=== PATIENT | male | born 1960 | race Caucasian/White ===

== ENCOUNTER 2017-06-06 07:51 | Outpatient (RCR) | payer OTHER, SELFPAY ==
--- NOTE | 2017-06-06 09:46 | HP.OTEVAL ---
Patient's Visit Information EDWARD HERNANDEZ is a 56 year old M, referred to Occupational Therapy by Andrea Dunn,, with a diagnosis of Radial Nerve Palsy. Date of Evaluation: 06/06/17 Occupational Therapist: Fariba Negrete - Subjective Subjective: Pt., Edward, arrived and noted symptoms start May 10. He noted he is able to move wirst but is 'extremely weak' and unable to extend fingers at this time. 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 He noted diffculty additionally with ADLs and tasks required bilateral hand integration at this time. He notes he went through both chemo and raidation for lung ca until October of this year. - Objective Objective/Observation: Edward presents with severes decreased stregth of R hand for finger flex/ext. He is able to actively move wrist at this time. Sensation is decreased for light touch and prtection reflex but still WFL. He has h/o finger dislocation on L dominant hand for 3rd and 4th fingers limiting ROM. He is able to form composite fist with B hands at this time. Concerns: Edward would benefit from Benik wrist based raidal nerve drop spint. He may also benefit from EKY/nerve conduction to further determine location of radial nerve impingement as he has noted some increased pain in cervical region. The Benik splint will help promote MCP and soft tissue alignment for him to complete work and home based tasks while strengthening R hand to return to PLOF. [facility] is not DME distrubuter and will not be able to order for client at this time. Please check if this can be ordered through insurance through [facility]. Size Medium/large. - ROM Wrist: flex R 0-70, L 0-70; ext R 5-45, L 0-66 MP: 2-5th R 9-74, 25-76, 31-77, 19-84; L 0-80, 0-77, -10-74, -7-75 PIP: 2nd-5th R 21-100, 33-102, 34-102, 25-98; L 2-99, 50-94, 65-95, 22-95 DIP: 2nd- 5th R 0-55, 0-60, 0-50, 0-43; L 0-51, 2-51, 4-45, 5-39 ROM Comments: Decreased PIP ROM on L 3rd and 4th fingers due to h/o joint displacement (early 80's) and contracture like deformity. - Strength Assistant Warehouse Manager: R 38, L 60 Lateral Pinch: R 10, L 20 Tripod Pinch: R 5, L 18 Tip-to-Tip Pinch: R 5 with increased compensations; L 14 Strength Comments: Compensations noted in three jaw and tip pinch on R affected hand through increased elbow winging to help increased pinch force. Will continue to monitor and address atrength concerns with PRE. - Sensation Thumb: volar R 2.83, L 3.61; dorsal R 3.61, L 3.61 Index: volar R3.22, L 3.61; dorsal R 3.61, L 3.81 Middle: volar R 3.22, L 3.84; dorsal R 3.61, L 3.61 Ring: volar R 3.22, L 3.81; dorsal R 3.61, L 3.22 Little: volar R 3.22, L 3.84; dorsal R 3.22, L 3.61 Sensation Comments: further two point to be completed ove rradial nerve innervation routes. - In-Hand Manipulation Finger to Palm Translation: Moderate - Right, Severe - Right, Normal - Left Palm to Finger Translation: Severe - Right, Normal - Left - DASH-Disabilities of Arm, Shoulder& Hand DASH Sum: 99 - Goals Goal:: Edward to increased R supervisor game farm to that within 10 lbs of L dominant hand 4/5 trials 80% of the time by d/c. Goal:: Edward to be able to complete R finger FMC and dexterity tasks WFL as measured through 9 hole/ purdue pegboard test to that of L nonaffected hand 2/3 trials 75% of the time by d/c. Goal:: Edward to be (I) to button shirt 4/5 trials 80% of the time to return to PLOF by time of d/c. Goal:: Edward to be (I) to complete splint program to promote alignment of fingers libertad work and home activities 4/5 trials 805 of the time by d/c. Goal:: Edward to be mod I to complete HEP to promote increased Natalio nd strength to R affected hand 4/5 trials 80% of the time by d/c. - Rehabilitation General Assessment: Edward is 56 y/o who presents with radial nerve palsy after wrist and below. He noted some discomofrt around neck region and noted no EKG has been performaned at this time to determine impngement of radial nerve. He is able to actively move R wrist but exhibits severely decreased strength and ROm in R compared to L non affected hand at this time. Sensation is decreased in B hands. He will start OT for PRE and fitting for radial nerve splint. Rehabilitation Potential: Excellent - Anticipated Interventions Anticipated Interventions: A/AAROM/PROM, Strengthening, Modalities, Joint Protection/Energy Conservation, Ergonomic Education, Fine Motor Coord/, ADL Training, Caregiver Training, Home Program - Visit Plan Frequency: 2x /Week Duration: 4-6 Weeks TEXT: Thank you for the opportunity to evaluate your patient. For Medicare and Medicare HMO plans, please review the plan of care and approve it. It will need to be FAXED BACK to us at [phone] for Medicare purposes. Please let me know if there are questions or concerns regarding this plan of care. Physician Signature: Date:
--- NOTE | 2017-06-06 10:00 | HP.OTEVAL ---
Patient's Visit Information EDWARD HERNANDEZ is a 56 year old M, referred to Occupational Therapy by Andrea Dunn,, with a diagnosis of Radial Nerve Palsy. Date of Evaluation: 06/06/17 Occupational Therapist: Fariba Negrete - Subjective Subjective: Pt., Edward, arrived and noted symptoms start May 10. He noted he is able to move wirst but is 'extremely weak' and unable to extend fingers at this time. 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 He noted diffculty additionally with ADLs and tasks required bilateral hand integration at this time. He notes he went through both chemo and raidation for lung ca until October of this year. - Objective Objective/Observation: Edward presents with severely decreased stregth of R hand for finger flex/ext. He is able to actively move wrist at this time. Sensation is decreased for light touch and protection reflex but still WFL. He has h/o finger dislocation at PIP on L dominant hand 3rd and 4th fingers limiting ROM. He is able to form composite fist with B hands at this time. Concerns: Edward would benefit from Benik wrist based radial nerve drop splint. He may also benefit from EKG/nerve conduction to further determine location of radial nerve impingement as he has noted some increased pain in cervical region. The Benik splint will help promote MCP and soft tissue alignment for him to complete work and home based tasks while strengthening R hand to return to PLOF. [facility] is not DME distrubuter and will not be able to order for client at this time. Please check if this can be ordered through insurance through [facility]. Size Medium/large. OT called Dr. Dunn'office. Spoke to Kizzy to request and explain need for splint. Talked later with Manjula who is working to get splint run through insurance. Please call at [phone] ([facility]) for additional questions. - ROM Wrist: flex R 0-70, L 0-70; ext R 5-45, L 0-66 MP: 2-5th R 9-74, 25-76, 31-77, 19-84; L 0-80, 0-77, -10-74, -7-75 PIP: 2nd-5th R 21-100, 33-102, 34-102, 25-98; L 2-99, 50-94, 65-95, 22-95 DIP: 2nd- 5th R 0-55, 0-60, 0-50, 0-43; L 0-51, 2-51, 4-45, 5-39 ROM Comments: Decreased PIP ROM on L 3rd and 4th fingers due to h/o joint displacement (early 80's) and contracture like deformity. - Strength Laundry Laborer: R 38, L 60 Lateral Pinch: R 10, L 20 Tripod Pinch: R 5, L 18 Tip-to-Tip Pinch: R 5 with increased compensations; L 14 Strength Comments: Compensations noted in three jaw and tip pinch on R affected hand through increased elbow winging to help increased pinch force. Will continue to monitor and address strength concerns with PRE. - Sensation Thumb: volar R 2.83, L 3.61; dorsal R 3.61, L 3.61 Index: volar R3.22, L 3.61; dorsal R 3.61, L 3.81 Middle: volar R 3.22, L 3.84; dorsal R 3.61, L 3.61 Ring: volar R 3.22, L 3.81; dorsal R 3.61, L 3.22 Little: volar R 3.22, L 3.84; dorsal R 3.22, L 3.61 Sensation Comments: further two point to be completed ove rradial nerve innervation routes. - In-Hand Manipulation Finger to Palm Translation: Moderate - Right, Severe - Right, Normal - Left Palm to Finger Translation: Severe - Right, Normal - Left - DASH-Disabilities of Arm, Shoulder& Hand DASH Sum: 99 - Goals Goal:: Edward to increased R customer energy specialist to that within 10 lbs of L dominant hand 4/5 trials 80% of the time by d/c. Goal:: Edward to be able to complete R finger FMC and dexterity tasks WFL as measured through 9 hole/ purdue pegboard test to that of L nonaffected hand 2/3 trials 75% of the time by d/c. Goal:: Edward to be (I) to button shirt 4/5 trials 80% of the time to return to PLOF by time of d/c. Goal:: Edward to be (I) to complete splint program to promote alignment of fingers libertad work and home activities 4/5 trials 805 of the time by d/c. Goal:: Edward to be mod I to complete HEP to promote increased Natalio nd strength to R affected hand 4/5 trials 80% of the time by d/c. - Rehabilitation General Assessment: Edward is 56 y/o who presents with radial nerve palsy after wrist and below. He noted some discomfort around neck region and noted no EKG has been performed at this time to determine impingement location. He has recently finished chemo and radiation for lung cancer and noted some discoloration and decreased circulation of hands seem to have started post treatments. He is able to actively move R wrist but exhibits severly decreased strength and ROM in R hand compared to L non affected hand at this time. Sensation is decreased in B hands. He will start OT for PRE and fitting for radial nerve splint. Rehabilitation Potential: Excellent - Anticipated Interventions Anticipated Interventions: A/AAROM/PROM, Strengthening, Modalities, Joint Protection/Energy Conservation, Ergonomic Education, Fine Motor Coord/, ADL Training, Caregiver Training, Home Program - Visit Plan Frequency: 2x /Week Duration: 4-6 Weeks General Plan: He will start with PRE to work on finger extension and increasing customer energy specialist and fx pinch patterns in all planes. Edward to be fitted for benik radial nerve splint. Symptoms will be monitored. TEXT: Thank you for the opportunity to evaluate your patient. For Medicare and Medicare HMO plans, please review the plan of care and approve it. It will need to be FAXED BACK to us at [phone] for Medicare purposes. Please let me know if there are questions or concerns regarding this plan of care. Physician Signature: Date:
--- NOTE | 2017-11-07 12:01 | HP.OT.NRP ---
HP - Discharge Summary - Patient Information EDWARD HERNANDEZ was seen in my office for initial evaluation on 06/06/17. The following Plan of Care was established for this patient: Initial Frequency: 2x /Week Initial Duration: 4-6 Weeks - Anticipated Interventions Anticipated Interventions: A/AAROM/PROM, Strengthening, Modalities, Joint Protection/Energy Conservation, Ergonomic Education, Fine Motor Coord/, ADL Training, Caregiver Training, Home Program This patient was last seen in our office 06/06/17. Pertinent comments regarding their Occupational therapy will appear below: Seen one time for therapy. followed up with phone call noting that cancer was back and in brain. Noted to hold chart as he might return later. He has not returned to therapy at this time and will be d/c'd. At this point I will be discontinuing this patient from occupational therapy. I would be happy to see this patient again in the future if found appropriate by the physician. Thank you! Fariba Negrete
== END 2017-06-06 08:15 | disposition home or self-care (01) ==
LOC: OT 07:51
PROVIDERS: Family Provider Internal Medicine; PCP Internal Medicine; Visit Provider Family Medicine
DX: G56.31 Lesion of radial nerve, right upper limb (principal)
CPT/HCPCS: 97166

== ENCOUNTER 2017-07-10 15:39 | Inpatient (IN) | payer OTHER, SELFPAY ==
[2017-07-10 15:40] VITALS: BP 101/52; PULSE 66; RESP 15; TEMP 36.1; O2SAT 95; BMI 30.4
[2017-07-10 15:55] LABS: Bedside Glucose 352 mg/dL (70-110)
--- NOTE | 2017-07-10 15:55 | RAD_ITS ---
STUDY: X-RAY CHEST REASON FOR EXAM: Male, 57 years old. Generalized weakness and high blood sugar. History of stage IV lung cancer with metastasis to brain. TECHNIQUE: Single AP portable view of the chest. COMPARISON: Prior chest radiograph of June 11, 2017. FINDINGS: The lung ramirez are generally hyperexpanded with with marked decrease in the right lower lung zone infiltrates and pleural effusion. Right hilar area remains prominent. Left lung is expanded and clear. Cardiomegaly with right atrial pacemaker and right ventricular defibrillator remaining in good position. Normal mediastinum and ruma. Normal visualized pulmonary arteries. Normal visualized aortic arch and descending thoracic aorta. Normal visualized ribs, clavicles, and shoulders. There is no demonstrated abnormality of the visualized soft tissue structures of the upper abdomen. RAD/Chest 1 View (Portable) IMPRESSION: Right hilum remaining prominent after a substantial improvement in the right lower lung infiltrates/atelectasis and pleural effusion. Left lung remains expanded and clear. Continued cardiomegaly. Right atrial and ventricular ICD unchanged. Electronically Signed: Lisa Rose MD at 16:22 EST , Service support ,
--- NOTE | 2017-07-10 15:58 | ED.VISSUMM ---
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 Patient went through chemotherapy last year and radiation therapy last week. He is inoperable. He also has cardiomyopathy and a prior history of A. fib. He was sent in today by his oncologist Dr. Rene Church for dehydration today and generalized weakness. Dr. Church feels he needs admitted. Patient is currently on prednisone for swelling of his brain secondary to brain metastases and has had elevated blood sugars and has no known history of diabetes. Physical Examination: Middle-aged male no acute distress. Vital signs are stable afebrile. Blood pressure 101/52. Pulse ox 95% on room air no hypoxia. HEENT exam unremarkable other than thrush on his tongue. Mildly dehydrated. Neck nontender no JVD. No lymphadenopathy. Lungs clear to auscultation bilaterally. Heart regular rate and rhythm no murmur. Abdomen soft and nontender. No peritoneal signs. He is moving all 4 extremities. He is weak on the right side both the right upper and right lower extremity which is from his brain metastases. Neurologically is awake and alert and follows commands. He does have a known right-sided weakness. Test Results: CBC white count 10 H&H 1751. No bands. Electrolytes show a gap of 10. Glucose of 289. BUN is 70 and creatinine of 2.02. Consistent with dehydration and renal insufficiency. His last creatinine was around 1.5 and before that they were normal. Emergency Department Course and Treatment: Patient will be hydrated with IV fluids. Screening labs be obtained. I will speak to the hospitalist about admission. Treatment Plan: Patient treated with IV fluids. He will be admitted. I very spoken to the hospitalist. Disposition: Admission Impression: Stage IV small cell lung CA with brain metastases Hyperglycemia Generalized weakness History of cardiomyopathy with A. fib and a pacemaker defibrillator Renal insufficiency Dehydration This note was generated with [employer] dictation software. It may contain incorrect words, spelling, and punctuation that were not noted in review of the chart prior to signing ED Disposition - Plan for ED Patient: Chief Complaint: Hyperglycemia Referrals: Branden Rebolledo MD [Primary Care Provider] -
[2017-07-10] MEDS: 0.9% Normal Saline 1,000 ML 1000 ML IV (16:08)
[2017-07-10 16:29] LABS: Hemoglobin 17.6 g/dl (13.0-16.5); Lymphocyte % 1.9 % (19-41); Mean Corp Hgb Conc 34.5 g/gl (32-36); Mean Corpuscular Hgb 32.4 pg (27.0-32.0); Mean Corpuscular Volume 93.9 fL (80-94); Monocyte# 0.16 X10^3/uL; Monocyte% 1.5 % (0-10); Neutrophil # 10.03 X10^3/uL (2.7-7.7); Neutrophil % 96.3 % (47-70); Platelet Count 93 K/mm3 (150-450); RBC Distribution Width CV 15.1 % (11.6-14.6); RBC Distribution Width SD 51.1 fl (35.1-43.9); Red Blood Count 5.43 M/mm3 (4.6-6.2); White Blood Count 10.4 K/mm3 (4.4-11.0)
[2017-07-10 16:31] LABS: Differential Indicated SCAN CRITERIA MET; POSITIVE COUNT NO; POSITIVE DIFFERENTIAL YES; POSITIVE MORPHOLOGY NO
[2017-07-10 16:34] VITALS: BP 105/70; PULSE 70; RESP 14; O2SAT 96
[2017-07-10 16:37] LABS: Anion Gap 10 (5-15); BUN 70 mg/dL (7-18); BUN/Creat Ratio 34.7 RATIO (10-20); Calcium,Total 8.5 mg/dL (8.5-10.1); Chloride 93 mmol/L (98-107); Creatinine, Serum 2.02 mg/dL (0.70-1.30); EST Glomerular Filtration Rate 36 mL/min (>60); Est Glom Filt Rate - Afr Amer 44 mL/min (>60); Estimated Creatinine Clearance 48.22 ml/min; Glucose 289 mg/dL (70-110); Potassium 4.4 mmol/L (3.5-5.1); Sodium Level 134 mmol/L (136-145)
--- NOTE | 2017-07-10 17:06 | NURSING ---
MED SURG TERMINAL LUNG CANCER SCOTT
[2017-07-10 17:07] LABS: Differential Comment SCANNED; Platelet Estimate SLT DEC (ADEQ)
[2017-07-10 17:55] VITALS: BP 100/64; PULSE 69; RESP 20; TEMP 36.3; O2SAT 100
[2017-07-10 18:00] VITALS: BMI 28.8
[2017-07-10 18:05] VITALS: BMI 28.9
--- NOTE | 2017-07-10 18:32 | PCM.HP.STD ---
<Madhu De La Torre - Last Filed: 07/10/17 18:57> Problem List (1) JERRY (acute kidney injury) Status: Acute (2) Cardiomyopathy Status: Chronic (3) Lung cancer metastatic to brain Status: Chronic (4) Hypertension Status: Chronic (5) Afib Status: Chronic (6) Seizure Status: Chronic (7) Debility Status: Chronic (8) Thrombocytopenia Status: Chronic History of Present Illness Date of Admission: 07/10/17 Chief Complaint: abnormal labs The patient is a 57 year old M who presented to the ER from Dr. Church's office for abnormal kidney function. He was told he was dehydrated and sent after showing up for an appointment to have a CT done. He has stage 4 lung cancer that has multiple mets to the brain. The patient was started on radiation this past month and has had multiple treatments. He is planning to pursue gamma knife therapy if the radiation is successful and more chemotherapy per Dr. Church. He believes the lung cancer is in remission, as it has not been treated since last November. The brain cancer was found after he developed weakness of his right hand and leg. This has significantly worsened in the past several days, with him being more weak and falling at home. He currently has no home care and he does not want placed anywhere. He states he should not be dehydrated as he has been drinking a lot of water, and he did not follow a recent order to increase his home bumex dose. He also has not had a history of diabetes, but is chronically on steroids and has recently developed uncontrolled blood sugar. He has never considered or had any discussion surrounding pallative care of hospice despite knowing that his disease is ultimately uncurable. He is not interested in hospice at this time. He would be interested in Home Care. [] Past Medical History Past Medical History (Chronic Problems): Chronic Problems Hypertension (Chronic) Afib (Chronic) Pacemaker (Chronic) Tobacco dependence (Chronic) Cardiomyopathy (Chronic) Lung cancer metastatic to brain (Chronic) Seizure (Chronic) Debility (Chronic) Thrombocytopenia (Chronic) Allergies No Known Allergies Allergy (Verified 06/11/17 14:25) Home Medications: Ambulatory Orders Medication Instructions Recorded Amiodarone HCl 400 mg PO QHS 04/19/16 Lisinopril [Zestril] 10 mg PO DAILY 04/19/16 Albuterol IH (ProAir) [Proair Hfa 1 - 2 puff INHALATION Q4H PRN PRN 06/11/17 (SP)Vent Pts] Bumetanide [Bumex] 2 mg PO DAILY 06/11/17 Digoxin 125 mcg PO SUMOWETHFR 06/11/17 Metoprolol Succinate 50 mg PO QHS 06/11/17 Spironolactone [Aldactone] 25 mg PO DAILY 06/11/17 Acetaminophen [Tylenol] 1 - 2 tab PO Q4H PRN PRN 07/10/17 Dexamethasone 4 mg PO Q8H 07/10/17 Levetiracetam [Keppra] 1,000 mg PO BID 07/10/17 Nystatin 5 ml PO 4X/DAY 07/10/17 Pantoprazole Sodium [Protonix] 40 mg PO DAILY 07/10/17 Surgical History: pacemaker implantation Psychiatric History: No pertinent psych hx Lives: Spouse/ Significant Other Smoking Status: Light Smoker (<10/day) Alcohol: None Drugs: None - *Family History Sibling History Items: Heart Disease Review of Systems Constitutional: Denies: Chills, Fever, Weight Change HEENT: Denies: Head Aches, Sinus Congestion, Sinus Drainage Cardiovascular: Denies: Chest Pain, Palpitations Respiratory: Denies: Cough, Shortness of breath at rest, Sputum production Gastrointestinal: Denies: Abdominal Pain, Nausea, Vomiting Genitourinary: Denies: Dysuria Musculoskeletal: Denies: Joint Pain, Joint Tenderness Skin: Denies: Rash, Wounds Neurological: Reports: - - right sided weakness. Denies: Focal weakness, Numbness, Tingling Psychiatric: Denies: Anxiety, Depression, Homicidal Ideations, Suicidal Ideations Hematologic/ Lymphatic: Denies: Easy Bruising, Easy Bleeding VTE Information - Inpt Only VTE Present on Admission: No VTE Mechan Device Prophylaxis: SCD's VTE Pharm Prophylaxis ordered?: No Reason prophylaxis not ordered:: Medical Contraindication Patient Problems: Active and Suspected Problems JERRY (acute kidney injury) (Acute) - Physical Exam Vital Signs Temp Pulse Resp BP Pulse Ox 97.4 F L 69 20 H 100/64 100 07/10/17 17:55 07/10/17 17:55 07/10/17 17:55 07/10/17 17:55 07/10/17 17:55 Oxygen Delivery Method Room Air Weight: 104.7 kg Body Mass Index (BMI) 28.8 Assessment/Plan Active and Suspected Problems JERRY (acute kidney injury) (Acute) 1. JERRY - BUN 70 with creatinine 2.02. unclear etiology. Doubt dehydration as he reports heavy PO intake. DC lisinopril and bumex for now. Gentle IV fluids. Glucose goal 130. Check renal ultrasound. 2. SC lung cancer with metastatic disease to the brain - pt not interested in hospice at this point. He is undergoing radiation and plans for gamma knife and more chemo. His symptoms of right sided weakness have worsened over the past week. He also was found to have a seizure disorder after the brain mets were found when he was found to have a new tremor in his leg. He has recently been started on anti epileptics. Consult to Dr. Church for further recommendations. 3. 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 Start weight based levemir with sliding scale insulin. Check A1C. 4. Cardiomyopathy - unclear subtype. Avoid over hydrating the patient. 5. Paroxysmal atrial fibrillation - recently taken off of warfarin when the brain mets were found. Continue BB and amiodarone 6. Mild hyponatremia possibly 2/2 diuretic or lung cancer. 7. Seizure disorder - focal, LE suspected 2/2 brain mets. Continue home meds. 8. Debility - falls at home recently 2/2 R sided weakness. PTOT. 9. Thrombocytopenia - unclear etiology. No heparin products. DVT ppx: SCDs, chemoppx contraindicated with #9. DC planning: Pt wants to go home. I suggest home health as he has been falling at home. This patient was seen by Madhu De La Torre PA-C under the supervision of Doctor Steffen. <Dev Bourne - Last Filed: 07/10/17 21:17> History of Present Illness Seen and examined. Patient has a history of lung cancer, stage IV with multiple metastases to the brain. He had chemoradiation of lung completed last year; as per the in remission. He has been brain metastases for which he completed 10 sessions of radiation, last week. Chest x-ray that was done in the ER shows substantial improvement in right lower lung infiltrate/atelectasis and pleural effusion as compared to previous chest x-ray of June 11, 2017. Past Medical History Allergies No Known Allergies Allergy (Verified 06/11/17 14:25) - Physical Exam General: Alert, Oriented x3, Cooperative HEENT: Atraumatic, PERRLA, EOMI, Normocephalic Neck: Supple, No JVD, Negative Carotid Bruits Lungs: Diminished, - - Small area of stony dullness at right 10th intercostal space posteriorly Cardiovascular: Regular rate, Regular Rhythm, Normal S1, Normal S2, No murmurs Abdomen: Bowel Sounds Present, Soft, Non Tender, Non-Distended Extremities: No edema, Capillary Refill Less than 3 Seconds Skin: - - Bruise present all over, predominantly in upper extremities. Multiples skin and subcutaneous nodules present on the back, patient states present since teenage and benign. Musculoskeletal: No Tenderness to Palpation of Joints or Extremities, Arthritic Changes, Muscle Wasting Neurological: Cranial nerves II-XII grossly intact Psych/Mental Status: Normal Affect, Appropriate Vital Signs Temp Pulse Resp BP Pulse Ox 97.4 F L 69 20 H 100/64 100 07/10/17 17:55 07/10/17 17:55 07/10/17 17:55 07/10/17 17:55 07/10/17 17:55 Oxygen Delivery Method Room Air Weight: 230 lb 13.184 oz Body Mass Index (BMI) 28.8 Assessment/Plan This patient was seen in conjunction with Madhu MCKEON. I have independently interviewed and examined the patient and reviewed pertinent history, examination findings, laboratory and plan of management. I have reviewed the note and agree with the documented findings with the few additional points. In brief, patient is admitted for acute kidney injury most rarely prerenal from dehydration. Continue IV fluid hydration. Patient also feels very weak and has fallen about 3 times in last 2 days. Patient using walker as per the . At this point, anticoagulant/antiplatelet is contraindicated because of multiple bruits and thrombocytopenia. PT and INR ordered. Machine Lead Burner consult. Advance care directive discussed with the patient currently, they are not able to make any decision but want palliative care help. Palliative care consult. For now continue full code. About 16 minutes is spent on discussing advanced care directive. I have discussed my assessment with Madhu MCKEON and orders have been reviewed. Code Visit Inpatient E&M: 15813 Init Hosp L3 Procedures: 93380 Advncd Care Plan 30 Min
--- NOTE | 2017-07-10 18:48 | HP.PCM_ITS ---
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 Original Note: <Madhu De La Torre - Last Filed: 07/10/17 18:57> Problem List (1) JERRY (acute kidney injury) Status: Acute (2) Cardiomyopathy Status: Chronic (3) Lung cancer metastatic to brain Status: Chronic (4) Hypertension Status: Chronic (5) Afib Status: Chronic (6) Seizure Status: Chronic (7) Debility Status: Chronic (8) Thrombocytopenia Status: Chronic History of Present Illness Date of Admission: 07/10/17 Chief Complaint: abnormal labs The patient is a 57 year old M who presented to the ER from Dr. Church's office for abnormal kidney function. He was told he was dehydrated and sent after showing up for an appointment to have a CT done. He has stage 4 lung cancer that has multiple mets to the brain. The patient was started on radiation this past month and has had multiple treatments. He is planning to pursue gamma knife therapy if the radiation is successful and more chemotherapy per Dr. Church. He believes the lung cancer is in remission, as it has not been treated since last November. The brain cancer was found after he developed weakness of his right hand and leg. This has significantly worsened in the past several days, with him being more weak and falling at home. He currently has no home care and he does not want placed anywhere. He states he should not be dehydrated as he has been drinking a lot of water, and he did not follow a recent order to increase his home bumex dose. He also has not had a history of diabetes, but is chronically on steroids and has recently developed uncontrolled blood sugar. He has never considered or had any discussion surrounding pallative care of hospice despite knowing that his disease is ultimately uncurable. He is not interested in hospice at this time. He would be interested in Home Care. [] Past Medical History Past Medical History (Chronic Problems): Chronic Problems Hypertension (Chronic) Afib (Chronic) Pacemaker (Chronic) Tobacco dependence (Chronic) Cardiomyopathy (Chronic) Lung cancer metastatic to brain (Chronic) Seizure (Chronic) Debility (Chronic) Thrombocytopenia (Chronic) Allergies No Known Allergies Allergy (Verified 06/11/17 14:25) Home Medications: Ambulatory Orders Medication Instructions Recorded Amiodarone HCl 400 mg PO QHS 04/19/16 Lisinopril [Zestril] 10 mg PO DAILY 04/19/16 Albuterol IH (ProAir) [Proair Hfa 1 - 2 puff INHALATION Q4H PRN PRN 06/11/17 (SP)Vent Pts] Bumetanide [Bumex] 2 mg PO DAILY 06/11/17 Digoxin 125 mcg PO SUMOWETHFR 06/11/17 Metoprolol Succinate 50 mg PO QHS 06/11/17 Spironolactone [Aldactone] 25 mg PO DAILY 06/11/17 Acetaminophen [Tylenol] 1 - 2 tab PO Q4H PRN PRN 07/10/17 Dexamethasone 4 mg PO Q8H 07/10/17 Levetiracetam [Keppra] 1,000 mg PO BID 07/10/17 Nystatin 5 ml PO 4X/DAY 07/10/17 Pantoprazole Sodium [Protonix] 40 mg PO DAILY 07/10/17 Surgical History: pacemaker implantation Psychiatric History: No pertinent psych hx Lives: Spouse/ Significant Other Smoking Status: Light Smoker (<10/day) Alcohol: None Drugs: None - *Family History Sibling History Items: Heart Disease Review of Systems Constitutional: Denies: Chills, Fever, Weight Change HEENT: Denies: Head Aches, Sinus Congestion, Sinus Drainage Cardiovascular: Denies: Chest Pain, Palpitations Respiratory: Denies: Cough, Shortness of breath at rest, Sputum production Gastrointestinal: Denies: Abdominal Pain, Nausea, Vomiting Genitourinary: Denies: Dysuria Musculoskeletal: Denies: Joint Pain, Joint Tenderness Skin: Denies: Rash, Wounds Neurological: Reports: - - right sided weakness. Denies: Focal weakness, Numbness, Tingling Psychiatric: Denies: Anxiety, Depression, Homicidal Ideations, Suicidal Ideations Hematologic/ Lymphatic: Denies: Easy Bruising, Easy Bleeding VTE Information - Inpt Only VTE Present on Admission: No VTE Mechan Device Prophylaxis: SCD's VTE Pharm Prophylaxis ordered?: No Reason prophylaxis not ordered:: Medical Contraindication Patient Problems: Active and Suspected Problems JERRY (acute kidney injury) (Acute) - Physical Exam Vital Signs Temp Pulse Resp BP Pulse Ox 97.4 F L 69 20 H 100/64 100 07/10/17 17:55 07/10/17 17:55 07/10/17 17:55 07/10/17 17:55 07/10/17 17:55 Oxygen Delivery Method Room Air Weight: 104.7 kg Body Mass Index (BMI) 28.8 Assessment/Plan Active and Suspected Problems JERRY (acute kidney injury) (Acute) 1. JERRY - BUN 70 with creatinine 2.02. unclear etiology. Doubt dehydration as he reports heavy PO intake. DC lisinopril and bumex for now. Gentle IV fluids. Glucose goal 130. Check renal ultrasound. 2. SC lung cancer with metastatic disease to the brain - pt not interested in hospice at this point. He is undergoing radiation and plans for gamma knife and more chemo. His symptoms of right sided weakness have worsened over the past week. He also was found to have a seizure disorder after the brain mets were found when he was found to have a new tremor in his leg. He has recently been started on anti epileptics. Consult to Dr. Church for further recommendations. 3. 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 Start weight based levemir with sliding scale insulin. Check A1C. 4. Cardiomyopathy - unclear subtype. Avoid over hydrating the patient. 5. Paroxysmal atrial fibrillation - recently taken off of warfarin when the brain mets were found. Continue BB and amiodarone 6. Mild hyponatremia possibly 2/2 diuretic or lung cancer. 7. Seizure disorder - focal, LE suspected 2/2 brain mets. Continue home meds. 8. Debility - falls at home recently 2/2 R sided weakness. PTOT. 9. Thrombocytopenia - unclear etiology. No heparin products. DVT ppx: SCDs, chemoppx contraindicated with #9. DC planning: Pt wants to go home. I suggest home health as he has been falling at home. This patient was seen by Madhu De La Torre PA-C under the supervision of Doctor Steffen. <Dev Bourne - Last Filed: 07/10/17 21:17> History of Present Illness Seen and examined. Patient has a history of lung cancer, stage IV with multiple metastases to the brain. He had chemoradiation of lung completed last year; as per the in remission. He has been brain metastases for which he completed 10 sessions of radiation, last week. Chest x-ray that was done in the ER shows substantial improvement in right lower lung infiltrate/atelectasis and pleural effusion as compared to previous chest x-ray of June 11, 2017. Past Medical History Allergies No Known Allergies Allergy (Verified 06/11/17 14:25) - Physical Exam General: Alert, Oriented x3, Cooperative HEENT: Atraumatic, PERRLA, EOMI, Normocephalic Neck: Supple, No JVD, Negative Carotid Bruits Lungs: Diminished, - - Small area of stony dullness at right 10th intercostal space posteriorly Cardiovascular: Regular rate, Regular Rhythm, Normal S1, Normal S2, No murmurs Abdomen: Bowel Sounds Present, Soft, Non Tender, Non-Distended Extremities: No edema, Capillary Refill Less than 3 Seconds Skin: - - Bruise present all over, predominantly in upper extremities. Multiples skin and subcutaneous nodules present on the back, patient states present since teenage and benign. Musculoskeletal: No Tenderness to Palpation of Joints or Extremities, Arthritic Changes, Muscle Wasting Neurological: Cranial nerves II-XII grossly intact Psych/Mental Status: Normal Affect, Appropriate Vital Signs Temp Pulse Resp BP Pulse Ox 97.4 F L 69 20 H 100/64 100 07/10/17 17:55 07/10/17 17:55 07/10/17 17:55 07/10/17 17:55 07/10/17 17:55 Oxygen Delivery Method Room Air Weight: 230 lb 13.184 oz Body Mass Index (BMI) 28.8 Assessment/Plan This patient was seen in conjunction with Madhu MCKEON. I have independently interviewed and examined the patient and reviewed pertinent history, examination findings, laboratory and plan of management. I have reviewed the note and agree with the documented findings with the few additional points. In brief, patient is admitted for acute kidney injury most rarely prerenal from dehydration. Continue IV fluid hydration. Patient also feels very weak and has fallen about 3 times in last 2 days. Patient using walker as per the . At this point, anticoagulant/antiplatelet is contraindicated because of multiple bruits and thrombocytopenia. PT and INR ordered. Ultrasound Sonographer consult. Advance care directive discussed with the patient currently, they are not able to make any decision but want palliative care help. Palliative care consult. For now continue full code. About 16 minutes is spent on discussing advanced care directive. I have discussed my assessment with Madhu MCKEON and orders have been reviewed. Code Visit Inpatient E&M: 07982 Init Hosp L3 Procedures: 42950 Advncd Care Plan 30 Min
--- NOTE | 2017-07-10 18:50 | US_ITS ---
STUDY: RENAL ULTRASOUND - COMPLETE REASON FOR EXAM: Male, 57 years old. Acute renal failure. History of terminal lung cancer. TECHNIQUE: Ultrasound evaluation of the kidneys was performed with real-time and static price-scale imaging. COMPARISON: None. FINDINGS: RIGHT KIDNEY: Normal location of the right kidney, which is normal in size. The right kidney measures 10.5 x 4.6 x 5.5 cm. There is a normal cortex of the right kidney. The renal cortex measures 1.7 cm. 1 cm exophytic cyst of the midpole. There are no right renal calculi. There is no right hydronephrosis. DISTAL RIGHT URETER: There is non-visualization of the distal right ureter. There is no demonstrated right ureteral jet. LEFT KIDNEY: Normal location of the left kidney, which is normal in size. The left kidney measures 11.9 x 4.9 x 5.8 cm. There is a normal cortex of the left kidney. The renal cortex measures 1.7 cm. There is no left renal mass or cyst. There are no left renal calculi. There is no left hydronephrosis. DISTAL LEFT URETER: There is non-visualization of the distal left ureter. There is no demonstrated left ureterovesical junction calculus. There is a visualized left ureteral jet. BLADDER: The distended urinary bladder has a volume of 192 ml. There is a normal wall thickness of the distended urinary bladder. There is no demonstrated mass within the urinary bladder. There are no demonstrated bladder calculi. US/Kidney and Bladder IMPRESSION: Normal size kidneys bilaterally without hydronephrosis or stones. 1 cm exophytic cyst of the right kidney. Unremarkable urinary bladder. Electronically Signed: Lisa Rose MD at 22:11 EST , Service support ,
[2017-07-10] MEDS: 0.9% Normal Saline 1,000 ML 75 ML IV (20:23)
[2017-07-10 20:30] LABS: Thyroid Stim Hormone (TSH) 1.23 uIU/mL (0.358-3.74)
[2017-07-10 20:52] LABS: Hemoglobin A1c 7.3 % (4.2-6.3)
[2017-07-10 21:53] VITALS: BP 111/73; PULSE 63; RESP 18; TEMP 36.2; O2SAT 99
[2017-07-10 22:00] VITALS: PULSE 63
[2017-07-10] MEDS: NYSTATIN 500,000 UNIT/5 ML UDC 500000 UNIT PO (22:00)
[2017-07-10] MEDS: Metoprolol(XL)Succ 50 MG Tablet PO (22:00)
[2017-07-10] MEDS: Amiodarone 200 MG Tablet 400 MG PO (22:01)
[2017-07-10] MEDS: levETIRAcetam 1,000 MG Tablet 1000 MG PO (22:03)
[2017-07-10] MEDS: Glucerna Shake 120 ML LIQUID PO (22:11)
[2017-07-10 23:01] LABS: International Normalized Ratio 1.3; Prothrombin Time (Protime)PT. 15.7 SECONDS (11.7-14.9)
[2017-07-10 23:02] LABS: Partial Thromboplast Time 23.8 Seconds (24.1-36.2)
[2017-07-10] MEDS: 0.9% Normal Saline 1,000 ML 125 ML IV (23:07)
[2017-07-10 23:21] LABS: Bedside Glucose 283 mg/dL (70-110)
[2017-07-11] VITALS (7 sets, daily range): BP systolic 108–120; BP diastolic 70–86; PULSE 62–66; RESP 14–18; TEMP 36.6–37; O2SAT 97–100
[2017-07-11 06:23] LABS: Absolute Lymphocyte Count 0.27 X10^3/ul (0.83-4.51); Absolute Neutrophil Count 8.5 X10^3/uL (2.0-7.7); Eosinophil# 0.01 X10^3/uL; Eosinophils% 0.1 % (0-5); Hematocrit 43.9 % (40-54); Hemoglobin 15.4 g/dl (13.0-16.5); Lymphocyte # 0.27 X10^3/ul (4.0); Mean Corp Hgb Conc 35.1 g/gl (32-36); Mean Platelet Vol. 9.4 fl (6.2-12.0); Monocyte# 0.26 X10^3/uL; Monocyte% 2.9 % (0-10); Neutrophil # 8.45 X10^3/uL (2.7-7.7); Neutrophil % 93.6 % (47-70); Platelet Count 77 K/mm3 (150-450); RBC Distribution Width CV 14.9 % (11.6-14.6); RBC Distribution Width SD 49.2 fl (35.1-43.9); Red Blood Count 4.67 M/mm3 (4.6-6.2)
[2017-07-11 06:25] LABS: Differential Indicated SCAN CRITERIA MET; POSITIVE COUNT NO; POSITIVE DIFFERENTIAL YES; POSITIVE MORPHOLOGY NO
[2017-07-11 06:29] LABS: Anion Gap 9 (5-15); BUN 60 mg/dL (7-18); BUN/Creat Ratio 35.7 RATIO (10-20); Chloride 101 mmol/L (98-107); Creatinine, Serum 1.68 mg/dL (0.70-1.30); EST Glomerular Filtration Rate 45 mL/min (>60); Est Glom Filt Rate - Afr Amer 54 mL/min (>60); Estimated Creatinine Clearance 57.98 ml/min; Glucose 209 mg/dL (70-110); Potassium 4.3 mmol/L (3.5-5.1); Sodium Level 134 mmol/L (136-145)
[2017-07-11] MEDS: 0.9% Normal Saline 1,000 ML 125 ML IV ×3 (07:03→22:18)
[2017-07-11 07:11] LABS: Bedside Glucose 230 mg/dL (70-110)
--- NOTE | 2017-07-11 07:56 | PCM.PN.HOSP ---
Patient Problems: Active and Suspected Problems JERRY (acute kidney injury) (Acute) Subjective: Patient with no acute events overnight per self and per nursing report. He notes feeling mildly improved since admission and per staff has been eating quite well as well as appropriate fluid intake. Patient states that he does have increased right upper and lower extremity weakness as well as onset now of left lower extremity weakness over the last several weeks which has been progressively worsening. He notes that he was supposed to have CT evaluation for continued evaluation for possible gamma knife intervention however this was deferred and he was referred to the emergency room secondary to evidence of acute kidney injury. Patient denies fevers, chills, nausea, emesis, abdominal pain, chest pain or dyspnea. Objective: Physical Examination: General: awake, alert, oriented x 3 and cooperative, seated upright in bed in no apparent distress. Skin: normal color, turgor, no icterus, cyanosis except bilateral lower extremity small ecchymotic regions diffusely. HEENT: AT/NC, EOMI, PERRLA, MMM. Lungs: CTA bilaterally, moderate effort, mild decrease BL bases, no rales, ronchi or wheezing. Heart: Regular rate and rhythm; no gallop, rub audible. Abdomen: soft, NTTP, ND, normal BS. Extremities: no cyanosis, clubbing, BL mild ankle edema. Neurological: patient awake, alert, oriented x 3; cognitive function intact; pupils equally reactive to light and accomodation; cranial nerves II-XII grossly normal, moving all 4 extremities but limited RU, RL and some LLE, strength R sided 3-4/5, LLE 4/5, sensation intact, equiv babinski, difficulty with FTN, HTS R sided secondary to weakness, strength severely globally decreased. Psychiatric: affect appears normal, no acute evidence of depressive or anxiety feelings. Vitals/I&O's: Vital Signs Temp Pulse Resp BP Pulse Ox 97.9 F 62 18 113/74 98 07/11/17 03:14 07/11/17 03:14 07/11/17 03:14 07/11/17 03:14 07/11/17 03:14 Oxygen Delivery Method Room Air Weight: 230 lb 13.184 oz Body Mass Index (BMI) 28.8 Intake and Output for Last 24 Hours 07/09/17 07/10/17 07/11/17 23:59 23:59 23:59 Intake Total 843 / 843 978 / 978 Output Total 475 / 475 Balance 368 / 368 978 / 978 Laboratory Results 07/10/17 21:57: POC Glucose 283 H 07/10/17 22:15: PT 15.7 H, INR 1.3, APTT 23.8 L 07/11/17 05:42: WBC 9.0, RBC 4.67, Hgb 15.4, Hct 43.9, MCV 94.0, MCH 33.0 H, MCHC 35.1, RDW 14.9 H, RDW Differential 49.2 H, Plt Count 77 L, MPV 9.4, Immature Gran % (Auto) 0.400, Neut % (Auto) 93.6 H, Lymph % (Auto) 3.0 L, Sabine % (Auto) 2.9, Eos % (Auto) 0.1, Baso % (Auto) 0.0, Absolute Neuts (auto) 8.5 H, Absolute Lymphs (auto) 0.27 L, Total Counted Not Reportable 07/11/17 05:42: Sodium 134 L, Potassium 4.3, Chloride 101, Carbon Dioxide 24.0, Anion Gap 9, BUN 60 H, Creatinine 1.68 H, Estim Creat Clear Calc 57.98, Est GFR (MDRD) Af Amer 54 L, Est GFR (MDRD) Non-Af 45 L, BUN/Creatinine Ratio 35.7 H, Glucose 209 H, Calcium 8.0 L 07/11/17 06:51: POC Glucose 230 H Current Medications Albuterol Sulfate (Ventolin Aerosols) 2.5 mg INHALATION Q2H PRN PRN PRN Reason: SOB &/OR WHEEZING Amiodarone HCl (Cordarone) 400 mg PO QHS [facility] Last Admin: 07/10/17 22:01 Dose: 400 mg Dexamethasone (Decadron) 4 mg PO Q8 [facility] Last Admin: 07/11/17 06:56 Dose: 4 mg Dextrose (D50w Syringe) 0 gm IV X1 PRN; Protocol PRN Reason: Hypoglycemia Digoxin (Lanoxin) 125 mcg PO SUMOWETHFR [facility] Glucagon () 1 mg IM .X1 PRN PRN Reason: Hypoglycemia Sodium Chloride () 1,000 mls @ 125 mls/hr IV .Q8H [facility] Last Admin: 07/11/17 07:03 Dose: 125 mls/hr Insulin Aspart (Novolog Flexpen (Bk)) 0 units SC ACHS MIGUEL A PRN Reason: Protocol Last Admin: 07/11/17 06:56 Dose: 2 u Insulin Detemir (Levemir (Bk)) 20 units SC QHS [facility] Last Admin: 07/10/17 22:11 Dose: 20 u Levetiracetam (Keppra) 1,000 mg PO BID [facility] Last Admin: 07/10/17 22:03 Dose: 1,000 mg Metoprolol Succinate (Toprol Xl (Beta Karishma)) 50 mg PO QHS [facility] Last Admin: 07/10/17 22:00 Dose: 50 mg Nutritional Formula (Lactose Free) (Glucerna Shake) 120 ml PO 4X/DAY [facility] Last Admin: 07/10/17 22:11 Dose: 120 ml Nystatin (Nystatin) 500,000 unit PO 4X/DAY [facility] Last Admin: 07/10/17 22:00 Dose: 500,000 unit Ondansetron HCl (Zofran) 8 mg PO Q8H PRN PRN PRN Reason: NAUSEA Pantoprazole Sodium (Protonix) 40 mg PO DAILY [facility] Sodium Chloride () 5 - 30 ml IV UD PRN PRN Reason: SALINE FLUSH Assessment/Plan Active and Suspected Problems JERRY (acute kidney injury) (Acute) The patient is a 57 y/o M w/ PMHx: HTN, HLD, Chronic Atrial Fibrillation, Cardiomyopathy, Seizure disorder, Chronic Thrombocytopenia, Stage IV Lung Cancer w/ metastatic disease to the brain w/ resulting initially R sided mild weakness following w/ Dr. Church with recent radiation treatments with planned gamma knife therapy if radiation successful and additional chemotherapy who now presents to the [facility] ED on 07/10/17 with worsened R sided weakness, recent falls, malaise, poor oral intake. (1) Acute kidney injury w/ Hyponatremia, Hypovolemic: Secondary to ? poor oral intake but from evaluation, does not appear to be an issue, unclear specific etiology, but improving. Admission Na 134 and BUN/Cr 70/2.02, prior baseline creatinine noted to be 1.2. Renal US not marked appearing. Will continue to hydrate, hold nephrotoxic medications and trend renal function. 07/11/17 BUN/Cr 60/1.68. PT, OT consulted for discharge planning. (2) Stage IV Lung Cancer w/ metastatic disease w/ Seizure disorder: Noted metastatic disease to the brain w/ resulting initially R sided mild weakness following w/ Dr. Church with recent radiation treatments with planned gamma knife therapy if radiation successful and additional chemotherapy. Hem/Onc consulted, maintain on AEDs w/ keppra, continue IV dexamethasone, PRN albuterol. (3) Hyperglycemia w/ New Onset Diabetes mellitus type II: No DM history, ongoing chronic steroid usage, HgBA1c 7.3%, maintain on ADA diet, accu checks w/ ISS, levemir 20 u BID added. Upon discharge if renal function appropriate will necessitate start of metformin. (4) BL LE Discomfort, Calf Pain: From description sounds more like muscle cramping, possibly associated with electrolyte disturbances however to be cautious given high risk will obtain bilateral lower extremity DVT ultrasound. (5) Hypertension: Continue home regimen including Toprol with hold parameters given recent poor intake and dehydration. Holding spironolactone, bumex, ACEI given JERRY. PRN hydralazine. (6) Hyperlipidemia: Not on statin therapy. (7) Chronic AF: s/p pacemaker/AICD. Not anticoagulation candidate given metastatic CA to brain, continued on BB, digoxin and amiodarone. (8) Chronic Thrombocytopenia: Admission plts 93, 2 Plts 77, trend, defer chemoprophylaxis. (9) GERD: PPI. (10) DVT Prophylaxis: SCDs, defer chemoprophylaxis secondary to metastatic CA to the brain and thrombocytopenia. Code Visit Inpatient E&M: 90229 Subs Hosp L2
--- NOTE | 2017-07-11 08:07 | PN_ITS ---
Patient Problems: Active and Suspected Problems JERRY (acute kidney injury) (Acute) Subjective: Patient with no acute events overnight per self and per nursing report. He notes feeling mildly improved since admission and per staff has been eating quite well as well as appropriate fluid intake. Patient states that he does have increased right upper and lower extremity weakness as well as onset now of left lower extremity weakness over the last several weeks which has been progressively worsening. He notes that he was supposed to have CT evaluation for continued evaluation for possible gamma knife intervention however this was deferred and he was referred to the emergency room secondary to evidence of acute kidney injury. Patient denies fevers, chills, nausea, emesis, abdominal pain, chest pain or dyspnea. Objective: Physical Examination: General: awake, alert, oriented x 3 and cooperative, seated upright in bed in no apparent distress. Skin: normal color, turgor, no icterus, cyanosis except bilateral lower extremity small ecchymotic regions diffusely. HEENT: AT/NC, EOMI, PERRLA, MMM. Lungs: CTA bilaterally, moderate effort, mild decrease BL bases, no rales, ronchi or wheezing. Heart: Regular rate and rhythm; no gallop, rub audible. Abdomen: soft, NTTP, ND, normal BS. Extremities: no cyanosis, clubbing, BL mild ankle edema. Neurological: patient awake, alert, oriented x 3; cognitive function intact; pupils equally reactive to light and accomodation; cranial nerves II-XII grossly normal, moving all 4 extremities but limited RU, RL and some LLE, strength R sided 3-4/5, LLE 4/5, sensation intact, equiv babinski, difficulty with FTN, HTS R sided secondary to weakness, strength severely globally decreased. Psychiatric: affect appears normal, no acute evidence of depressive or anxiety feelings. Vitals/I&O's: Vital Signs Temp Pulse Resp BP Pulse Ox 97.9 F 62 18 113/74 98 07/11/17 03:14 07/11/17 03:14 07/11/17 03:14 07/11/17 03:14 07/11/17 03:14 Oxygen Delivery Method Room Air Weight: 230 lb 13.184 oz Body Mass Index (BMI) 28.8 Intake and Output for Last 24 Hours 07/09/17 07/10/17 07/11/17 23:59 23:59 23:59 Intake Total 843 / 843 978 / 978 Output Total 475 / 475 Balance 368 / 368 978 / 978 Laboratory Results 07/10/17 21:57: POC Glucose 283 H 07/10/17 22:15: PT 15.7 H, INR 1.3, APTT 23.8 L 07/11/17 05:42: WBC 9.0, RBC 4.67, Hgb 15.4, Hct 43.9, MCV 94.0, MCH 33.0 H, MCHC 35.1, RDW 14.9 H, RDW Differential 49.2 H, Plt Count 77 L, MPV 9.4, Immature Gran % (Auto) 0.400, Neut % (Auto) 93.6 H, Lymph % (Auto) 3.0 L, Ponce % (Auto) 2.9, Eos % (Auto) 0.1, Baso % (Auto) 0.0, Absolute Neuts (auto) 8.5 H, Absolute Lymphs (auto) 0.27 L, Total Counted Not Reportable 07/11/17 05:42: Sodium 134 L, Potassium 4.3, Chloride 101, Carbon Dioxide 24.0, Anion Gap 9, BUN 60 H, Creatinine 1.68 H, Estim Creat Clear Calc 57.98, Est GFR (MDRD) Af Amer 54 L, Est GFR (MDRD) Non-Af 45 L, BUN/Creatinine Ratio 35.7 H, Glucose 209 H, Calcium 8.0 L 07/11/17 06:51: POC Glucose 230 H Current Medications Albuterol Sulfate (Ventolin Aerosols) 2.5 mg INHALATION Q2H PRN PRN PRN Reason: SOB &/OR WHEEZING Amiodarone HCl (Cordarone) 400 mg PO QHS [facility] Last Admin: 07/10/17 22:01 Dose: 400 mg Dexamethasone (Decadron) 4 mg PO Q8 [facility] Last Admin: 07/11/17 06:56 Dose: 4 mg Dextrose (D50w Syringe) 0 gm IV X1 PRN; Protocol PRN Reason: Hypoglycemia Digoxin (Lanoxin) 125 mcg PO SUMOWETHFR [facility] Glucagon () 1 mg IM .X1 PRN PRN Reason: Hypoglycemia Sodium Chloride () 1,000 mls @ 125 mls/hr IV .Q8H [facility] Last Admin: 07/11/17 07:03 Dose: 125 mls/hr Insulin Aspart (Novolog Flexpen (Bk)) 0 units SC ACHS MIGUEL A PRN Reason: Protocol Last Admin: 07/11/17 06:56 Dose: 2 u Insulin Detemir (Levemir (Bk)) 20 units SC QHS [facility] Last Admin: 07/10/17 22:11 Dose: 20 u Levetiracetam (Keppra) 1,000 mg PO BID [facility] Last Admin: 07/10/17 22:03 Dose: 1,000 mg Metoprolol Succinate (Toprol Xl (Beta Karishma)) 50 mg PO QHS [facility] Last Admin: 07/10/17 22:00 Dose: 50 mg Nutritional Formula (Lactose Free) (Glucerna Shake) 120 ml PO 4X/DAY [facility] Last Admin: 07/10/17 22:11 Dose: 120 ml Nystatin (Nystatin) 500,000 unit PO 4X/DAY [facility] Last Admin: 07/10/17 22:00 Dose: 500,000 unit Ondansetron HCl (Zofran) 8 mg PO Q8H PRN PRN PRN Reason: NAUSEA Pantoprazole Sodium (Protonix) 40 mg PO DAILY [facility] Sodium Chloride () 5 - 30 ml IV UD PRN PRN Reason: SALINE FLUSH Assessment/Plan Active and Suspected Problems JERRY (acute kidney injury) (Acute) The patient is a 57 y/o M w/ PMHx: HTN, HLD, Chronic Atrial Fibrillation, Cardiomyopathy, Seizure disorder, Chronic Thrombocytopenia, Stage IV Lung Cancer w/ metastatic disease to the brain w/ resulting initially R sided mild weakness following w/ Dr. Church with recent radiation treatments with planned gamma knife therapy if radiation successful and additional chemotherapy who now presents to the [facility] ED on 07/10/17 with worsened R sided weakness, recent falls, malaise, poor oral intake. (1) Acute kidney injury w/ Hyponatremia, Hypovolemic: Secondary to ? poor oral intake but from evaluation, does not appear to be an issue, unclear specific etiology, but improving. Admission Na 134 and BUN/Cr 70/2.02, prior baseline creatinine noted to be 1.2. Renal US not marked appearing. Will continue to hydrate, hold nephrotoxic medications and trend renal function. 07/11/17 BUN/Cr 60 /1.68. PT, OT consulted for discharge planning. (2) Stage IV Lung Cancer w/ metastatic disease w/ Seizure disorder: Noted metastatic disease to the brain w/ resulting initially R sided mild weakness following w/ Dr. Church with recent radiation treatments with planned gamma knife therapy if radiation successful and additional chemotherapy. Hem/Onc consulted, maintain on AEDs w/ keppra, continue IV dexamethasone, PRN albuterol. (3) Hyperglycemia w/ New Onset Diabetes mellitus type II: No DM history, ongoing chronic steroid usage, HgBA1c 7.3%, maintain on ADA diet, accu checks w / ISS, levemir 20 u BID added. Upon discharge if renal function appropriate will necessitate start of metformin. (4) BL LE Discomfort, Calf Pain: From description sounds more like muscle cramping, possibly associated with electrolyte disturbances however to be cautious given high risk will obtain bilateral lower extremity DVT ultrasound. (5) Hypertension: Continue home regimen including Toprol with hold parameters given recent poor intake and dehydration. Holding spironolactone, bumex, ACEI given JERRY. PRN hydralazine. (6) Hyperlipidemia: Not on statin therapy. (7) Chronic AF: s/p pacemaker/AICD. Not anticoagulation candidate given metastatic CA to brain, continued on BB, digoxin and amiodarone. (8) Chronic Thrombocytopenia: Admission plts 93, 2 Plts 77, trend, defer chemoprophylaxis. (9) GERD: PPI. (10) DVT Prophylaxis: SCDs, defer chemoprophylaxis secondary to metastatic CA to the brain and thrombocytopenia. Code Visit Inpatient E&M: 74516 Subs Hosp L2
[2017-07-11 08:31] LABS: Magnesium 2.4 mg/dL (1.6-2.6); Phosphorus 2.8 mg/dL (2.5-4.9)
[2017-07-11] MEDS: Digoxin 125 MCG Tablet PO (08:55)
--- NOTE | 2017-07-11 08:57 | NURSING ---
Addendum entered by Angeles Toledo 07/11/17 11:11: After [facility] was called and notified of consult, this RN went into patient room and spoke with both patient and his about same. Notified that Dr. Ag is the physician for BOTH hospice and palliative care. Educated and patient not to panic or be angry if the name hospice is used- because they are going to come in anticipation of palliative care but that they will discuss options. Notified both that this does not mean he is signed up for anything, but rather will give them information and possibly help with any symptoms that patient may be experiencing. Understanding verbalized. Original Note: Addendum entered by Angeles Toledo 07/11/17 09:07: Hospice called at this time- spoke with nurse Magui for Dr. Ag. Notified of consult and answered questions as able. Requested to fax H&P, face sheet, etc. at this time and that they would be in contact with patient after information received. Mc, pocket secretary assembler notified of same and preparing to send information per request. Original Note: This RN called [facility] and notified nurse Dora for Dr. Church that consult was placed. Dora states that Dr. Winston is propagation worker all week and will be the one to come in.
[2017-07-11] MEDS: levETIRAcetam 1,000 MG Tablet 1000 MG PO ×2 (08:58→22:12)
[2017-07-11] MEDS: Pantoprazole Sodium 40 MG Tablet PO (08:58)
[2017-07-11] MEDS: Glucerna Shake 120 ML LIQUID PO ×4 (09:16→22:18)
--- NOTE | 2017-07-11 09:36 | PCA ---
Addendum entered by Mc Walton 07/11/17 10:13: Also faxed pt demographics and copies of insurance cards. Original Note: Fax sent to [facility] with pt H&P, labs and BRANDY
[2017-07-11] MEDS: NYSTATIN 500,000 UNIT/5 ML UDC 500000 UNIT PO ×4 (09:38→22:14)
--- NOTE | 2017-07-11 09:39 | VDLE_ITS ---
Reason For Study: pain RIGHT LEFT GSV is normal. GSV is normal. CFV is compressible, spontaneous, phasic, CFV is compressible, spontaneous, phasic, competent and demonstrates normal competent, and demonstrates normal augmentation. augmentation. FV is compressible, spontaneous, phasic, Prox and mid FV are compressible with normal competent and demonstrates normal venous flow patterns. Distal FV is partially augmentation. compressible. POP V is compressible, spontaneous, phasic, POP V, T/P Trunk, PTV, Peroneal V, and Soleus competent and demonstrates normal V are dilated and noncompressible. augmentation. Incidental finding of no flow in the SFA or T/P Trunk is compressible. Pop Artery. Flow could be demonstrated more PTV is compressible. distally in the RF ENGINEER and Peroneal Artery. RT PerV is compressible. Incidental finding of no flow in the SFA or Pop Artery. Flow could be demonstrated more distally in the RF ENGINEER and Peroneal Artery. Procedure Exam performed portable in patient room. The exam was diagnostic. A preliminary report was called and/or faxed to the pt's RN. Interpretation Summary There is no evidence of right lower extremity deep vein thrombosis. Right greater saphenous vein appears patent and compressible segmentally. Acute deep venous thrombosis left distal femoral, popliteal, tibioperoneal trunk, posterior tibial, peroneal and soleus veins. Patent and compressible left great saphenous vein. Incidental finding of no arterial flow in the right superficial femoral artery and politeal as well as the left superficial femoral and popliteal arteries. Ordering Physician: Loni Kemp Performed By: Andrew Hernandez RVT
--- NOTE | 2017-07-11 10:34 | NURSING ---
Addendum entered by Angeles Toledo 07/11/17 10:57: Diabetic book given per nursing measure and many packets printed out from [facility] and given to patient and his . Cardiothoracic Surgeon on unit at this time and preparing to see patient and . Original Note: very concerned about patient's new diet order for ADA diet. States she doesn't understand and doesn't know what to feed patient. Notes that she does not believe patient's calories should be controlled and that he needs them. This RN provided verbal education and handouts. Cardiothoracic Surgeon called and notified of patient and 's concern regarding diet and need for education. Same to be provided.
--- NOTE | 2017-07-11 11:09 | CASEMGMT ---
Social Work Assessment Referral Date: 07/11/2017 Date of Assessment: 07/11/2017 Reason for Consult: Terminal Lung Cancer with Mets to the Brain Informant: Self-Referral Personal Status: Mentation: Pt alert and oriented x4. Pt presents with flat affect as evidenced by no change in expression or tone of voice throughout assessment. Pt responds appropriately and no slurred speech noted. Present during assessment: Pt's , Azra, present during assessment and assist with questions as needed. Pt able to complete independently. Living Arrangements: Pt lives with his and reports access issues in the last month. There are 3 entry steps and the pt fell 2 days ago. Employment: Was employed FT at [employer]. Financially they report to be stable at this time. Family Dynamics/Relationships: Report to have strong relationships with family and friends that live locally. Supports: Pt reports his , Azra, as his primary support and they also states that the pt has siblings that live locally and assist as needed. Azra states that the pt's brother will help her to take him home to avoid the chance of him falling on the steps again. ADL's: Pt states that he is independent with his care. , Azra, corrects and states that she makes meals, and assists him with upper and lower body dressing. Transports him helps as needed with any other IADLs and ADLs. Pt expresses agreement by nodding his head yes. Pt was diagnosed in the beginning of June. Reports that he noticed himself getting significantly weaker around [place] time when he was shopping. [place] himself becoming fatigued more quickly. DME consists was a walker (which pt uses at baseline), shower chair, toilet riser, wheelchair and the are hoping to have a ramp placed for entry into the home for ease of pt. PCP is Dr. Rebolledo, Oncologist is Dr. Church, and Pharmacy utilized is [facility]. Substance Abuse Hx: Pt denies substance abuse hx, but noted on chart review that he had reported a hx of tobacco use. Mental Health Hx: Diagnoses: Denies, also denies symptoms of anxiety or depression. Stressors: Sister on life support, Cancer diagnosis SI or HI? Denies Treatment? No Pt denies any mental health diagnoses. Also denies symptoms of depression or anxiety. Provide support to pt and and discuss the adjustments in roles and life they have had to make in a short time frame. Both are open to discussing, but maintain composure and appear reserved as evidenced by little emotional reaction to conversation. Pt and are very futuristic and optimistic in their views and treatment goals at this time. Offer information on counseling services in the area at this time and pt declines. Intervention: Assessment completed to identify needs. Review pt's DME and at this time pt and are declining additional DME needs. Feel they may require a ramp, but that the pt's brother would help them have this placed. Review mental health symptoms and adjustment to a new diagnosis. Pt and discuss, but feel they are managing and decline additional counseling services/resources. Discuss Palliative Care Services with the pt and his . initially states absolutely not. They are not interested in hospice and want to remain optimistic. After further education they are agreeable to education on palliative care services to see if this would be appropriate for their needs. While in room Julia, from [facility], called and did setup a meeting with the pt this date between 11:30-12:00. Provided pt and his with 's contact card if additional needs arise throughout this hospitalization. Plan: Home; additional services TBD. AKI Braswell
--- NOTE | 2017-07-11 11:17 | NURSING ---
Patient working with therapy, in his room, at this time- getting patient up into recliner.
--- NOTE | 2017-07-11 13:07 | NURSING ---
venous duplex in progress
[2017-07-11 14:26] LABS: Bedside Glucose 226 mg/dL (70-110)
--- NOTE | 2017-07-11 14:45 | CHAPLAIN ---
Type of Pastoral Visit _x__ Initial Visit ___ Follow-up Visit ___ On-call Visit ___ General Patient Visit ___ Spiritual Assessment ___ Family Conference ___ Bereavement ___ Rapid Response ___ Code Blue ___ Other (describe below) Pastoral Care Referral From _x__ Patient ___ Family ___ Nurse ___ Physician ___ Director Of Loss Prevention ___ Grading Machine Feeder ___ Other (describe below) Sacrament/Intervention _x__ Active listening ___ Anointing ___ Uatsdin ___ Bereavement ___ Communion _x__ Jojo exploration ___ _x__ Life review _x__ Prayer ___ Reconciliation ___ Sacrament of Sick _x__ Supportive presence ___ Wedding ___ Other (describe below) Pastoral Comments dealing with stage 4 cancer; spouse is present at this time; spouse says 'we want to stay hopeful and positive'; family is said to be involved and actively supportive; prayer and visits welcomed
[2017-07-11 16:06] LABS: Bedside Glucose 240 mg/dL (70-110)
--- NOTE | 2017-07-11 16:13 | CASEMGMT ---
Social Work Note Note from Julia with [facility] stating that the pt declined services at this time, but they do have her number if they change their mind. Will continue to follow and assist with discharge planning. Kelly Bennett, WATER RESOURCES PROGRAM DIRECTOR WEATHERSEAL TECHNICIAN
--- NOTE | 2017-07-11 18:19 | NURSING ---
Patient had venous duplex today on bilateral lower ext. Results reviewed and Dr. Kemp notified of acute deep venous thrombosis left lower extremity as well as incidental finding of no arterial flow in the right and left superficial femoral and popliteal arteries. Dr. Kemp called unit and states that she plans to place patient on therapeutic lovenox, despite low platelets. States that platelets would be monitored and if decrease then Dr. Bang would be consulted to place a filter. This RN entered room in anticipation of giving Lovenox and began explaining why lovenox was ordered. Dr. Kemp arrived at that time and added mush more information to the conversation, covering findings and her thoughts. Patient's , Azra, states that he use to be on blood thinners in the past due to patient's A.fib, but that he was taken off due to lesions on his brain and due to high risk of bleeding. Azra states that if Lovenox was to be restarted, Dr. Leach and Dr. Church would need to be consulted. Dr. Kemp states that she will call Dr. Church and discuss case. Dr. Kemp was speaking to patient and asked if he has a living will or if he would want to have breathing tube or paddles/ cpr. Azra stood up and stormed out of room and was sobbing in waiting area. Dr. Kemp continued speaking with patient, again stressing we would like to know his wishes, not that we are expecting patient to have any issues here. This RN followed Azra into waiting room and provided emotional support. Notified Azra that this RN asks every patient if they have a living will, power of securities attorney etc. Azra argued that we do not ask every patient- this RN confirmed that we even ask 20 year olds. Educated Azra that we ask because we want to make sure we do right by the patient and their family. We do not expect bad things to happen but that we want to be knowledgeable if something would. Azra states the more that we talk about end of life care the more hope we take away from her . Recommended that Azra have living will, etc completed along with so that both of their wishes could be completed together and then would not feel as depressed as if she is planning for him to pass. Also notified that when he would be asked- all they would have to say was yes and make sure they provide a copy. Azra verbalized understanding and apologized for the way she behaved. Then azra returned to patient's room After speaking with Dr. Church, Dr. Kemp returned to room and states that the current plan is to continue with IVF through the night and attempt to have better kidney function. States that if they are better we will get a CT scan of the head with contrast, which was planned initially in Dr. Church's office and was cancelled due to elevated labs related to kidney as well as elevated glucose. With the results of the CT scan Dr. Kemp states she would sit down with patient and and discuss findings and plan from that point. If Lovenox cannot be given safely- then Dr. Bang would be notified of need for filter. Dr. Kemp provided emotional support to patient and and apologized again for upsetting Azra. Azra was receptive. This RN stayed in patient's room attempting to answer questions. Azra asked what risks are of having filter with Dr. Bang. Notified her that Dr. Bang would speak with them if that is the route that is taken. Educated about different blood thinners- in response to Azra's questions. Educated both about insulin pens and demonstrated how to administer insulin via pen step by step.
[2017-07-11] MEDS: Amiodarone 200 MG Tablet 400 MG PO (22:11)
[2017-07-11] MEDS: Metoprolol(XL)Succ 50 MG Tablet PO (22:14)
[2017-07-11 22:31] LABS: Bedside Glucose 232 mg/dL (70-110)
[2017-07-12] VITALS (7 sets, daily range): BP systolic 122–144; BP diastolic 83–96; PULSE 61–72; RESP 16–18; TEMP 36.3–36.8; O2SAT 98–100
[2017-07-12] MEDS: 0.9% Normal Saline 1,000 ML 125 ML IV ×2 (06:34→17:01)
[2017-07-12 06:46] LABS: Bedside Glucose 170 mg/dL (70-110)
[2017-07-12 07:37] LABS: Absolute Lymphocyte Count 0.25 X10^3/ul (0.83-4.51); Absolute Neutrophil Count 8.1 X10^3/uL (2.0-7.7); Hematocrit 42.3 % (40-54); Hemoglobin 14.5 g/dl (13.0-16.5); Lymphocyte # 0.25 X10^3/ul (4.0); Lymphocyte % 2.9 % (19-41); Mean Corp Hgb Conc 34.3 g/gl (32-36); Mean Corpuscular Hgb 32.2 pg (27.0-32.0); Mean Corpuscular Volume 93.8 fL (80-94); Mean Platelet Vol. 9.7 fl (6.2-12.0); Monocyte# 0.26 X10^3/uL; Neutrophil # 8.14 X10^3/uL (2.7-7.7); Neutrophil % 93.6 % (47-70); Platelet Count 72 K/mm3 (150-450); RBC Distribution Width CV 14.6 % (11.6-14.6); RBC Distribution Width SD 48.3 fl (35.1-43.9); Red Blood Count 4.51 M/mm3 (4.6-6.2); White Blood Count 8.7 K/mm3 (4.4-11.0)
[2017-07-12 07:47] LABS: Differential Indicated SCAN CRITERIA MET; POSITIVE COUNT NO; POSITIVE DIFFERENTIAL YES; POSITIVE MORPHOLOGY NO
[2017-07-12 08:03] LABS: Anion Gap 8 (5-15); BUN 52 mg/dL (7-18); BUN/Creat Ratio 36.6 RATIO (10-20); Calcium,Total 7.7 mg/dL (8.5-10.1); Chloride 105 mmol/L (98-107); Creatinine, Serum 1.42 mg/dL (0.70-1.30); EST Glomerular Filtration Rate 55 mL/min (>60); Est Glom Filt Rate - Afr Amer 66 mL/min (>60); Glucose 161 mg/dL (70-110); Potassium 4.5 mmol/L (3.5-5.1); Sodium Level 136 mmol/L (136-145)
--- NOTE | 2017-07-12 08:42 | CT_ITS ---
STUDY: CT BRAIN WITH AND WITHOUT CONTRAST REASON FOR EXAM: Male, 57 years old. History of metastatic lung carcinoma and brain metastasis. RADIATION DOSAGE (If Supplied By Facility): CTDIvol = ( 44.99 ) mGy, DLP = ( 1715.95 ) mGycm TECHNIQUE: Transaxial CT imaging of the brain was performed pre and post contrast administration. The examination was performed with intravenous administration of 50 ml of Isovue 370 contrast material. Individualized dose optimization techniques were used for this CT. COMPARISON: Comparison is made with prior examination dated June 11, 2017. FINDINGS: Normal soft tissue structures. Normal calvarium. The previously seen enhancing nodule in the left cerebellum is not well seen at this time. Stable 2.8 cm x 3.2 cm rim enhancing mass in the posterior right parietal occipital lobe. The surrounding edema has decreased as compared to prior study. Residual 1.3 cm rim-enhancing nodule in the posterior aspect of the right occipital lobe. This has decreased in size as compared to prior study. The amount of surrounding edema as decreased as well. Stable 1.7 cm enhancing nodule in the posterior left parieto-occipital lobe with surrounding edema. This is essentially unchanged. Stable 1.7 cm rim-enhancing nodule in the medial aspect of the left parietal lobe abutting the falx. Normal white matter tracts of the cerebral hemispheres. Normal basal ganglia and thalami. Stable dense calcification in the left side of the brainstem most likely representing a vascular malformation. There is mild cerebellar atrophy. There is no intracranial hemorrhage. There are no findings of an acute ischemic infarction. Normal visualized paranasal sinuses. CT/Brain/Head W/WO Contrast IMPRESSION: Multiple bilateral intracerebral metastasis with mild edema as described. The amount of edema as decreased as compared to prior study. The abnormal enhancing nodule in the left cerebellum is not seen at this time. Electronically Signed: Macario Mirza MD at 9:33 EST Tel [phone], Service support ,
--- NOTE | 2017-07-12 09:09 | CON.PCM_ITS ---
Problem List (1) Lung cancer metastatic to brain Status: Chronic (2) Dvt femoral (deep venous thrombosis) Status: Acute - Consult Date of Consult: 07/12/[address] Kemp patient with metastatic non-small cell lung cancer presenting with brain metastasis and now has acute DVT. Patient also has history of chronic atrial fibrillation & thrombocytopenia. My final recommendation will be communicated to Dr. Kemp and by electronic medical records. - Reason for Consult Small cell lung cancer with brain metastasis s/p radiation therapy Acute DVT Thrombocytopenia Acute renal injury History of Present Illness Date of Admission: 07/10/17 The patient is a 57 year old M who presented to the ER from Dr. Church's office for hyperglycemia and abnormal kidney function. 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 He had previous chemotherapy treatment as well as gamma knife therapy up in [place] last year. The patient was started on whole brain radiation this past month and dexamethasone. He was previously on Coumadin for atrial fibrillation. But because of possibility of bleeding within the brain metastasis, Coumadin was discontinued last year. Otherwise, patient's lung cancer is in remission, and had not had chemotherapy since last November. The brain cancer was found after he developed weakness of his right hand and leg last year when he developed brain metastasis. This has significantly worsened in the past several days, with him being more weak and falling at home. Dr. Church has increased his home bumex dose recently because of increased swelling of his lower extremity. He also has not had a history of diabetes, but has recently developed uncontrolled blood sugar on dexamethasone. Since Saturday, his creatinine came down from 2.0 to 1.4 with hydration. His blood sugar is still not adequately controlled at this time and dexamethasone 4mg 3 times daily. Doppler study confirmed acute DVT, but he denied pain in his leg. He also has no chest pain, cough, or shortness of breath. Past Medical History Past Medical History (Chronic Problems): Chronic Problems Hypertension (Chronic) Afib (Chronic) Pacemaker (Chronic) Tobacco dependence (Chronic) Cardiomyopathy (Chronic) Lung cancer metastatic to brain (Chronic) Seizure (Chronic) Debility (Chronic) Thrombocytopenia (Chronic) Allergies No Known Allergies Allergy (Verified 06/11/17 14:25) Home Medications: Ambulatory Orders Medication Instructions Recorded Amiodarone HCl 400 mg PO QHS 04/19/16 Lisinopril [Zestril] 10 mg PO DAILY 04/19/16 Albuterol IH (ProAir) [Proair Hfa 1 - 2 puff INHALATION Q4H PRN PRN 06/11/17 (SP)Vent Pts] Bumetanide [Bumex] 2 mg PO DAILY 06/11/17 Digoxin 125 mcg PO SUMOWETHFR 06/11/17 Metoprolol Succinate 50 mg PO QHS 06/11/17 Spironolactone [Aldactone] 25 mg PO DAILY 06/11/17 Acetaminophen [Tylenol] 1 - 2 tab PO Q4H PRN PRN 07/10/17 Dexamethasone 4 mg PO Q8H 07/10/17 Levetiracetam [Keppra] 1,000 mg PO BID 07/10/17 Nystatin 5 ml PO 4X/DAY 07/10/17 Pantoprazole Sodium [Protonix] 40 mg PO DAILY 07/10/17 Surgical History: pacemaker implantation Psychiatric History: No pertinent psych hx Lives: Spouse/ Significant Other Smoking Status: Light Smoker (<10/day) Alcohol: None Drugs: None - *Family History Sibling History Items: Heart Disease Review of Systems Constitutional: Denies: Chills, Fever, Weight Change HEENT: Denies: Head Aches, Sinus Congestion, Sinus Drainage Cardiovascular: Denies: Chest Pain, Palpitations Respiratory: Denies: Cough, Shortness of breath at rest, Sputum production Gastrointestinal: Denies: Abdominal Pain, Nausea, Vomiting Genitourinary: Denies: Dysuria Musculoskeletal: Denies: Joint Pain, Joint Tenderness Skin: Denies: Rash, Wounds Neurological: Reports: - - right sided weakness. Denies: Focal weakness, Numbness, Tingling Psychiatric: Denies: Anxiety, Depression, Homicidal Ideations, Suicidal Ideations Hematologic/ Lymphatic: Denies: Easy Bruising, Easy Bleeding JERRY (acute kidney injury) (Acute) Hyperglycemia (Acute) - Physical Exam Vital Signs Temp Pulse Resp BP Pulse Ox 07/12/17 08:52 97.3 F L 61 16 136/92 H 98 07/12/17 04:10 98.2 F 67 18 128/83 H 98 07/11/17 22:14 62 07/11/17 22:10 98.6 F 62 18 112/70 99 Oxygen Delivery Method Room Air Weight: 104.7 kg Body Mass Index (BMI) 28.8 - Physical Exam General: Alert, Oriented x3, Cooperative HEENT: Atraumatic, PERRLA, EOMI, Normocephalic Neck: Supple, No JVD, Negative Carotid Bruits Lungs: Diminished, - - Small area of stony dullness at right 10th intercostal space posteriorly Cardiovascular: Regular rate, Regular Rhythm, Normal S1, Normal S2, No murmurs Abdomen: Bowel Sounds Present, Soft, Non Tender, Non-Distended Extremities: No edema, Capillary Refill Less than 3 Seconds Skin: - - Bruise present all over, predominantly in upper extremities. Multiples skin and subcutaneous nodules present on the back, patient states present since teenage and benign. Musculoskeletal: No Tenderness to Palpation of Joints or Extremities, Arthritic Changes, Muscle Wasting Neurological: Cranial nerves II-XII grossly intact Psych/Mental Status: Normal Affect, Appropriate CXR: Right hilum remaining prominent after a substantial improvement in the right lower lung infiltrates/atelectasis and pleural effusion. Left lung remains expanded and clear. Continued cardiomegaly. Right atrial and ventricular ICD unchanged. Assessment/Plan Active and Suspected Problems JERRY (acute kidney injury) (Acute) Hyperglycemia (Acute) 1. JERRY - BUN 70 with creatinine 2.02. - Slowly improving with IV hydration and treatment of hyperglycemia Plan: - Continue IV fluid and monitor renal function - OK, proceed with CT brain with contrast this morning. 2. SC lung cancer with metastatic disease to the brain - Neurologically stable. Plan: - If CT brain shows no evidence of bleeding and decreased cerebral edema. - Then start IV heparin and decrease & taper dexamethasone. - If no intracranial bleeding and neurologically stable for the next 24 hours and stable renal function and improving platelet count; then convert to Lovenox and Coumadin for outpatient management of DVT and atrial fibrillation. - Otherwise, patient may need a temporary IVC filter placement if anticoagulation is contraindicated. 3. 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 Plan: -Start weight based levemir & continue sliding scale insulin. -Dietary consult 4. Debility - falls at home recently 2/2 R sided weakness secondary to brain metastasis. Plan: - Consult PTOT. 5. Thrombocytopenia - unclear etiology. Probably secondary to radiation therapy & acute thrombus Plan: - Monitor platelet count daily cc: Dr. Rene Church, Dr. Loni Kemp
[2017-07-12] MEDS: levETIRAcetam 1,000 MG Tablet 1000 MG PO ×2 (09:16→21:23)
[2017-07-12] MEDS: Digoxin 125 MCG Tablet PO (09:16)
[2017-07-12] MEDS: Pantoprazole Sodium 40 MG Tablet PO (09:18)
--- NOTE | 2017-07-12 10:47 | PCM.PN.HOSP ---
Patient Problems: Active and Suspected Problems JERRY (acute kidney injury) (Acute) Dvt femoral (deep venous thrombosis) (Acute) Subjective: Patient with no acute events overnight per self and per nursing report. Patient notes ongoing stable weakness to his extremities and unchanged mild discomfort primarily with palpation to the left lower extremity. Discussed CT head this morning at length and follow-up discussions with him oncology with plan for initiation of heparin drip and de-escalation with weaning of Decadron to which patient and are amenable. Patient denies fevers, chills, nausea, emesis, abdominal pain, chest pain or dyspnea. Objective: Physical Examination: General: awake, alert, oriented x 3 and cooperative, seated upright in bedside chair, NAD. Skin: normal color, turgor, no icterus, cyanosis except bilateral lower extremity small ecchymotic regions diffusely. HEENT: AT/NC, EOMI, PERRLA, MMM. Lungs: CTA bilaterally, moderate effort, mild decrease BL bases, no rales, ronchi or wheezing. Heart: Regular rate and rhythm; no gallop, rub audible. Abdomen: soft, NTTP, ND, normal BS. Extremities: no cyanosis, clubbing, BL mild ankle edema, continued TTP LLE. Neurological: patient awake, alert, oriented x 3; cognitive function intact; pupils equally reactive to light and accomodation; cranial nerves II-XII grossly normal, moving all 4 extremities but limited RU, RL and some LLE, strength R sided 3-4/5, LLE 4/5, sensation intact, equiv babinski, difficulty with FTN, HTS R sided secondary to weakness, strength remains similar, moderately to severely globally decreased. Psychiatric: affect appears normal, no acute evidence of depressive or anxiety feelings. Vitals/I&O's: Vital Signs Temp Pulse Resp BP Pulse Ox 97.3 F L 72 16 136/92 H 98 07/12/17 08:52 07/12/17 09:16 07/12/17 08:52 07/12/17 08:52 07/12/17 08:52 Oxygen Delivery Method Room Air Weight: 230 lb 13.184 oz Body Mass Index (BMI) 28.8 Intake and Output for Last 24 Hours 07/10/17 07/11/17 07/12/17 23:59 23:59 23:59 Intake Total 843 / 843 2654 / 2654 1990 Output Total 475 / 475 400 / 400 575 / 575 Balance 368 / 368 2254 / 2254 1416 / 1416 Laboratory Results 07/11/17 12:10: POC Glucose 226 H 07/11/17 15:50: POC Glucose 240 H 07/11/17 22:10: POC Glucose 232 H 07/12/17 06:28: POC Glucose 170 H 07/12/17 07:00: WBC 8.7, RBC 4.51 L, Hgb 14.5, Hct 42.3, MCV 93.8, MCH 32.2 H, MCHC 34.3, RDW 14.6, RDW Differential 48.3 H, Plt Count 72 L, MPV 9.7, Immature Gran % (Auto) 0.500, Neut % (Auto) 93.6 H, Lymph % (Auto) 2.9 L, [place] % (Auto) 3.0, Eos % (Auto) 0.0, Baso % (Auto) 0.0, Absolute Neuts (auto) 8.1 H, Absolute Lymphs (auto) 0.25 L, Total Counted Not Reportable, Differential Comment COMMENT 07/12/17 07:00: Sodium 136, Potassium 4.5, Chloride 105, Carbon Dioxide 23.0, Anion Gap 8, BUN 52 H, Creatinine 1.42 H, Estim Creat Clear Calc 68.60, Est GFR (MDRD) Af Amer 66, Est GFR (MDRD) Non-Af 55 L, BUN/Creatinine Ratio 36.6 H, Glucose 161 H, Calcium 7.7 L Current Medications Acetaminophen (Tylenol) 650 mg PO Q6H PRN PRN PRN Reason: Non-cardiac pain (mod-severe) Hydrocodone Bitart/Acetaminophen ([place] 5mg-325mg) 1 - 2 tablet PO Q6H PRN PRN PRN Reason: Moderate-severe pain Albuterol Sulfate (Ventolin Aerosols) 2.5 mg INHALATION Q2H PRN PRN PRN Reason: SOB &/OR WHEEZING Amiodarone HCl (Cordarone) 400 mg PO QHS [facility] Last Admin: 07/11/17 22:11 Dose: 400 mg Dexamethasone (Decadron) 4 mg PO TIDCM [facility] Last Admin: 07/12/17 09:16 Dose: 4 mg Dextrose (D50w Syringe) 0 gm IV X1 PRN; Protocol PRN Reason: Hypoglycemia Digoxin (Lanoxin) 125 mcg PO SUMOWETHFR [facility] Last Admin: 07/12/17 09:16 Dose: 125 mcg Glucagon () 1 mg IM .X1 PRN PRN Reason: Hypoglycemia Hydralazine HCl (Apresoline) 10 mg IV Q4H PRN PRN PRN Reason: SBP > 160 Sodium Chloride () 1,000 mls @ 125 mls/hr IV .Q8H [facility] Last Admin: 07/12/17 06:34 Dose: 125 mls/hr Insulin Aspart (Novolog Flexpen ([facility])) 0 units SC ACHS MIGUEL A PRN Reason: Protocol Last Admin: 07/12/17 06:34 Dose: 1 u Insulin Detemir (Levemir ([facility])) 30 units SC BID [facility] Last Admin: 07/12/17 09:18 Dose: 30 unit Levetiracetam (Keppra) 1,000 mg PO BID [facility] Last Admin: 07/12/17 09:16 Dose: 1,000 mg Metoprolol Succinate (Toprol Xl (Beta Karishma)) 50 mg PO QHS [facility] Last Admin: 07/11/17 22:14 Dose: 50 mg Morphine Sulfate (Morphine) 1 - 2 mg IV Q4H PRN PRN PRN Reason: PAIN Nutritional Formula (Lactose Free) (Glucerna Shake) 120 ml PO 4X/DAY [facility] Last Admin: 07/11/17 22:18 Dose: 120 ml Nystatin (Nystatin) 500,000 unit PO 4X/DAY [facility] Last Admin: 07/11/17 22:14 Dose: 500,000 unit Ondansetron HCl (Zofran) 8 mg PO Q8H PRN PRN PRN Reason: NAUSEA Ondansetron HCl (Zofran) 4 mg IV Q8H PRN PRN PRN Reason: NAUSEA/VOMITING Pantoprazole Sodium (Protonix) 40 mg PO DAILY [facility] Last Admin: 07/12/17 09:18 Dose: 40 mg Sodium Chloride () 5 - 30 ml IV UD PRN PRN Reason: SALINE FLUSH Temazepam (Restoril) 15 mg PO QHS PRN PRN PRN Reason: insomnia Assessment/Plan Active and Suspected Problems JERRY (acute kidney injury) (Acute) Dvt femoral (deep venous thrombosis) (Acute) The patient is a 57 y/o M w/ PMHx: HTN, HLD, Chronic Atrial Fibrillation, Cardiomyopathy, Seizure disorder, Chronic Thrombocytopenia, Stage IV Lung Cancer w/ metastatic disease to the brain w/ resulting initially R sided mild weakness following w/ Dr. Church with recent radiation treatments with planned gamma knife therapy if radiation successful and additional chemotherapy who now presents to the [facility] ED on 07/10/17 with worsened R sided weakness, recent falls, malaise, poor oral intake. (1) Acute kidney injury w/ Hyponatremia, Hypovolemic: Secondary to ? poor oral intake but from evaluation, does not appear to be an issue, unclear specific etiology, but improving. Admission Na 134 and BUN/Cr 70/2.02, prior baseline creatinine noted to be 1.2. Renal US not marked appearing. Will continue to hydrate, hold nephrotoxic medications and trend renal function. 07/11/17 BUN/Cr 60/1.68-->Improved, 07/12/17 BUN/Cr 52/1.42. PT, OT consulted for discharge planning w/ recommendation for further skilled therapy. (2) Acute LLE DVT, concurrent PAD likely responsible for BL LE, L>R Pain ongoing: Acute deep venous thrombosis left distal femoral, popliteal, tibioperoneal trunk, posterior tibial, peroneal and soleus veins. DVT US BL LE w/ also noted incidental finding of no arterial flow in the right superficial femoral artery and politeal as well as the left superficial femoral and popliteal arteries. Discussed patient w/ Dr. Church given vague unclear size of brain lesions and previously on anticoagulation but taken off secondary to these lesions. Held on start of anticoagulation, continued IVFs overnight, obtained CT with contrast this AM to review lesions w/ noted multiple bilateral intracerebral metastasis with mild edema, decreased as compared to prior study, abnormal enhancing nodule in the left cerebellum not seen. Discussed with Dr. Winston and reviewed imaging with him with clearance to initiate heparin drip now, if stable appearing and plts stable after 24 hours noted recommendation to start coumadin w/ eventual coumadin transition per his recommendation with also wean of decadron. If any issues or plts decrease markedly he recommended pursuing Dr. Bang consult for IVC Filter. (3) Stage IV Lung Cancer w/ metastatic disease w/ Seizure disorder w/ Thrombocytopenia: Noted metastatic disease to the brain w/ resulting initially R sided mild weakness following w/ Dr. Church with recent radiation treatments with planned gamma knife therapy if radiation successful and additional chemotherapy. Hem/Onc consulted, maintain on AEDs w/ keppra, PRN albuterol. As noted #2, will now start to wean decadron given recent CT findings, will transition to BID regimen and continue taper upon discharge. 07/11/17 Plts 77-->07/12/17 Plts 72, Dr. Church noted possible secondary to recent BM effects w/ recent radiation, expect improvement, but if ongoing decline w/ heparin drip start may require discontinuation w/ as noted IVCF placement. (4) Hyperglycemia w/ New Onset Diabetes mellitus type II: No DM history, ongoing chronic steroid usage w/ current wean plan per discussion w/ Hem/Onc, HgBA1c 7.3%, maintained on ADA diet w/ nutrition education, accu checks w/ ISS, levemir 20 u BID added. Upon discharge if renal function appropriate will necessitate start of metformin. (5) Hypertension: Continue home regimen including Toprol with hold parameters given recent poor intake and dehydration. Holding spironolactone, bumex, ACEI given JERRY especially given recent CT contrast. PRN hydralazine. (6) Hyperlipidemia: Not on statin therapy. (7) Chronic AF: s/p pacemaker/AICD. Not anticoagulation candidate given metastatic CA to brain, continued on BB, digoxin and amiodarone. (8) Chronic Thrombocytopenia: Admission plts 93, 07/11/17 Plts 77, trend, 07/12/16 Plts 72, monitor and if decrease notably with heparin drip would hold per discussion with Dr. Winston and pursue Dr. Bang consult for IVCF. (9) GERD: PPI. (10) DVT Prophylaxis: SCDs, heparin drip as noted with continued close monitoring. Code Visit Inpatient E&M: 09984 Subs Hosp L3
[2017-07-12] MEDS: Glucerna Shake 120 ML LIQUID PO ×3 (10:48→21:26)
--- NOTE | 2017-07-12 10:57 | PN_ITS ---
Patient Problems: Active and Suspected Problems JERRY (acute kidney injury) (Acute) Dvt femoral (deep venous thrombosis) (Acute) Subjective: Patient with no acute events overnight per self and per nursing report. Patient notes ongoing stable weakness to his extremities and unchanged mild discomfort primarily with palpation to the left lower extremity. Discussed CT head this morning at length and follow-up discussions with him oncology with plan for initiation of heparin drip and de-escalation with weaning of Decadron to which patient and are amenable. Patient denies fevers, chills, nausea, emesis, abdominal pain, chest pain or dyspnea. Objective: Physical Examination: General: awake, alert, oriented x 3 and cooperative, seated upright in bedside chair, NAD. Skin: normal color, turgor, no icterus, cyanosis except bilateral lower extremity small ecchymotic regions diffusely. HEENT: AT/NC, EOMI, PERRLA, MMM. Lungs: CTA bilaterally, moderate effort, mild decrease BL bases, no rales, ronchi or wheezing. Heart: Regular rate and rhythm; no gallop, rub audible. Abdomen: soft, NTTP, ND, normal BS. Extremities: no cyanosis, clubbing, BL mild ankle edema, continued TTP LLE. Neurological: patient awake, alert, oriented x 3; cognitive function intact; pupils equally reactive to light and accomodation; cranial nerves II-XII grossly normal, moving all 4 extremities but limited RU, RL and some LLE, strength R sided 3-4/5, LLE 4/5, sensation intact, equiv babinski, difficulty with FTN, HTS R sided secondary to weakness, strength remains similar, moderately to severely globally decreased. Psychiatric: affect appears normal, no acute evidence of depressive or anxiety feelings. Vitals/I&O's: Vital Signs Temp Pulse Resp BP Pulse Ox 97.3 F L 72 16 136/92 H 98 07/12/17 08:52 07/12/17 09:16 07/12/17 08:52 07/12/17 08:52 07/12/17 08:52 Oxygen Delivery Method Room Air Weight: 230 lb 13.184 oz Body Mass Index (BMI) 28.8 Intake and Output for Last 24 Hours 07/10/17 07/11/17 07/12/17 23:59 23:59 23:59 Intake Total 843 / 843 2654 / 2654 1990 Output Total 475 / 475 400 / 400 575 / 575 Balance 368 / 368 2254 / 2254 1416 / 1416 Laboratory Results 07/11/17 12:10: POC Glucose 226 H 07/11/17 15:50: POC Glucose 240 H 07/11/17 22:10: POC Glucose 232 H 07/12/17 06:28: POC Glucose 170 H 07/12/17 07:00: WBC 8.7, RBC 4.51 L, Hgb 14.5, Hct 42.3, MCV 93.8, MCH 32.2 H, MCHC 34.3, RDW 14.6, RDW Differential 48.3 H, Plt Count 72 L, MPV 9.7, Immature Gran % (Auto) 0.500, Neut % (Auto) 93.6 H, Lymph % (Auto) 2.9 L, [place] % (Auto) 3.0, Eos % (Auto) 0.0, Baso % (Auto) 0.0, Absolute Neuts (auto) 8.1 H, Absolute Lymphs (auto) 0.25 L, Total Counted Not Reportable, Differential Comment COMMENT 07/12/17 07:00: Sodium 136, Potassium 4.5, Chloride 105, Carbon Dioxide 23.0, Anion Gap 8, BUN 52 H, Creatinine 1.42 H, Estim Creat Clear Calc 68.60, Est GFR (MDRD) Af Amer 66, Est GFR (MDRD) Non-Af 55 L, BUN/Creatinine Ratio 36.6 H, Glucose 161 H, Calcium 7.7 L Current Medications Acetaminophen (Tylenol) 650 mg PO Q6H PRN PRN PRN Reason: Non-cardiac pain (mod-severe) Hydrocodone Bitart/Acetaminophen ([place]o 5mg-325mg) 1 - 2 tablet PO Q6H PRN PRN PRN Reason: Moderate-severe pain Albuterol Sulfate (Ventolin Aerosols) 2.5 mg INHALATION Q2H PRN PRN PRN Reason: SOB &/OR WHEEZING Amiodarone HCl (Cordarone) 400 mg PO QHS [facility] Last Admin: 07/11/17 22:11 Dose: 400 mg Dexamethasone (Decadron) 4 mg PO TIDCM [facility] Last Admin: 07/12/17 09:16 Dose: 4 mg Dextrose (D50w Syringe) 0 gm IV X1 PRN; Protocol PRN Reason: Hypoglycemia Digoxin (Lanoxin) 125 mcg PO SUMOWETHFR [facility] Last Admin: 07/12/17 09:16 Dose: 125 mcg Glucagon () 1 mg IM .X1 PRN PRN Reason: Hypoglycemia Hydralazine HCl (Apresoline) 10 mg IV Q4H PRN PRN PRN Reason: SBP > 160 Sodium Chloride () 1,000 mls @ 125 mls/hr IV .Q8H [facility] Last Admin: 07/12/17 06:34 Dose: 125 mls/hr Insulin Aspart (Novolog Flexpen ([facility])) 0 units SC ACHS MIGUEL A PRN Reason: Protocol Last Admin: 07/12/17 06:34 Dose: 1 u Insulin Detemir (Levemir ([facility])) 30 units SC BID [facility] Last Admin: 07/12/17 09:18 Dose: 30 unit Levetiracetam (Keppra) 1,000 mg PO BID [facility] Last Admin: 07/12/17 09:16 Dose: 1,000 mg Metoprolol Succinate (Toprol Xl (Beta Karishma)) 50 mg PO QHS [facility] Last Admin: 07/11/17 22:14 Dose: 50 mg Morphine Sulfate (Morphine) 1 - 2 mg IV Q4H PRN PRN PRN Reason: PAIN Nutritional Formula (Lactose Free) (Glucerna Shake) 120 ml PO 4X/DAY [facility] Last Admin: 07/11/17 22:18 Dose: 120 ml Nystatin (Nystatin) 500,000 unit PO 4X/DAY [facility] Last Admin: 07/11/17 22:14 Dose: 500,000 unit Ondansetron HCl (Zofran) 8 mg PO Q8H PRN PRN PRN Reason: NAUSEA Ondansetron HCl (Zofran) 4 mg IV Q8H PRN PRN PRN Reason: NAUSEA/VOMITING Pantoprazole Sodium (Protonix) 40 mg PO DAILY [facility] Last Admin: 07/12/17 09:18 Dose: 40 mg Sodium Chloride () 5 - 30 ml IV UD PRN PRN Reason: SALINE FLUSH Temazepam (Restoril) 15 mg PO QHS PRN PRN PRN Reason: insomnia Assessment/Plan Active and Suspected Problems JERRY (acute kidney injury) (Acute) Dvt femoral (deep venous thrombosis) (Acute) The patient is a 57 y/o M w/ PMHx: HTN, HLD, Chronic Atrial Fibrillation, Cardiomyopathy, Seizure disorder, Chronic Thrombocytopenia, Stage IV Lung Cancer w/ metastatic disease to the brain w/ resulting initially R sided mild weakness following w/ Dr. Church with recent radiation treatments with planned gamma knife therapy if radiation successful and additional chemotherapy who now presents to the [facility] ED on 07/10/17 with worsened R sided weakness, recent falls, malaise, poor oral intake. (1) Acute kidney injury w/ Hyponatremia, Hypovolemic: Secondary to ? poor oral intake but from evaluation, does not appear to be an issue, unclear specific etiology, but improving. Admission Na 134 and BUN/Cr 70/2.02, prior baseline creatinine noted to be 1.2. Renal US not marked appearing. Will continue to hydrate, hold nephrotoxic medications and trend renal function. 07/11/17 BUN/Cr 60 /1.68-->Improved, 07/12/17 BUN/Cr 52/1.42. PT, OT consulted for discharge planning w/ recommendation for further skilled therapy. (2) Acute LLE DVT, concurrent PAD likely responsible for BL LE, L>R Pain ongoing : Acute deep venous thrombosis left distal femoral, popliteal, tibioperoneal trunk, posterior tibial, peroneal and soleus veins. DVT US BL LE w/ also noted incidental finding of no arterial flow in the right superficial femoral artery and politeal as well as the left superficial femoral and popliteal arteries. Discussed patient w/ Dr. Church given vague unclear size of brain lesions and previously on anticoagulation but taken off secondary to these lesions. Held on start of anticoagulation, continued IVFs overnight, obtained CT with contrast this AM to review lesions w/ noted multiple bilateral intracerebral metastasis with mild edema, decreased as compared to prior study, abnormal enhancing nodule in the left cerebellum not seen. Discussed with Dr. Winston and reviewed imaging with him with clearance to initiate heparin drip now, if stable appearing and plts stable after 24 hours noted recommendation to start coumadin w/ eventual coumadin transition per his recommendation with also wean of decadron. If any issues or plts decrease markedly he recommended pursuing Dr. Bang consult for IVC Filter. (3) Stage IV Lung Cancer w/ metastatic disease w/ Seizure disorder w/ Thrombocytopenia: Noted metastatic disease to the brain w/ resulting initially R sided mild weakness following w/ Dr. Church with recent radiation treatments with planned gamma knife therapy if radiation successful and additional chemotherapy. Hem/Onc consulted, maintain on AEDs w/ keppra, PRN albuterol. As noted #2, will now start to wean decadron given recent CT findings, will transition to BID regimen and continue taper upon discharge. 07/11/17 Plts 77-->07/12/17 Plts 72, Dr. Church noted possible secondary to recent BM effects w/ recent radiation, expect improvement, but if ongoing decline w/ heparin drip start may require discontinuation w/ as noted IVCF placement. (4) Hyperglycemia w/ New Onset Diabetes mellitus type II: No DM history, ongoing chronic steroid usage w/ current wean plan per discussion w/ Hem/Onc, HgBA1c 7.3%, maintained on ADA diet w/ nutrition education, accu checks w/ ISS, levemir 20 u BID added. Upon discharge if renal function appropriate will necessitate start of metformin. (5) Hypertension: Continue home regimen including Toprol with hold parameters given recent poor intake and dehydration. Holding spironolactone, bumex, ACEI given JERRY especially given recent CT contrast. PRN hydralazine. (6) Hyperlipidemia: Not on statin therapy. (7) Chronic AF: s/p pacemaker/AICD. Not anticoagulation candidate given metastatic CA to brain, continued on BB, digoxin and amiodarone. (8) Chronic Thrombocytopenia: Admission plts 93, 07/11/17 Plts 77, trend, 07/12/16 Plts 72, monitor and if decrease notably with heparin drip would hold per discussion with Dr. Winston and pursue Dr. Bang consult for IVCF. (9) GERD: PPI. (10) DVT Prophylaxis: SCDs, heparin drip as noted with continued close monitoring. Code Visit Inpatient E&M: 65888 Subs Hosp L3
[2017-07-12] MEDS: HEPARIN/D5w 25,000 UNITS 25,000 UNITS/250 ML IV.SOLN. 15 UNITS IV (12:01)
[2017-07-12 12:11] LABS: Bedside Glucose 172 mg/dL (70-110)
[2017-07-12] MEDS: NYSTATIN 500,000 UNIT/5 ML UDC 500000 UNIT PO ×3 (12:28→21:23)
[2017-07-12 14:44] LABS: International Normalized Ratio 1.4; Partial Thromboplast Time 26.9 Seconds (24.1-36.2); Prothrombin Time (Protime)PT. 16.2 SECONDS (11.7-14.9)
[2017-07-12 14:46] LABS: International Normalized Ratio 1.6; Partial Thromboplast Time > 250.0 Seconds (24.1-36.2); Prothrombin Time (Protime)PT. 18.6 SECONDS (11.7-14.9)
[2017-07-12 17:01] LABS: Bedside Glucose 242 mg/dL (70-110)
[2017-07-12 19:12] LABS: Partial Thromboplast Time > 250.0 Seconds (24.1-36.2)
[2017-07-12] MEDS: 0.9% NaCl Peripheral Flush Adult/Peds IV ×2 (21:21→23:31)
[2017-07-12] MEDS: Amiodarone 200 MG Tablet 400 MG PO (21:23)
[2017-07-12] MEDS: Metoprolol(XL)Succ 50 MG Tablet PO (21:23)
[2017-07-12 21:44] LABS: Partial Thromboplast Time 100.3 Seconds (24.1-36.2)
[2017-07-12 22:41] LABS: Bedside Glucose 186 mg/dL (70-110)
[2017-07-13 00:27] LABS: Partial Thromboplast Time 43.7 Seconds (24.1-36.2)
[2017-07-13] MEDS: 0.9% Normal Saline 1,000 ML 125 ML IV ×3 (01:28→17:22)
[2017-07-13 05:23] VITALS: BP 137/95; PULSE 60; RESP 18; TEMP 36.6; O2SAT 99
[2017-07-13] MEDS: 0.9% NaCl Peripheral Flush Adult/Peds IV ×2 (05:26→11:30)
[2017-07-13 05:48] LABS: Absolute Lymphocyte Count 0.27 X10^3/ul (0.83-4.51); Absolute Neutrophil Count 6.7 X10^3/uL (2.0-7.7); Basophil# 0.01 X10^3/uL; Basophil% 0.1 % (0-1); Differential Indicated SCAN CRITERIA MET; Hematocrit 40.7 % (40-54); Hemoglobin 14.5 g/dl (13.0-16.5); Lymphocyte # 0.27 X10^3/ul (4.0); Lymphocyte % 3.7 % (19-41); Mean Corp Hgb Conc 35.6 g/gl (32-36); Mean Corpuscular Volume 92.5 fL (80-94); Mean Platelet Vol. 9.6 fl (6.2-12.0); Monocyte# 0.22 X10^3/uL; Neutrophil # 6.72 X10^3/uL (2.7-7.7); Neutrophil % 92.6 % (47-70); POSITIVE COUNT NO; POSITIVE DIFFERENTIAL YES; POSITIVE MORPHOLOGY NO; Partial Thromboplast Time 56.4 Seconds (24.1-36.2); Platelet Count 70 K/mm3 (150-450); RBC Distribution Width CV 14.6 % (11.6-14.6); RBC Distribution Width SD 47.9 fl (35.1-43.9); White Blood Count 7.3 K/mm3 (4.4-11.0)
[2017-07-13 05:52] LABS: Anion Gap 9 (5-15); BUN 41 mg/dL (7-18); Calcium,Total 7.6 mg/dL (8.5-10.1); Chloride 105 mmol/L (98-107); Creatinine, Serum 1.14 mg/dL (0.70-1.30); EST Glomerular Filtration Rate 70 mL/min (>60); Est Glom Filt Rate - Afr Amer 85 mL/min (>60); Estimated Creatinine Clearance 85.45 ml/min; Glucose 113 mg/dL (74-106); Potassium 4.3 mmol/L (3.5-5.1); Sodium Level 138 mmol/L (136-145)
[2017-07-13 06:51] LABS: Bedside Glucose 125 mg/dL (70-110)
[2017-07-13 08:00] VITALS: BP 134/85; PULSE 67; RESP 16; TEMP 36.5; O2SAT 97
--- NOTE | 2017-07-13 09:24 | PCM.PN.HOSP ---
Patient Problems: Active and Suspected Problems JERRY (acute kidney injury) (Acute) Dvt femoral (deep venous thrombosis) (Acute) Subjective: Patient with no acute events overnight per self and per nursing report. Discussed again recent results of CT head and decision for initiation of heparin drip with no events overnight or any concerns of bleeding and currently appropriate PTT levels. Discussed decision to initiate Coumadin therapy in addition to continued heparin drip with close observation and following of platelets over the next 24 hours with plan for transition to therapeutic Lovenox and discharge if remains appropriate per discussion with Dr. Winston. Patient denies fevers, chills, nausea, emesis, abdominal pain, chest pain or dyspnea. Objective: Physical Examination: General: awake, alert, oriented x 3 and cooperative, seated upright in bed, NAD. Skin: normal color, turgor, no icterus, cyanosis except bilateral lower extremity small ecchymotic regions diffusely. HEENT: AT/NC, EOMI, PERRLA, MMM. Lungs: CTA bilaterally, moderate effort, mild decrease BL bases, no rales, ronchi or wheezing. Heart: Regular rate and rhythm; no gallop, rub audible. Abdomen: soft, NTTP, ND, normal BS. Extremities: no cyanosis, clubbing, BL mild ankle edema, continued TTP LLE. Neurological: patient awake, alert, oriented x 3; cognitive function intact; pupils equally reactive to light and accomodation; cranial nerves II-XII grossly normal, moving all 4 extremities but limited RU, RL and some LLE, strength R sided 3-4/5, LLE 4/5, sensation intact, strength remains similar to day prior, moderately to severely globally decreased. Psychiatric: affect appears normal, no acute evidence of depressive or anxiety feelings. Vitals/I&O's: Vital Signs Temp Pulse Resp BP Pulse Ox 97.7 F L 67 16 134/85 H 97 07/13/17 08:00 07/13/17 08:00 07/13/17 08:00 07/13/17 08:00 07/13/17 08:00 Oxygen Delivery Method Room Air Weight: 230 lb 13.184 oz Body Mass Index (BMI) 28.8 Intake and Output for Last 24 Hours 07/11/17 07/12/17 07/13/17 23:59 23:59 23:59 Intake Total 2654 / 2654 4092 / 4092 Output Total 400 / 400 1175 / 1175 Balance 2254 / 2254 2917 / 2917 Laboratory Results 07/12/17 11:37: POC Glucose 172 H 07/12/17 12:25: PT 16.2 H, INR 1.4, APTT 26.9 07/12/17 14:05: PT 18.6 H, INR 1.6, APTT > 250.0 H* 07/12/17 16:49: POC Glucose 242 H 07/12/17 18:29: APTT > 250.0 H* 07/12/17 20:25: APTT 100.3 H* 07/12/17 21:21: POC Glucose 186 H 07/12/17 23:30: APTT 43.7 H 07/13/17 05:18: WBC 7.3, RBC 4.40 L, Hgb 14.5, Hct 40.7, MCV 92.5, MCH 33.0 H, MCHC 35.6, RDW 14.6, RDW Differential 47.9 H, Plt Count 70 L, MPV 9.6, Immature Gran % (Auto) 0.600, Neut % (Auto) 92.6 H, Lymph % (Auto) 3.7 L, [place] % (Auto) 3.0, Eos % (Auto) 0.0, Baso % (Auto) 0.1, Absolute Neuts (auto) 6.7, Absolute Lymphs (auto) 0.27 L, Total Counted Not Reportable, Differential Comment 07/13/17 05:18: Sodium 138, Potassium 4.3, Chloride 105, Carbon Dioxide 24.0, Anion Gap 9, BUN 41 H, Creatinine 1.14, Estim Creat Clear Calc 85.45, Est GFR (MDRD) Af Amer 85, Est GFR (MDRD) Non-Af 70, BUN/Creatinine Ratio 36.0 H, Glucose 113 H, Calcium 7.6 L 07/13/17 05:18: APTT 56.4 H 07/13/17 06:48: POC Glucose 125 H Current Medications Acetaminophen (Tylenol) 650 mg PO Q6H PRN PRN PRN Reason: Non-cardiac pain (mod-severe) Hydrocodone Bitart/Acetaminophen (Early 5mg-325mg) 1 - 2 tablet PO Q6H PRN PRN PRN Reason: Moderate-severe pain Albuterol Sulfate (Ventolin Aerosols) 2.5 mg INHALATION Q2H PRN PRN PRN Reason: SOB &/OR WHEEZING Amiodarone HCl (Cordarone) 400 mg PO QHS [facility] Last Admin: 07/12/17 21:23 Dose: 400 mg [facility] Last Admin: 07/13/17 08:09 Dose: 4 mg Dextrose (D50w Syringe) 0 gm IV X1 PRN; Protocol PRN Reason: Hypoglycemia Digoxin (Lanoxin) 125 mcg PO SUMOWETHFR [facility] Last Admin: 07/12/17 09:16 Dose: 125 mcg Glucagon () 1 mg IM .X1 PRN PRN Reason: Hypoglycemia Heparin Sodium (Porcine) () 0 units IV UD PRN PRN Reason: Protocol Hydralazine HCl (Apresoline) 10 mg IV Q4H PRN PRN PRN Reason: SBP > 160 Sodium Chloride () 1,000 mls @ 125 mls/hr IV .Q8H [facility] Last Admin: 07/13/17 01:28 Dose: 125 mls/hr Heparin Sodium/Dextrose () 25,000 units in 250 mls @ 15 mls/hr IV .[id number] [facility]; As Directed PRN Reason: Protocol Last Admin: 07/12/17 12:01 Dose: 15 mls/hr Sodium Chloride () 250 mls @ 15 mls/hr IV .[id number] PRN PRN Reason: SALINE FLUSH Insulin Aspart (Novolog Flexpen ([facility])) 0 units SC ACHS [facility] PRN Reason: Protocol Last Admin: 07/13/17 06:49 Dose: Not Given Insulin Detemir (Levemir ([facility])) 30 units SC BID [facility] Last Admin: 07/12/17 21:23 Dose: 30 unit Levetiracetam (Keppra) 1,000 mg PO BID [facility] Last Admin: 07/12/17 21:23 Dose: 1,000 mg Metoprolol Succinate (Toprol Xl (Beta Karishma)) 50 mg PO QHS [facility] Last Admin: 07/12/17 21:23 Dose: 50 mg Morphine Sulfate (Morphine) 1 - 2 mg IV Q4H PRN PRN PRN Reason: PAIN Nutritional Formula (Lactose Free) (Glucerna Shake) 120 ml PO 4X/DAY MIGUEL A Last Admin: 07/12/17 21:26 Dose: 120 ml Nystatin (Nystatin) 500,000 unit PO 4X/DAY [facility] Last Admin: 07/12/17 21:23 Dose: 500,000 unit Ondansetron HCl (Zofran) 8 mg PO Q8H PRN PRN PRN Reason: NAUSEA Ondansetron HCl (Zofran) 4 mg IV Q8H PRN PRN PRN Reason: NAUSEA/VOMITING Pantoprazole Sodium (Protonix) 40 mg PO DAILY [facility] Last Admin: 07/12/17 09:18 Dose: 40 mg Sodium Chloride () 5 - 30 ml IV UD PRN PRN Reason: SALINE FLUSH Last Admin: 07/13/17 05:26 Dose: 30 ml Temazepam (Restoril) 15 mg PO QHS PRN PRN PRN Reason: insomnia Assessment/Plan Active and Suspected Problems JERRY (acute kidney injury) (Acute) Dvt femoral (deep venous thrombosis) (Acute) The patient is a 57 y/o M w/ PMHx: HTN, HLD, Chronic Atrial Fibrillation, Cardiomyopathy, Seizure disorder, Chronic Thrombocytopenia, Stage IV Lung Cancer w/ metastatic disease to the brain w/ resulting initially R sided mild weakness following w/ Dr. Church with recent radiation treatments with planned gamma knife therapy if radiation successful and additional chemotherapy who now presents to the [facility] ED on 07/10/17 with worsened R sided weakness, recent falls, malaise, poor oral intake. (1) Acute kidney injury w/ Hyponatremia, Hypovolemic: Secondary to ? poor oral intake but from evaluation, does not appear to be an issue, unclear specific etiology, but improving. Admission Na 134 and BUN/Cr 70/2.02, prior baseline creatinine noted to be 1.2. Renal US not marked appearing. Will continue to hydrate, hold nephrotoxic medications and trend renal function. 07/11/17 BUN/Cr 60/1.68-->Improved, 07/12/17 BUN/Cr 52/1.42-->07/13/17 BUN/Cr 41/1.14, resolved. Will plan to continue IVFs for an additional 24 hours given recent JERRY in the setting of IV contrast usage. PT, OT consulted for discharge planning w/ recommendation for further skilled therapy; however, patient and family declined with planned discharge to home with home health only once clinically appropriate. (2) Acute LLE DVT, concurrent PAD likely responsible for BL LE, L>R Pain ongoing: Acute deep venous thrombosis left distal femoral, popliteal, tibioperoneal trunk, posterior tibial, peroneal and soleus veins. DVT US BL LE w/ also noted incidental finding of no arterial flow in the right superficial femoral artery and politeal as well as the left superficial femoral and popliteal arteries. Discussed patient w/ Dr. Church given vague unclear size of brain lesions and previously on anticoagulation but taken off secondary to these lesions. Held on start of anticoagulation, continued IVFs overnight, obtained CT with contrast w/ noted multiple bilateral intracerebral metastasis with mild edema, decreased as compared to prior study, abnormal enhancing nodule in the left cerebellum not seen. Discussed with Dr. Winston and reviewed imaging with him with clearance to initiate heparin drip 07/12/17 afternoon with follow-up 07/13/17 CBC w/ plts 70, similar to prior with 07/13/17 evening start of coumadin with continued hepatin drip and repeat CBC in AM. If plts remain stable and no concerning neurological changes then would plan transition to lovenox with coumadin bridge fro discharge. If any issues or plts decrease markedly he recommended pursuing Dr. Bang consult for IVC Filter. (3) Stage IV Lung Cancer w/ metastatic disease w/ Seizure disorder w/ Thrombocytopenia: Noted metastatic disease to the brain w/ resulting initially R sided mild weakness following w/ Dr. Church with recent radiation treatments with planned gamma knife therapy if radiation successful and additional chemotherapy. Hem/Onc consulted, maintain on AEDs w/ keppra, PRN albuterol. As noted #2, will now start to wean decadron given recent CT findings, will transition to BID regimen and continue taper upon discharge. 07/11/17 Plts 77-->07/12/17 Plts 72-->07/13/[address] Church noted possible plts decrease secondary to recent BM effects w/ recent radiation, expect improvement, but if ongoing decline w/ heparin drip start may require discontinuation w/ as noted IVCF placement. (4) Hyperglycemia w/ New Onset Diabetes mellitus type II: No DM history, ongoing chronic steroid usage w/ current wean plan per discussion w/ Hem/Onc, HgBA1c 7.3%, maintained on ADA diet w/ nutrition education, accu checks w/ ISS, levemir 20 u BID added. Steroids weaned from TID to BID 07/12/17 with improved BS trending. Upon discharge will start metformin. (5) Hypertension: Continue home regimen including Toprol with hold parameters given recent poor intake and dehydration. Renal function improved, now resolved JERRY, will add back home regimen spironolactone, bumex, ACEI with hold parameters. PRN hydralazine. (6) Hyperlipidemia: Not on statin therapy. (7) Chronic AF: s/p pacemaker/AICD. Not anticoagulation candidate given metastatic CA to brain, continued on BB, digoxin and amiodarone. (8) Chronic Thrombocytopenia: Admission plts 93, 07/11/17 Plts 77, trend, 07/12/16 Plts 72-->07/13/17 Plts 70, continue to monitor and if decrease notably with heparin drip would hold per discussion with Dr. Winston and pursue Dr. Bang consult for IVCF. If remain stable will plan transition 07/14/17 to therapeutic lovenox with discharge to home on bridge with close CBC follow-up outpatient. (9) GERD: PPI. (10) DVT Prophylaxis: SCDs, heparin drip as noted with continued close monitoring w/ //06/17 coumadin start and INR trending. Code Visit Inpatient E&M: 40995 Subs Hosp L2
[2017-07-13] MEDS: Pantoprazole Sodium 40 MG Tablet PO (09:45)
[2017-07-13] MEDS: NYSTATIN 500,000 UNIT/5 ML UDC 500000 UNIT PO ×4 (09:45→21:49)
[2017-07-13] MEDS: levETIRAcetam 1,000 MG Tablet 1000 MG PO ×2 (09:45→21:48)
[2017-07-13 11:37] LABS: Partial Thromboplast Time 73.1 Seconds (24.1-36.2)
[2017-07-13 12:01] LABS: Bedside Glucose 143 mg/dL (70-110)
[2017-07-13 13:50] VITALS: BP 130/92; PULSE 71; RESP 16; TEMP 36.4; O2SAT 97
[2017-07-13] MEDS: HEPARIN/D5w 25,000 UNITS 25,000 UNITS/250 ML IV.SOLN. 15 UNITS IV (15:30)
[2017-07-13 17:41] LABS: Bedside Glucose 149 mg/dL (70-110)
[2017-07-13 20:44] VITALS: BP 122/74; PULSE 67; RESP 16; TEMP 36.7; O2SAT 98
[2017-07-13] MEDS: Amiodarone 200 MG Tablet 400 MG PO (21:48)
[2017-07-13 21:49] VITALS: PULSE 74
[2017-07-13] MEDS: Metoprolol(XL)Succ 50 MG Tablet PO (21:49)
[2017-07-13 22:11] LABS: Bedside Glucose 176 mg/dL (70-110)
[2017-07-14] VITALS (7 sets, daily range): BP systolic 99–133; BP diastolic 61–84; PULSE 63–78; RESP 16–18; TEMP 36–36.8; O2SAT 95–98
[2017-07-14] MEDS: 0.9% Normal Saline 1,000 ML 125 ML IV ×2 (01:29→08:28)
[2017-07-14 06:11] LABS: Absolute Lymphocyte Count 0.34 X10^3/ul (0.83-4.51); Absolute Neutrophil Count 5.9 X10^3/uL (2.0-7.7); Anion Gap 9 (5-15); BUN 39 mg/dL (7-18); BUN/Creat Ratio 32.8 RATIO (10-20); Calcium,Total 7.7 mg/dL (8.5-10.1); Chloride 107 mmol/L (98-107); Creatinine, Serum 1.19 mg/dL (0.70-1.30); Differential Indicated SCAN CRITERIA MET; EST Glomerular Filtration Rate 67 mL/min (>60); Est Glom Filt Rate - Afr Amer 81 mL/min (>60); Estimated Creatinine Clearance 81.86 ml/min; Glucose 114 mg/dL (74-106); Hematocrit 42.9 % (40-54); Hemoglobin 14.7 g/dl (13.0-16.5); Lymphocyte # 0.34 X10^3/ul (4.0); Lymphocyte % 5.2 % (19-41); Mean Corp Hgb Conc 34.3 g/gl (32-36); Mean Corpuscular Hgb 32.2 pg (27.0-32.0); Mean Corpuscular Volume 93.9 fL (80-94); Mean Platelet Vol. 9.8 fl (6.2-12.0); Monocyte% 3.1 % (0-10); Neutrophil # 5.92 X10^3/uL (2.7-7.7); Neutrophil % 91.4 % (47-70); POSITIVE COUNT NO; POSITIVE DIFFERENTIAL YES; POSITIVE MORPHOLOGY NO; Platelet Count 69 K/mm3 (150-450); Potassium 4.4 mmol/L (3.5-5.1); RBC Distribution Width SD 50.8 fl (35.1-43.9); Red Blood Count 4.57 M/mm3 (4.6-6.2); Sodium Level 138 mmol/L (136-145); White Blood Count 6.5 K/mm3 (4.4-11.0)
[2017-07-14 06:14] LABS: International Normalized Ratio 1.2
[2017-07-14 06:16] LABS: Partial Thromboplast Time 76.6 Seconds (24.1-36.2)
[2017-07-14 06:41] LABS: Bedside Glucose 122 mg/dL (70-110)
[2017-07-14 08:06] LABS: Bedside Glucose 105 mg/dL (70-110)
[2017-07-14] MEDS: Spironolactone 25 MG Tablet PO (08:16)
[2017-07-14] MEDS: Digoxin 125 MCG Tablet PO (08:17)
[2017-07-14] MEDS: Pantoprazole Sodium 40 MG Tablet PO (08:17)
[2017-07-14] MEDS: Lisinopril 10 MG Tablet PO (08:17)
[2017-07-14] MEDS: Bumetanide 2 MG Tablet PO (08:17)
[2017-07-14] MEDS: levETIRAcetam 1,000 MG Tablet 1000 MG PO ×2 (08:17→21:13)
[2017-07-14] MEDS: NYSTATIN 500,000 UNIT/5 ML UDC 500000 UNIT PO ×4 (08:19→21:14)
--- NOTE | 2017-07-14 08:53 | PCM.PN.HOSP ---
Patient Problems: Active and Suspected Problems JERRY (acute kidney injury) (Acute) Dvt femoral (deep venous thrombosis) (Acute) Subjective: The patient is a 57 y/o M w/ PMHx: HTN, HLD, Chronic Atrial Fibrillation, Cardiomyopathy, Seizure disorder, Chronic Thrombocytopenia, Stage IV Lung Cancer w/ metastatic disease to the brain w/ resulting initially R sided mild weakness following w/ Dr. Church with recent radiation treatments with planned gamma knife therapy if radiation successful and additional chemotherapy who now presents to the [facility] ED on 07/10/17 with worsened R sided weakness, recent falls, malaise, poor oral intake. Acute kidney injury w/ Hyponatremia, Hypovolemic: Secondary to ? poor oral intake but from evaluation, does not appear to be an issue, unclear specific etiology, but improving. Admission Na 134 and BUN/Cr 70/2.02, prior baseline creatinine noted to be 1.2. Renal US not marked appearing. Will continue to hydrate, hold nephrotoxic medications and trend renal function. 07/11/17 BUN/Cr 60/1.68-->Improved, 07/12/17 BUN/Cr 52/1.42-->07/13/17 BUN/Cr 41/1.14-->07/14/17 BUN/Cr 39/1.19. Remains improved. 07/14/17 D/C IVFs with home BP regimen including nephrotoxic regimen restarted without worsened statins. PT, OT consulted for discharge planning w/ recommendation for further skilled therapy; however, patient and family declined with planned discharge to home with home health only once clinically appropriate. Acute LLE DVT, concurrent PAD likely responsible for BL LE, L>R Pain ongoing: Acute deep venous thrombosis left distal femoral, popliteal, tibioperoneal trunk, posterior tibial, peroneal and soleus veins. DVT US BL LE w/ also noted incidental finding of no arterial flow in the right superficial femoral artery and politeal as well as the left superficial femoral and popliteal arteries. Discussed patient w/ Dr. Church given vague unclear size of brain lesions and previously on anticoagulation but taken off secondary to these lesions. Held on start of anticoagulation, continued IVFs overnight, obtained CT with contrast w/ noted multiple bilateral intracerebral metastasis with mild edema, decreased as compared to prior study, abnormal enhancing nodule in the left cerebellum not seen. Discussed with Dr. Winston and reviewed imaging with him with clearance to initiate heparin drip 07/12/17 afternoon with follow-up 07/13/17 CBC w/ plts 70, similar to prior with 07/13/17 evening start of coumadin with continued hepatin drip, 07/14/17 CBC w/ Plts again mild decline 69. Discussed with patient with planned continued heparin drip, coumadin w/ 07/15/17 CBC with re-assessment and planned review 07/15/17 with Hem/Onc. If further or more marked decline will need to stop heparin and coumadin w/ Dr. Bang consult for filter; however, if stable or improved and clearance per Hem/Onc would then transition to lovenox+coumadin with possible 07/15/17 discharge w/ home health. Hyperglycemia w/ New Onset Diabetes mellitus type II: No DM history, ongoing chronic steroid usage w/ current wean plan per discussion w/ Hem/Onc, HgBA1c 7.3%, maintained on ADA diet w/ nutrition education, accu checks w/ ISS, given severity of hyperglycemia levemir up to 30 u BID. Steroids weaned from TID to BID 07/12/17 with improved BS trending, will de-escalate levemir dose to avoid hypoglycemia. May consider upon discharge start of metformin. Remains full code but did discuss status, not very amenable to having these discussions, patient more open. Patient with no acute events overnight per self and per nursing report. Patient remained stable on heparin drip with Coumadin initiation the evening prior. Reviewed labs with patient including again mild decrease of platelets however not drastic. Given patient history decision for continued heparin drip with Coumadin and continued trending of platelets with plan for discussion on Saturday with heme oncology to assure they are satisfied with counts with clearance for transition to therapeutic Lovenox and Coumadin with possible discharge, again if platelets continue to decline may not be the best option for patient and may need to pursue consultation with Dr. Bang for IVC filter. Patient notes understanding of this plan. Patient denies fevers, chills, nausea, emesis, abdominal pain, chest pain or dyspnea. Objective: Physical Examination: General: awake, alert, oriented x 3 and cooperative, seated upright in bed, NAD. Skin: normal color, turgor, no icterus, cyanosis except bilateral lower extremity small ecchymotic regions diffusely. HEENT: AT/NC, EOMI, PERRLA, MMM. Lungs: CTA bilaterally, moderate effort, mild decrease BL bases, no rales, ronchi or wheezing. Heart: Regular rate and rhythm; no gallop, rub audible. Abdomen: soft, NTTP, ND, normal BS. Extremities: no cyanosis, clubbing, BL mild ankle edema, continued TTP LLE. Neurological: patient awake, alert, oriented x 3; cognitive function intact; pupils equally reactive to light and accomodation; cranial nerves II-XII grossly normal, moving all 4 extremities but limited RU, RL and some LLE, strength R sided 3-4/5, LLE 4/5, sensation intact, strength remains similar to day prior, improved strength, moderately globally decreased. Psychiatric: affect appears normal, no acute evidence of depressive or anxiety feelings. Vitals/I&O's: Vital Signs Temp Pulse Resp BP Pulse Ox 98.0 F 63 16 133/71 H 95 07/14/17 08:30 07/14/17 08:30 07/14/17 08:30 07/14/17 08:30 07/14/17 08:30 Oxygen Delivery Method Room Air Weight: 230 lb 13.184 oz Body Mass Index (BMI) 28.8 Intake and Output for Last 24 Hours 07/12/17 07/13/17 07/14/17 23:59 23:59 23:59 Intake Total 4092 / 4092 2856 / 2856 1981 / 1981 Output Total 1175 / 1175 1175 / 1175 1225 / 1225 Balance 2917 / 2917 1681 / 1681 757 / 757 Laboratory Results 07/13/17 11:18: APTT 73.1 H 07/13/17 11:44: POC Glucose 143 H 07/13/17 17:19: POC Glucose 149 H 07/13/17 17:20: APTT 70.0 H 07/13/17 21:47: POC Glucose 176 H 07/14/17 05:25: WBC 6.5, RBC 4.57 L, Hgb 14.7, Hct 42.9, MCV 93.9, MCH 32.2 H, MCHC 34.3, RDW 15.0 H, RDW Differential 50.8 H, Plt Count 69 L, MPV 9.8, Immature Gran % (Auto) 0.300, Neut % (Auto) 91.4 H, Lymph % (Auto) 5.2 L, [place] % (Auto) 3.1, Eos % (Auto) 0.0, Baso % (Auto) 0.0, Absolute Neuts (auto) 5.9, Absolute Lymphs (auto) 0.34 L, Total Counted Not Reportable, Differential Comment 07/14/17 05:25: Sodium 138, Potassium 4.4, Chloride 107, Carbon Dioxide 22.0, Anion Gap 9, BUN 39 H, Creatinine 1.19, Estim Creat Clear Calc 81.86, Est GFR (MDRD) Af Amer 81, Est GFR (MDRD) Non-Af 67, BUN/Creatinine Ratio 32.8 H, Glucose 114 H, Calcium 7.7 L 07/14/17 05:25: PT 15.0 H, INR 1.2, APTT 76.6 H 07/14/17 06:33: POC Glucose 122 H 07/14/17 08:02: POC Glucose 105 Current Medications Acetaminophen (Tylenol) 650 mg PO Q6H PRN PRN PRN Reason: Non-cardiac pain (mod-severe) Hydrocodone Bitart/Acetaminophen (Collbran 5mg-325mg) 1 - 2 tablet PO Q6H PRN PRN PRN Reason: Moderate-severe pain Albuterol Sulfate (Ventolin Aerosols) 2.5 mg INHALATION Q2H PRN PRN PRN Reason: SOB &/OR WHEEZING Amiodarone HCl (Cordarone) 400 mg PO QHS [facility] Last Admin: 07/13/17 21:48 Dose: 400 mg Bumetanide (Bumex) 2 mg PO DAILY [facility] Last Admin: 07/14/17 08:17 Dose: 2 mg Dexamethasone (Decadron) 4 mg PO BIDCM [facility] Last Admin: 07/14/17 08:09 Dose: 4 mg Dextrose (D50w Syringe) 0 gm IV X1 PRN; Protocol PRN Reason: Hypoglycemia Digoxin (Lanoxin) 125 mcg PO SUMOWETHFR [facility] Last Admin: 07/14/17 08:17 Dose: 125 mcg Glucagon () 1 mg IM .X1 PRN PRN Reason: Hypoglycemia Heparin Sodium (Porcine) () 0 units IV UD PRN PRN Reason: Protocol Hydralazine HCl (Apresoline) 10 mg IV Q4H PRN PRN PRN Reason: SBP > 160 Sodium Chloride () 1,000 mls @ 125 mls/hr IV .Q8H [facility] Last Admin: 07/14/17 08:28 Dose: 125 mls/hr Heparin Sodium/Dextrose () 25,000 units in 250 mls @ 15 mls/hr IV .[id number] MIGUEL A; As Directed PRN Reason: Protocol Last Admin: 07/13/17 15:30 Dose: 15 mls/hr Sodium Chloride () 250 mls @ 15 mls/hr IV .[id number] PRN PRN Reason: SALINE FLUSH Insulin Aspart (Novolog Flexpen ([facility])) 0 units SC ACHS [facility] PRN Reason: Protocol Last Admin: 07/14/17 06:37 Dose: Not Given Insulin Detemir (Levemir ([facility])) 30 units SC BID [facility] Last Admin: 07/14/17 08:18 Dose: 30 unit Levetiracetam (Keppra) 1,000 mg PO BID [facility] Last Admin: 07/14/17 08:17 Dose: 1,000 mg Lisinopril (Zestril) 10 mg PO DAILY [facility] Last Admin: 07/14/17 08:17 Dose: 10 mg Metoprolol Succinate (Toprol Xl (Beta Karishma)) 50 mg PO QHS [facility] Last Admin: 07/13/17 21:49 Dose: 50 mg Morphine Sulfate (Morphine) 1 - 2 mg IV Q4H PRN PRN PRN Reason: PAIN Nutritional Formula (Lactose Free) (Glucerna Shake) 120 ml PO 4X/DAY [facility] Last Admin: 07/14/17 08:20 Dose: Not Given Nystatin (Nystatin) 500,000 unit PO 4X/DAY [facility] Last Admin: 07/14/17 08:19 Dose: 500,000 unit Ondansetron HCl (Zofran) 8 mg PO Q8H PRN PRN PRN Reason: NAUSEA Ondansetron HCl (Zofran) 4 mg IV Q8H PRN PRN PRN Reason: NAUSEA/VOMITING Pantoprazole Sodium (Protonix) 40 mg PO DAILY [facility] Last Admin: 07/14/17 08:17 Dose: 40 mg Sodium Chloride () 5 - 30 ml IV UD PRN PRN Reason: SALINE FLUSH Last Admin: 07/13/17 11:30 Dose: 20 ml Spironolactone (Aldactone) 25 mg PO DAILY [facility] Last Admin: 07/14/17 08:16 Dose: 25 mg Temazepam (Restoril) 15 mg PO QHS PRN PRN PRN Reason: insomnia Warfarin Sodium (Coumadin (Pbkc)) 5 mg PO DAILY@1700 [facility] Last Admin: 07/13/17 17:26 Dose: 5 mg Assessment/Plan Active and Suspected Problems JERRY (acute kidney injury) (Acute) Dvt femoral (deep venous thrombosis) (Acute) The patient is a 57 y/o M w/ PMHx: HTN, HLD, Chronic Atrial Fibrillation, Cardiomyopathy, Seizure disorder, Chronic Thrombocytopenia, Stage IV Lung Cancer w/ metastatic disease to the brain w/ resulting initially R sided mild weakness following w/ Dr. Church with recent radiation treatments with planned gamma knife therapy if radiation successful and additional chemotherapy who now presents to the [facility] ED on 07/10/17 with worsened R sided weakness, recent falls, malaise, poor oral intake. (1) Acute kidney injury w/ Hyponatremia, Hypovolemic: Secondary to ? poor oral intake but from evaluation, does not appear to be an issue, unclear specific etiology, but improving. Admission Na 134 and BUN/Cr 70/2.02, prior baseline creatinine noted to be 1.2. Renal US not marked appearing. Will continue to hydrate, hold nephrotoxic medications and trend renal function. 07/11/17 BUN/Cr 60/1.68-->Improved, 07/12/17 BUN/Cr 52/1.42-->07/13/17 BUN/Cr 41/1.14-->07/14/17 BUN/Cr 39/1.19. Remains improved. 07/14/17 D/C IVFs with home BP regimen including nephrotoxic regimen restarted without worsened statins. PT, OT consulted for discharge planning w/ recommendation for further skilled therapy; however, patient and family declined with planned discharge to home with home health only once clinically appropriate from #2. (2) Acute LLE DVT, concurrent PAD likely responsible for BL LE, L>R Pain ongoing: Acute deep venous thrombosis left distal femoral, popliteal, tibioperoneal trunk, posterior tibial, peroneal and soleus veins. DVT US BL LE w/ also noted incidental finding of no arterial flow in the right superficial femoral artery and politeal as well as the left superficial femoral and popliteal arteries. Discussed patient w/ Dr. Church given vague unclear size of brain lesions and previously on anticoagulation but taken off secondary to these lesions. Held on start of anticoagulation, continued IVFs overnight, obtained CT with contrast w/ noted multiple bilateral intracerebral metastasis with mild edema, decreased as compared to prior study, abnormal enhancing nodule in the left cerebellum not seen. Discussed with Dr. Winston and reviewed imaging with him with clearance to initiate heparin drip 07/12/17 afternoon with follow-up 07/13/17 CBC w/ plts 70, similar to prior with 07/13/17 evening start of coumadin with continued hepatin drip, 07/14/17 CBC w/ Plts again mild decline 69. Discussed with patient with planned continued heparin drip, coumadin w/ 07/15/17 CBC with re-assessment and planned review 07/15/17 with Hem/Onc. If further or more marked decline will need to stop heparin and coumadin w/ Dr. Bang consult for filter; however, if stable or improved and clearance per Hem/Onc would then transition to lovenox+coumadin with possible 07/15/17 discharge w/ home health. (3) Stage IV Lung Cancer w/ metastatic disease w/ Seizure disorder w/ Thrombocytopenia: Noted metastatic disease to the brain w/ resulting initially R sided mild weakness following w/ Dr. Church with recent radiation treatments with planned gamma knife therapy if radiation successful and additional chemotherapy. Hem/Onc consulted, maintain on AEDs w/ keppra, PRN albuterol. As noted #2, initiated during admission wean decadron given recent CT findings, with transition to BID regimen and continued taper upon discharge, slow per Hem/Onc clearance. 07/11/17 Plts 77-->07/12/17 Plts 72-->07/13/17 Plts 70-->07/14/[address] Church noted possible plts decrease secondary to recent BM effects w/ recent radiation, expect improvement, but if ongoing decline w/ heparin drip start may require discontinuation w/ as noted IVCF placement as noted #2. (4) Hyperglycemia w/ New Onset Diabetes mellitus type II: No DM history, ongoing chronic steroid usage w/ current wean plan per discussion w/ Hem/Onc, HgBA1c 7.3%, maintained on ADA diet w/ nutrition education, accu checks w/ ISS, given severity of hyperglycemia levemir up to 30 u BID. Steroids weaned from TID to BID 07/12/17 with improved BS trending, will de-escalate levemir dose to avoid hypoglycemia. May consider upon discharge start of metformin. (5) Hypertension: Continue home regimen including Toprol with hold parameters given recent poor intake and dehydration. Renal function improved, now resolved JERRY, will add back home regimen spironolactone, bumex, ACEI with hold parameters. PRN hydralazine. (6) Hyperlipidemia: Not on statin therapy. (7) Chronic AF: s/p pacemaker/AICD. Not anticoagulation candidate given metastatic CA to brain, continued on BB, digoxin and amiodarone. (8) GERD: PPI. (9) DVT Prophylaxis: SCDs, heparin drip as noted with continued close monitoring w/ 07/13/06/17 coumadin start and INR trending. Code Visit Inpatient E&M: 50993 Subs Hosp L2
--- NOTE | 2017-07-14 09:02 | PN_ITS ---
Patient Problems: Active and Suspected Problems JERRY (acute kidney injury) (Acute) Dvt femoral (deep venous thrombosis) (Acute) Subjective: The patient is a 57 y/o M w/ PMHx: HTN, HLD, Chronic Atrial Fibrillation, Cardiomyopathy, Seizure disorder, Chronic Thrombocytopenia, Stage IV Lung Cancer w/ metastatic disease to the brain w/ resulting initially R sided mild weakness following w/ Dr. Church with recent radiation treatments with planned gamma knife therapy if radiation successful and additional chemotherapy who now presents to the [facility] ED on 07/10/17 with worsened R sided weakness, recent falls, malaise, poor oral intake. Acute kidney injury w/ Hyponatremia, Hypovolemic: Secondary to ? poor oral intake but from evaluation, does not appear to be an issue, unclear specific etiology, but improving. Admission Na 134 and BUN/Cr 70/ 2.02, prior baseline creatinine noted to be 1.2. Renal US not marked appearing. Will continue to hydrate, hold nephrotoxic medications and trend renal function. 07/11/17 BUN/Cr 60/1.68-->Improved, 07/12/17 BUN/Cr 52/1.42-->07/13/17 BUN/ Cr 41/1.14-->07/14/17 BUN/Cr 39/1.19. Remains improved. 07/14/17 D/C IVFs with home BP regimen including nephrotoxic regimen restarted without worsened statins. PT , OT consulted for discharge planning w/ recommendation for further skilled therapy; however, patient and family declined with planned discharge to home with home health only once clinically appropriate. Acute LLE DVT, concurrent PAD likely responsible for BL LE, L>R Pain ongoing: Acute deep venous thrombosis left distal femoral, popliteal, tibioperoneal trunk, posterior tibial , peroneal and soleus veins. DVT US BL LE w/ also noted incidental finding of no arterial flow in the right superficial femoral artery and politeal as well as the left superficial femoral and popliteal arteries. Discussed patient w/ Dr. Church given vague unclear size of brain lesions and previously on anticoagulation but taken off secondary to these lesions. Held on start of anticoagulation, continued IVFs overnight, obtained CT with contrast w/ noted multiple bilateral intracerebral metastasis with mild edema, decreased as compared to prior study, abnormal enhancing nodule in the left cerebellum not seen. Discussed with Dr. Winston and reviewed imaging with him with clearance to initiate heparin drip 07/12/17 afternoon with follow-up 07/13/17 CBC w/ plts 70, similar to prior with 07/13/17 evening start of coumadin with continued hepatin drip, 07/14/17 CBC w/ Plts again mild decline 69. Discussed with patient with planned continued heparin drip, coumadin w/ 07/15/17 CBC with re-assessment and planned review 07/15/17 with Hem/Onc. If further or more marked decline will need to stop heparin and coumadin w/ Dr. Bang consult for filter; however, if stable or improved and clearance per Hem/Onc would then transition to lovenox+ coumadin with possible 07/15/17 discharge w/ home health. Hyperglycemia w/ New Onset Diabetes mellitus type II: No DM history, ongoing chronic steroid usage w / current wean plan per discussion w/ Hem/Onc, HgBA1c 7.3%, maintained on ADA diet w/ nutrition education, accu checks w/ ISS, given severity of hyperglycemia levemir up to 30 u BID. Steroids weaned from TID to BID 07/12/17 with improved BS trending, will de-escalate levemir dose to avoid hypoglycemia. May consider upon discharge start of metformin. Remains full code but did discuss status, not very amenable to having these discussions, patient more open. Patient with no acute events overnight per self and per nursing report. Patient remained stable on heparin drip with Coumadin initiation the evening prior. Reviewed labs with patient including again mild decrease of platelets however not drastic. Given patient history decision for continued heparin drip with Coumadin and continued trending of platelets with plan for discussion on Saturday with heme oncology to assure they are satisfied with counts with clearance for transition to therapeutic Lovenox and Coumadin with possible discharge, again if platelets continue to decline may not be the best option for patient and may need to pursue consultation with Dr. Bang for IVC filter. Patient notes understanding of this plan. Patient denies fevers, chills, nausea , emesis, abdominal pain, chest pain or dyspnea. Objective: Physical Examination: General: awake, alert, oriented x 3 and cooperative, seated upright in bed, NAD. Skin: normal color, turgor, no icterus, cyanosis except bilateral lower extremity small ecchymotic regions diffusely. HEENT: AT/NC, EOMI, PERRLA, MMM. Lungs: CTA bilaterally, moderate effort, mild decrease BL bases, no rales, ronchi or wheezing. Heart: Regular rate and rhythm; no gallop, rub audible. Abdomen: soft, NTTP, ND, normal BS. Extremities: no cyanosis, clubbing, BL mild ankle edema, continued TTP LLE. Neurological: patient awake, alert, oriented x 3; cognitive function intact; pupils equally reactive to light and accomodation; cranial nerves II-XII grossly normal, moving all 4 extremities but limited RU, RL and some LLE, strength R sided 3-4/5, LLE 4/5, sensation intact, strength remains similar to day prior, improved strength, moderately globally decreased. Psychiatric: affect appears normal, no acute evidence of depressive or anxiety feelings. Vitals/I&O's: Vital Signs Temp Pulse Resp BP Pulse Ox 98.0 F 63 16 133/71 H 95 07/14/17 08:30 07/14/17 08:30 07/14/17 08:30 07/14/17 08:30 07/14/17 08:30 Oxygen Delivery Method Room Air Weight: 230 lb 13.184 oz Body Mass Index (BMI) 28.8 Intake and Output for Last 24 Hours 07/12/17 07/13/17 07/14/17 23:59 23:59 23:59 Intake Total 4092 / 4092 2856 / 2856 1981 / 1981 Output Total 1175 / 1175 1175 / 1175 1225 / 1225 Balance 2917 / 2917 1681 / 1681 757 / 757 Laboratory Results 07/13/17 11:18: APTT 73.1 H 07/13/17 11:44: POC Glucose 143 H 07/13/17 17:19: POC Glucose 149 H 07/13/17 17:20: APTT 70.0 H 07/13/17 21:47: POC Glucose 176 H 07/14/17 05:25: WBC 6.5, RBC 4.57 L, Hgb 14.7, Hct 42.9, MCV 93.9, MCH 32.2 H, MCHC 34.3, RDW 15.0 H, RDW Differential 50.8 H, Plt Count 69 L, MPV 9.8, Immature Gran % (Auto) 0.300, Neut % (Auto) 91.4 H, Lymph % (Auto) 5.2 L, [place] % (Auto) 3.1, Eos % (Auto) 0.0, Baso % (Auto) 0.0, Absolute Neuts (auto) 5.9, Absolute Lymphs (auto) 0.34 L, Total Counted Not Reportable, Differential Comment 07/14/17 05:25: Sodium 138, Potassium 4.4, Chloride 107, Carbon Dioxide 22.0, Anion Gap 9, BUN 39 H, Creatinine 1.19, Estim Creat Clear Calc 81.86, Est GFR ( MDRD) Af Amer 81, Est GFR (MDRD) Non-Af 67, BUN/Creatinine Ratio 32.8 H, Glucose 114 H, Calcium 7.7 L 07/14/17 05:25: PT 15.0 H, INR 1.2, APTT 76.6 H 07/14/17 06:33: POC Glucose 122 H 07/14/17 08:02: POC Glucose 105 Current Medications Acetaminophen (Tylenol) 650 mg PO Q6H PRN PRN PRN Reason: Non-cardiac pain (mod-severe) Hydrocodone Bitart/Acetaminophen ([place] 5mg-325mg) 1 - 2 tablet PO Q6H PRN PRN PRN Reason: Moderate-severe pain Albuterol Sulfate (Ventolin Aerosols) 2.5 mg INHALATION Q2H PRN PRN PRN Reason: SOB &/OR WHEEZING Amiodarone HCl (Cordarone) 400 mg PO QHS [facility] Last Admin: 07/13/17 21:48 Dose: 400 mg Bumetanide (Bumex) 2 mg PO DAILY [facility] Last Admin: 07/14/17 08:17 Dose: 2 mg Dexamethasone (Decadron) 4 mg PO BIDCM [facility] Last Admin: 07/14/17 08:09 Dose: 4 mg Dextrose (D50w Syringe) 0 gm IV X1 PRN; Protocol PRN Reason: Hypoglycemia Digoxin (Lanoxin) 125 mcg PO SUMOWETHFR [facility] Last Admin: 07/14/17 08:17 Dose: 125 mcg Glucagon () 1 mg IM .X1 PRN PRN Reason: Hypoglycemia Heparin Sodium (Porcine) () 0 units IV UD PRN PRN Reason: Protocol Hydralazine HCl (Apresoline) 10 mg IV Q4H PRN PRN PRN Reason: SBP > 160 Sodium Chloride () 1,000 mls @ 125 mls/hr IV .Q8H [facility] Last Admin: 07/14/17 08:28 Dose: 125 mls/hr Heparin Sodium/Dextrose () 25,000 units in 250 mls @ 15 mls/hr IV .[id number] MIGUEL A ; As Directed PRN Reason: Protocol Last Admin: 07/13/17 15:30 Dose: 15 mls/hr Sodium Chloride () 250 mls @ 15 mls/hr IV .[id number] PRN PRN Reason: SALINE FLUSH Insulin Aspart (Novolog Flexpen ([facility])) 0 units SC ACHS [facility] PRN Reason: Protocol Last Admin: 07/14/17 06:37 Dose: Not Given Insulin Detemir (Levemir ([facility])) 30 units SC BID [facility] Last Admin: 07/14/17 08:18 Dose: 30 unit Levetiracetam (Keppra) 1,000 mg PO BID [facility] Last Admin: 07/14/17 08:17 Dose: 1,000 mg Lisinopril (Zestril) 10 mg PO DAILY [facility] Last Admin: 07/14/17 08:17 Dose: 10 mg Metoprolol Succinate (Toprol Xl (Beta Karishma)) 50 mg PO QHS [facility] Last Admin: 07/13/17 21:49 Dose: 50 mg Morphine Sulfate (Morphine) 1 - 2 mg IV Q4H PRN PRN PRN Reason: PAIN Nutritional Formula (Lactose Free) (Glucerna Shake) 120 ml PO 4X/DAY [facility] Last Admin: 07/14/17 08:20 Dose: Not Given Nystatin (Nystatin) 500,000 unit PO 4X/DAY [facility] Last Admin: 07/14/17 08:19 Dose: 500,000 unit Ondansetron HCl (Zofran) 8 mg PO Q8H PRN PRN PRN Reason: NAUSEA Ondansetron HCl (Zofran) 4 mg IV Q8H PRN PRN PRN Reason: NAUSEA/VOMITING Pantoprazole Sodium (Protonix) 40 mg PO DAILY [facility] Last Admin: 07/14/17 08:17 Dose: 40 mg Sodium Chloride () 5 - 30 ml IV UD PRN PRN Reason: SALINE FLUSH Last Admin: 07/13/17 11:30 Dose: 20 ml Spironolactone (Aldactone) 25 mg PO DAILY [facility] Last Admin: 07/14/17 08:16 Dose: 25 mg Temazepam (Restoril) 15 mg PO QHS PRN PRN PRN Reason: insomnia Warfarin Sodium (Coumadin (Pbkc)) 5 mg PO DAILY@1700 [facility] Last Admin: 07/13/17 17:26 Dose: 5 mg Assessment/Plan Active and Suspected Problems JERRY (acute kidney injury) (Acute) Dvt femoral (deep venous thrombosis) (Acute) The patient is a 57 y/o M w/ PMHx: HTN, HLD, Chronic Atrial Fibrillation, Cardiomyopathy, Seizure disorder, Chronic Thrombocytopenia, Stage IV Lung Cancer w/ metastatic disease to the brain w/ resulting initially R sided mild weakness following w/ Dr. Church with recent radiation treatments with planned gamma knife therapy if radiation successful and additional chemotherapy who now presents to the [facility] ED on 07/10/17 with worsened R sided weakness, recent falls, malaise, poor oral intake. (1) Acute kidney injury w/ Hyponatremia, Hypovolemic: Secondary to ? poor oral intake but from evaluation, does not appear to be an issue, unclear specific etiology, but improving. Admission Na 134 and BUN/Cr 70/2.02, prior baseline creatinine noted to be 1.2. Renal US not marked appearing. Will continue to hydrate, hold nephrotoxic medications and trend renal function. 07/11/17 BUN/Cr 60 /1.68-->Improved, 07/12/17 BUN/Cr 52/1.42-->07/13/17 BUN/Cr 41/1.14-->07/14/17 BUN/Cr 39/1.19. Remains improved. 07/14/17 D/C IVFs with home BP regimen including nephrotoxic regimen restarted without worsened statins. PT, OT consulted for discharge planning w/ recommendation for further skilled therapy; however, patient and family declined with planned discharge to home with home health only once clinically appropriate from #2. (2) Acute LLE DVT, concurrent PAD likely responsible for BL LE, L>R Pain ongoing : Acute deep venous thrombosis left distal femoral, popliteal, tibioperoneal trunk, posterior tibial, peroneal and soleus veins. DVT US BL LE w/ also noted incidental finding of no arterial flow in the right superficial femoral artery and politeal as well as the left superficial femoral and popliteal arteries. Discussed patient w/ Dr. Church given vague unclear size of brain lesions and previously on anticoagulation but taken off secondary to these lesions. Held on start of anticoagulation, continued IVFs overnight, obtained CT with contrast w / noted multiple bilateral intracerebral metastasis with mild edema, decreased as compared to prior study, abnormal enhancing nodule in the left cerebellum not seen. Discussed with Dr. Winston and reviewed imaging with him with clearance to initiate heparin drip 07/12/17 afternoon with follow-up 07/13/17 CBC w/ plts 70, similar to prior with 07/13/17 evening start of coumadin with continued hepatin drip, 07/14/17 CBC w/ Plts again mild decline 69. Discussed with patient with planned continued heparin drip, coumadin w/ 07/15/17 CBC with re-assessment and planned review 07/15/17 with Hem/Onc. If further or more marked decline will need to stop heparin and coumadin w/ Dr. Bang consult for filter; however, if stable or improved and clearance per Hem/Onc would then transition to lovenox+ coumadin with possible 07/15/17 discharge w/ home health. (3) Stage IV Lung Cancer w/ metastatic disease w/ Seizure disorder w/ Thrombocytopenia: Noted metastatic disease to the brain w/ resulting initially R sided mild weakness following w/ Dr. Church with recent radiation treatments with planned gamma knife therapy if radiation successful and additional chemotherapy. Hem/Onc consulted, maintain on AEDs w/ keppra, PRN albuterol. As noted #2, initiated during admission wean decadron given recent CT findings, with transition to BID regimen and continued taper upon discharge, slow per Hem/ Onc clearance. 07/11/17 Plts 77-->07/12/17 Plts 72-->07/13/17 Plts 70-->07/14/[address] Church noted possible plts decrease secondary to recent BM effects w/ recent radiation, expect improvement, but if ongoing decline w/ heparin drip start may require discontinuation w/ as noted IVCF placement as noted #2. (4) Hyperglycemia w/ New Onset Diabetes mellitus type II: No DM history, ongoing chronic steroid usage w/ current wean plan per discussion w/ Hem/Onc, HgBA1c 7.3%, maintained on ADA diet w/ nutrition education, accu checks w/ ISS, given severity of hyperglycemia levemir up to 30 u BID. Steroids weaned from TID to BID 07/12/17 with improved BS trending, will de-escalate levemir dose to avoid hypoglycemia. May consider upon discharge start of metformin. (5) Hypertension: Continue home regimen including Toprol with hold parameters given recent poor intake and dehydration. Renal function improved, now resolved JERRY, will add back home regimen spironolactone, bumex, ACEI with hold parameters. PRN hydralazine. (6) Hyperlipidemia: Not on statin therapy. (7) Chronic AF: s/p pacemaker/AICD. Not anticoagulation candidate given metastatic CA to brain, continued on BB, digoxin and amiodarone. (8) GERD: PPI. (9) DVT Prophylaxis: SCDs, heparin drip as noted with continued close monitoring w/ 07/13/06/17 coumadin start and INR trending. Code Visit Inpatient E&M: 54410 Subs Hosp L2
[2017-07-14 12:21] LABS: Bedside Glucose 156 mg/dL (70-110)
[2017-07-14] MEDS: HEPARIN/D5w 25,000 UNITS 25,000 UNITS/250 ML IV.SOLN. 15 UNITS IV (17:10)
[2017-07-14 17:26] LABS: Bedside Glucose 167 mg/dL (70-110)
[2017-07-14 20:56] LABS: Bedside Glucose 205 mg/dL (70-110)
[2017-07-14] MEDS: Amiodarone 200 MG Tablet 400 MG PO (21:12)
[2017-07-14] MEDS: Metoprolol(XL)Succ 50 MG Tablet PO (21:14)
[2017-07-15] VITALS (7 sets, daily range): BP systolic 107–124; BP diastolic 60–85; PULSE 63–72; RESP 16–18; TEMP 36.2–36.8; O2SAT 96–98
[2017-07-15 06:24] LABS: Anion Gap 8 (5-15); BUN 45 mg/dL (7-18); BUN/Creat Ratio 33.3 RATIO (10-20); Calcium,Total 7.8 mg/dL (8.5-10.1); Chloride 104 mmol/L (98-107); Creatinine, Serum 1.35 mg/dL (0.70-1.30); EST Glomerular Filtration Rate 58 mL/min (>60); Est Glom Filt Rate - Afr Amer 70 mL/min (>60); Estimated Creatinine Clearance 72.16 ml/min; Glucose 129 mg/dL (74-106); Potassium 4.2 mmol/L (3.5-5.1); Sodium Level 136 mmol/L (136-145)
[2017-07-15 06:27] LABS: Absolute Neutrophil Count 5.6 X10^3/uL (2.0-7.7); Basophil# 0.01 X10^3/uL; Basophil% 0.2 % (0-1); Hematocrit 41.4 % (40-54); Hemoglobin 15.1 g/dl (13.0-16.5); Lymphocyte % 4.8 % (19-41); Mean Corp Hgb Conc 36.5 g/gl (32-36); Mean Corpuscular Hgb 33.6 pg (27.0-32.0); Mean Corpuscular Volume 92.2 fL (80-94); Mean Platelet Vol. 9.8 fl (6.2-12.0); Monocyte# 0.26 X10^3/uL; Monocyte% 4.2 % (0-10); Neutrophil # 5.62 X10^3/uL (2.7-7.7); Neutrophil % 89.8 % (47-70); Platelet Count 79 K/mm3 (150-450); RBC Distribution Width CV 14.9 % (11.6-14.6); RBC Distribution Width SD 48.6 fl (35.1-43.9); Red Blood Count 4.49 M/mm3 (4.6-6.2); White Blood Count 6.3 K/mm3 (4.4-11.0)
[2017-07-15 06:32] LABS: International Normalized Ratio 1.2; Prothrombin Time (Protime)PT. 15.1 SECONDS (11.7-14.9)
[2017-07-15 06:33] LABS: Partial Thromboplast Time 66.6 Seconds (24.1-36.2)
[2017-07-15 06:41] LABS: Differential Indicated SCAN CRITERIA MET; POSITIVE COUNT NO; POSITIVE DIFFERENTIAL YES; POSITIVE MORPHOLOGY NO
[2017-07-15 06:46] LABS: Bedside Glucose 125 mg/dL (70-110)
[2017-07-15 06:51] LABS: Differential Comment SCANNED
--- NOTE | 2017-07-15 07:56 | PCM.PROGNOTE ---
Patient Problems: Active and Suspected Problems JERRY (acute kidney injury) (Acute) Dvt femoral (deep venous thrombosis) (Acute) Subjective: No complaints. - Physical Exam General: Alert, Oriented x3 Extremities: - - Less swelling and edema. Vital Signs Temp Pulse Resp BP Pulse Ox 98.1 F 63 17 124/79 H 97 07/15/17 02:28 07/15/17 02:28 07/15/17 02:28 07/15/17 02:28 07/15/17 02:28 Oxygen Delivery Method Room Air Weight: 104.7 kg Body Mass Index (BMI) 28.8 Intake and Output for Last 24 Hours 07/13/17 07/14/17 07/15/17 23:59 23:59 23:59 Intake Total 2856 / 2856 2471 / 2471 581 / 581 Output Total 1175 / 1175 5200 / 5200 2550 / 2550 Balance 1681 / 1681 -2729 / -9 -1968 / -1968 Laboratory Tests Past 24 Hrs 07/15/17 07/15/17 07/15/17 05:50 05:50 05:50 WBC 6.3 RBC 4.49 L Hgb 15.1 Hct 41.4 MCV 92.2 MCH 33.6 H MCHC 36.5 H RDW 14.9 H RDW Differential 48.6 H Plt Count 79 L MPV 9.8 Immature Gran % (Auto) 1.000 H Neut % (Auto) 89.8 H Lymph % (Auto) 4.8 L [place] % (Auto) 4.2 Eos % (Auto) 0.0 Baso % (Auto) 0.2 Absolute Neuts (auto) 5.6 Absolute Lymphs (auto) 0.30 L Total Counted Not Reportable Differential Comment SCANNED PT 15.1 H INR 1.2 APTT 66.6 H Sodium 136 Potassium 4.2 Chloride 104 Carbon Dioxide 24.0 Anion Gap 8 BUN 45 H Creatinine 1.35 H Estim Creat Clear Calc 72.16 Est GFR (MDRD) Af Amer 70 Est GFR (MDRD) Non-Af 58 L BUN/Creatinine Ratio 33.3 H Glucose 129 H Calcium 7.8 L POC Glucose 07/15/17 07/14/17 07/14/17 06:35 20:49 17:03 POC Glucose 125 H 205 H 167 H 07/14/17 07/14/17 12:14 08:02 POC Glucose 156 H 105 Assessment/Plan Active and Suspected Problems JERRY (acute kidney injury) (Acute) Dvt femoral (deep venous thrombosis) (Acute) 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 Under better control. -Would d/c home on dexamethasone 4 mg BID x5 days then decrease to 4 mg daily. -Needs f/u this week with PCP for diabetes management. DVT. -I recommend Lovenox for mcc anticoagulation rather than Coumadin. Brain metastases. CT showed responding metastases. -Plan repeat CT in about 4 weeks. -Evaluation at [facility] for possible gamma knife. -Dex taper as above. -Continue Keppra. NSCLC. PET last week showed primary tumor in [place]. -CT chest in about 2 months. A fib. Rate controlled. -Follow up with Dr. Leach this week. Patient declined SNF, so would arrange home PT.
--- NOTE | 2017-07-15 08:01 | PN_ITS ---
Patient Problems: Active and Suspected Problems JERRY (acute kidney injury) (Acute) Dvt femoral (deep venous thrombosis) (Acute) Subjective: No complaints. - Physical Exam General: Alert, Oriented x3 Extremities: - - Less swelling and edema. Vital Signs Temp Pulse Resp BP Pulse Ox 98.1 F 63 17 124/79 H 97 07/15/17 02:28 07/15/17 02:28 07/15/17 02:28 07/15/17 02:28 07/15/17 02:28 Oxygen Delivery Method Room Air Weight: 104.7 kg Body Mass Index (BMI) 28.8 Intake and Output for Last 24 Hours 07/13/17 07/14/17 07/15/17 23:59 23:59 23:59 Intake Total 2856 / 2856 2471 / 2471 581 / 581 Output Total 1175 / 1175 5200 / 5200 2550 / 2550 Balance 1681 / 1681 -2729 / -9 -1968 / -1968 Laboratory Tests Past 24 Hrs 07/15/17 07/15/17 07/15/17 05:50 05:50 05:50 WBC 6.3 RBC 4.49 L Hgb 15.1 Hct 41.4 MCV 92.2 MCH 33.6 H MCHC 36.5 H RDW 14.9 H RDW Differential 48.6 H Plt Count 79 L MPV 9.8 Immature Gran % (Auto) 1.000 H Neut % (Auto) 89.8 H Lymph % (Auto) 4.8 L [place] % (Auto) 4.2 Eos % (Auto) 0.0 Baso % (Auto) 0.2 Absolute Neuts (auto) 5.6 Absolute Lymphs (auto) 0.30 L Total Counted Not Reportable Differential Comment SCANNED PT 15.1 H INR 1.2 APTT 66.6 H Sodium 136 Potassium 4.2 Chloride 104 Carbon Dioxide 24.0 Anion Gap 8 BUN 45 H Creatinine 1.35 H Estim Creat Clear Calc 72.16 Est GFR (MDRD) Af Amer 70 Est GFR (MDRD) Non-Af 58 L BUN/Creatinine Ratio 33.3 H Glucose 129 H Calcium 7.8 L POC Glucose 07/15/17 07/14/17 07/14/17 06:35 20:49 17:03 POC Glucose 125 H 205 H 167 H 07/14/17 07/14/17 12:14 08:02 POC Glucose 156 H 105 Assessment/Plan Active and Suspected Problems JERRY (acute kidney injury) (Acute) Dvt femoral (deep venous thrombosis) (Acute) 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 Under better control. -Would d/c home on dexamethasone 4 mg BID x5 days then decrease to 4 mg daily. -Needs f/u this week with PCP for diabetes management. DVT. -I recommend Lovenox for fdc anticoagulation rather than Coumadin. Brain metastases. CT showed responding metastases. -Plan repeat CT in about 4 weeks. -Evaluation at [facility] for possible gamma knife. -Dex taper as above. -Continue Keppra. NSCLC. PET last week showed primary tumor in [place]. -CT chest in about 2 months. A fib. Rate controlled. -Follow up with Dr. Leach this week. Patient declined SNF, so would arrange home PT.
[2017-07-15] MEDS: Pantoprazole Sodium 40 MG Tablet PO (08:06)
[2017-07-15] MEDS: Bumetanide 2 MG Tablet PO (08:07)
[2017-07-15] MEDS: Spironolactone 25 MG Tablet PO (08:07)
[2017-07-15] MEDS: Digoxin 125 MCG Tablet PO (08:07)
[2017-07-15] MEDS: Lisinopril 10 MG Tablet PO (08:08)
[2017-07-15] MEDS: NYSTATIN 500,000 UNIT/5 ML UDC 500000 UNIT PO ×4 (08:08→20:58)
[2017-07-15] MEDS: levETIRAcetam 1,000 MG Tablet 1000 MG PO ×2 (08:16→21:07)
[2017-07-15] MEDS: Glucerna Shake 120 ML LIQUID PO ×3 (08:18→17:26)
[2017-07-15 11:31] LABS: Bedside Glucose 192 mg/dL (70-110)
[2017-07-15 16:26] LABS: Bedside Glucose 165 mg/dL (70-110)
--- NOTE | 2017-07-15 17:33 | PCM.PN.HOSP ---
Patient Problems: Active and Suspected Problems JERRY (acute kidney injury) (Acute) Dvt femoral (deep venous thrombosis) (Acute) Subjective: CC: Acute left Leg DVT, weakness, recent falls. This is a 57-year-old with metastatic lung cancer who is here with left leg DVT and generalized weakness. He denies any shortness of breath, chest pain or palpitations. Vitals/I&O's: Vital Signs Temp Pulse Resp BP Pulse Ox 98.2 F 69 16 117/72 97 07/15/17 14:11 07/15/17 14:11 07/15/17 14:11 07/15/17 14:11 07/15/17 14:11 Oxygen Delivery Method Room Air Weight: 104.7 kg Body Mass Index (BMI) 28.8 Intake and Output for Last 24 Hours 07/13/17 07/14/17 07/15/17 23:59 23:59 23:59 Intake Total 2856 / 2856 2471 / 2471 1381 / 1381 Output Total 1175 / 1175 5200 / 5200 5350 / 5350 Balance 1681 / 1681 -2729 / -2729 -3969 / -3969 General: Alert, Oriented x3 Oral: Moist Mucosa Neck: Supple, No JVD Lungs: Clear to auscultation Cardiovascular: Regular rate, Normal S1, Normal S2 Abdomen: Bowel Sounds Present, Soft Extremities: No clubbing Laboratory Results 07/14/17 20:49: POC Glucose 205 H 07/15/17 05:50: WBC 6.3, RBC 4.49 L, Hgb 15.1, Hct 41.4, MCV 92.2, MCH 33.6 H, MCHC 36.5 H, RDW 14.9 H, RDW Differential 48.6 H, Plt Count 79 L, MPV 9.8, Immature Gran % (Auto) 1.000 H, Neut % (Auto) 89.8 H, Lymph % (Auto) 4.8 L, [place] % (Auto) 4.2, Eos % (Auto) 0.0, Baso % (Auto) 0.2, Absolute Neuts (auto) 5.6, Absolute Lymphs (auto) 0.30 L, Total Counted Not Reportable, Differential Comment SCANNED 07/15/17 05:50: Sodium 136, Potassium 4.2, Chloride 104, Carbon Dioxide 24.0, Anion Gap 8, BUN 45 H, Creatinine 1.35 H, Estim Creat Clear Calc 72.16, Est GFR (MDRD) Af Amer 70, Est GFR (MDRD) Non-Af 58 L, BUN/Creatinine Ratio 33.3 H, Glucose 129 H, Calcium 7.8 L 07/15/17 05:50: PT 15.1 H, INR 1.2, APTT 66.6 H 07/15/17 06:35: POC Glucose 125 H 07/15/17 11:16: POC Glucose 192 H 07/15/17 16:21: POC Glucose 165 H Current Medications Acetaminophen (Tylenol) 650 mg PO Q6H PRN PRN PRN Reason: Non-cardiac pain (mod-severe) Hydrocodone Bitart/Acetaminophen ([place] 5mg-325mg) 1 - 2 tablet PO Q6H PRN PRN PRN Reason: Moderate-severe pain Albuterol Sulfate (Ventolin Aerosols) 2.5 mg INHALATION Q2H PRN PRN PRN Reason: SOB &/OR WHEEZING Amiodarone HCl (Cordarone) 400 mg PO QHS [facility] Last Admin: 07/14/17 21:12 Dose: 400 mg Bumetanide (Bumex) 2 mg PO DAILY [facility] Last Admin: 07/15/17 08:07 Dose: 2 mg Dexamethasone (Decadron) 4 mg PO BIDCM [facility] Last Admin: 07/15/17 17:20 Dose: 4 mg Dextrose (D50w Syringe) 0 gm IV X1 PRN; Protocol PRN Reason: Hypoglycemia Digoxin (Lanoxin) 125 mcg PO SUMOWETHFR [facility] Last Admin: 07/15/17 08:07 Dose: 125 mcg Glucagon () 1 mg IM .X1 PRN PRN Reason: Hypoglycemia Heparin Sodium (Porcine) () 0 units IV UD PRN PRN Reason: Protocol Hydralazine HCl (Apresoline) 10 mg IV Q4H PRN PRN PRN Reason: SBP > 160 Heparin Sodium/Dextrose () 25,000 units in 250 mls @ 15 mls/hr IV .[id number] [facility]; As Directed PRN Reason: Protocol Last Admin: 07/14/17 17:10 Dose: 15 mls/hr Sodium Chloride () 250 mls @ 15 mls/hr IV .[id number] PRN PRN Reason: SALINE FLUSH Insulin Aspart (Novolog Flexpen (Bk)) 0 units SC ACHS [facility] PRN Reason: Protocol Last Admin: 07/15/17 17:18 Dose: 1 u Insulin Detemir (Levemir (Bk)) 20 units SC BID [facility] Last Admin: 07/15/17 08:08 Dose: 20 u Levetiracetam (Keppra) 1,000 mg PO BID [facility] Last Admin: 07/15/17 08:16 Dose: 1,000 mg Lisinopril (Zestril) 10 mg PO DAILY [facility] Last Admin: 07/15/17 08:08 Dose: 10 mg Metoprolol Succinate (Toprol Xl (Beta Karishma)) 50 mg PO QHS [facility] Last Admin: 07/14/17 21:14 Dose: 50 mg Morphine Sulfate (Morphine) 1 - 2 mg IV Q4H PRN PRN PRN Reason: PAIN Nutritional Formula (Lactose Free) (Glucerna Shake) 120 ml PO 4X/DAY [facility] Last Admin: 07/15/17 17:26 Dose: 120 ml Nystatin (Nystatin) 500,000 unit PO 4X/DAY [facility] Last Admin: 07/15/17 17:20 Dose: 500,000 unit Ondansetron HCl (Zofran) 8 mg PO Q8H PRN PRN PRN Reason: NAUSEA Ondansetron HCl (Zofran) 4 mg IV Q8H PRN PRN PRN Reason: NAUSEA/VOMITING Pantoprazole Sodium (Protonix) 40 mg PO DAILY [facility] Last Admin: 07/15/17 08:06 Dose: 40 mg Sodium Chloride () 5 - 30 ml IV UD PRN PRN Reason: SALINE FLUSH Last Admin: 07/13/17 11:30 Dose: 20 ml Spironolactone (Aldactone) 25 mg PO DAILY [facility] Last Admin: 07/15/17 08:07 Dose: 25 mg Temazepam (Restoril) 15 mg PO QHS PRN PRN PRN Reason: insomnia Warfarin Sodium (Coumadin (Pbkc)) 5 mg PO DAILY@1700 [facility] Last Admin: 07/15/17 17:19 Dose: 5 mg Assessment/Plan Active and Suspected Problems JERRY (acute kidney injury) (Acute) Dvt femoral (deep venous thrombosis) (Acute) 1. Left leg DVT; we will change to Lovenox. 2. Acute kidney injury; we will avoid potential nephrotoxic medications. 3. Metastatic lung cancer to the brain; he presented with right-sided weakness, he is currently receiving Decadron with which is being tapered. he is on Keppra for seizure prevention. 4. Chronic AF; he is on BB, digoxin and amiodarone. 5. Hypertension; controlled. Code Visit Inpatient E&M: 68986 Subs Hosp L2
[2017-07-15] MEDS: HEPARIN/D5w 25,000 UNITS 25,000 UNITS/250 ML IV.SOLN. 15 UNITS IV (18:49)
[2017-07-15] MEDS: Metoprolol(XL)Succ 50 MG Tablet PO (20:59)
[2017-07-15] MEDS: Amiodarone 200 MG Tablet 400 MG PO (21:02)
[2017-07-15 21:16] LABS: Bedside Glucose 224 mg/dL (70-110)
[2017-07-16] VITALS (9 sets, daily range): BP systolic 85–102; BP diastolic 53–61; PULSE 62–78; RESP 16–18; TEMP 36.3–36.4; O2SAT 97–98
[2017-07-16] MEDS: 0.9% NaCl Peripheral Flush Adult/Peds IV (03:24)
[2017-07-16] MEDS: Ondansetron 4 MG/2 ML Vial IV ×2 (03:24→12:39)
[2017-07-16 05:27] LABS: Absolute Neutrophil Count 4.8 X10^3/uL (2.0-7.7); Basophil# 0.01 X10^3/uL; Basophil% 0.2 % (0-1); Hematocrit 47.8 % (40-54); Hemoglobin 17.2 g/dl (13.0-16.5); Lymphocyte % 5.6 % (19-41); Mean Corpuscular Hgb 33.1 pg (27.0-32.0); Mean Corpuscular Volume 91.9 fL (80-94); Mean Platelet Vol. 10.2 fl (6.2-12.0); Monocyte# 0.22 X10^3/uL; Monocyte% 4.1 % (0-10); Neutrophil # 4.79 X10^3/uL (2.7-7.7); Neutrophil % 89.4 % (47-70); Platelet Count 100 K/mm3 (150-450); RBC Distribution Width CV 15.2 % (11.6-14.6); White Blood Count 5.4 K/mm3 (4.4-11.0)
[2017-07-16 05:28] LABS: Differential Indicated SCAN CRITERIA MET; POSITIVE COUNT NO; POSITIVE DIFFERENTIAL YES; POSITIVE MORPHOLOGY NO
[2017-07-16 05:35] LABS: International Normalized Ratio 1.2; Prothrombin Time (Protime)PT. 14.8 SECONDS (11.7-14.9)
[2017-07-16 05:36] LABS: Partial Thromboplast Time 63.2 Seconds (24.1-36.2)
[2017-07-16 05:43] LABS: Anion Gap 8 (5-15); BUN 57 mg/dL (7-18); Calcium,Total 7.7 mg/dL (8.5-10.1); Chloride 101 mmol/L (98-107); EST Glomerular Filtration Rate 51 mL/min (>60); Est Glom Filt Rate - Afr Amer 62 mL/min (>60); Estimated Creatinine Clearance 64.94 ml/min; Glucose 126 mg/dL (74-106); Potassium 4.1 mmol/L (3.5-5.1); Sodium Level 134 mmol/L (136-145)
[2017-07-16 05:51] LABS: Differential Comment SCANNED; Toxic Granulation 1+
[2017-07-16 07:15] LABS: Bedside Glucose 121 mg/dL (70-110)
--- NOTE | 2017-07-16 08:49 | PCM.PN.HOSP ---
Patient Problems: Active and Suspected Problems JERRY (acute kidney injury) (Acute) Dvt femoral (deep venous thrombosis) (Acute) Subjective: CC: Follow up on left leg DVT, he complains of nausea. Patient reports significant nausea he vomited 2 times. He reports no fever or chills, no chest pain shortness of breath or palpitations. Vitals/I&O's: Vital Signs Temp Pulse Resp BP Pulse Ox 97.6 F L 64 18 102/60 97 07/16/17 02:10 07/16/17 02:10 07/16/17 02:10 07/16/17 02:10 07/16/17 02:10 Oxygen Delivery Method Room Air Weight: 104.7 kg Body Mass Index (BMI) 28.8 Intake and Output for Last 24 Hours 07/14/17 07/15/17 07/16/17 23:59 23:59 23:59 Intake Total 2471 / 2471 1381 / 1381 700 / 700 Output Total 5200 / 5200 5350 / 5350 1675 / 1675 Balance -2729 / -2729 -3969 / -3969 -975 / -975 General: Alert, Oriented x3 Oral: Moist Mucosa Neck: Supple, No JVD Lungs: Clear to auscultation Cardiovascular: Regular rate, Normal S1, Normal S2 Abdomen: Bowel Sounds Present, Non Tender Extremities: No edema Neurological: Deep Tendon Reflexes 2+/4 and Symmetrical, Motor Exam 5/5 strength throughout Laboratory Results 07/15/17 11:16: POC Glucose 192 H 07/15/17 16:21: POC Glucose 165 H 07/15/17 20:43: POC Glucose 224 H 07/16/17 05:15: WBC 5.4, RBC 5.20, Hgb 17.2 H, Hct 47.8, MCV 91.9, MCH 33.1 H, MCHC 36.0, RDW 15.2 H, RDW Differential 50.0 H, Plt Count 100 L, MPV 10.2, Immature Gran % (Auto) 0.700, Neut % (Auto) 89.4 H, Lymph % (Auto) 5.6 L, [place] % (Auto) 4.1, Eos % (Auto) 0.0, Baso % (Auto) 0.2, Absolute Neuts (auto) 4.8, Absolute Lymphs (auto) 0.30 L, Total Counted Not Reportable, Differential Comment SCANNED, Toxic Granulation 1+ 07/16/17 05:15: Sodium 134 L, Potassium 4.1, Chloride 101, Carbon Dioxide 25.0, Anion Gap 8, BUN 57 H, Creatinine 1.50 H, Estim Creat Clear Calc 64.94, Est GFR (MDRD) Af Amer 62, Est GFR (MDRD) Non-Af 51 L, BUN/Creatinine Ratio 38.0 H, Glucose 126 H, Calcium 7.7 L 07/16/17 05:15: PT 14.8, INR 1.2, APTT 63.2 H 07/16/17 07:05: POC Glucose 121 H Current Medications Acetaminophen (Tylenol) 650 mg PO Q6H PRN PRN PRN Reason: Non-cardiac pain (mod-severe) Hydrocodone Bitart/Acetaminophen ([place] 5mg-325mg) 1 - 2 tablet PO Q6H PRN PRN PRN Reason: Moderate-severe pain Albuterol Sulfate (Ventolin Aerosols) 2.5 mg INHALATION Q2H PRN PRN PRN Reason: SOB &/OR WHEEZING Amiodarone HCl (Cordarone) 400 mg PO QHS [facility] Last Admin: 07/15/17 21:02 Dose: 400 mg [facility] Last Admin: 07/15/17 17:20 Dose: 4 mg Dextrose (D50w Syringe) 0 gm IV X1 PRN; Protocol PRN Reason: Hypoglycemia Digoxin (Lanoxin) 125 mcg PO SUMOWETHFR [facility] Last Admin: 07/15/17 08:07 Dose: 125 mcg Enoxaparin Sodium (Lovenox) 100 mg SC Q12@0600,1800 [facility] Glucagon () 1 mg IM .X1 PRN PRN Reason: Hypoglycemia Hydralazine HCl (Apresoline) 10 mg IV Q4H PRN PRN PRN Reason: SBP > 160 Sodium Chloride () 250 mls @ 15 mls/hr IV .[id number] PRN PRN Reason: SALINE FLUSH Insulin Aspart (Novolog Flexpen (Bk)) 0 units SC ACHS [facility] PRN Reason: Protocol Last Admin: 07/16/17 07:07 Dose: Not Given Insulin Detemir (Levemir (Bk)) 20 units SC BID [facility] Last Admin: 07/15/17 21:05 Dose: 20 u Levetiracetam (Keppra) 1,000 mg PO BID [facility] Last Admin: 07/15/17 21:07 Dose: 1,000 mg Metoprolol Succinate (Toprol Xl (Beta Karishma)) 50 mg PO QHS [facility] Last Admin: 07/15/17 20:59 Dose: 50 mg Morphine Sulfate (Morphine) 1 - 2 mg IV Q4H PRN PRN PRN Reason: PAIN Nutritional Formula (Lactose Free) (Glucerna Shake) 120 ml PO 4X/DAY [facility] Last Admin: 07/15/17 21:02 Dose: Not Given Nystatin (Nystatin) 500,000 unit PO 4X/DAY [facility] Last Admin: 07/15/17 20:58 Dose: 500,000 unit Ondansetron HCl (Zofran) 8 mg PO Q8H PRN PRN PRN Reason: NAUSEA Ondansetron HCl (Zofran) 4 mg IV Q8H PRN PRN PRN Reason: NAUSEA/VOMITING Last Admin: 07/16/17 03:24 Dose: 4 mg Pantoprazole Sodium (Protonix) 40 mg PO DAILY [facility] Last Admin: 07/15/17 08:06 Dose: 40 mg Sodium Chloride () 5 - 30 ml IV UD PRN PRN Reason: SALINE FLUSH Last Admin: 07/16/17 03:24 Dose: 20 ml Spironolactone (Aldactone) 25 mg PO DAILY [facility] Last Admin: 07/15/17 08:07 Dose: 25 mg Temazepam (Restoril) 15 mg PO QHS PRN PRN PRN Reason: insomnia Assessment/Plan Active and Suspected Problems JERRY (acute kidney injury) (Acute) Dvt femoral (deep venous thrombosis) (Acute) 1. Acute Left leg DVT; we continue on Lovenox. 2. Acute kidney injury; would hold off on Bumex, lisinopril and other nephrotoxic medications. He will be started on 0.9 normal saline. 3. Metastatic lung cancer to the brain; he presented with right-sided weakness, he is currently receiving Decadron with which is being tapered. He is on Keppra for seizure prevention. Physical and Occupational Therapy. 4. Chronic AF; he is on BB, digoxin and amiodarone. 5. Hypertension; controlled. 6. Nausea/ vomiting; will Check lipase, will check a digoxin level. He will be placed on antiemetics and PPI.
--- NOTE | 2017-07-16 08:54 | PN_ITS ---
Patient Problems: Active and Suspected Problems JERRY (acute kidney injury) (Acute) Dvt femoral (deep venous thrombosis) (Acute) Subjective: CC: Follow up on left leg DVT, he complains of nausea. Patient reports significant nausea he vomited 2 times. He reports no fever or chills, no chest pain shortness of breath or palpitations. Vitals/I&O's: Vital Signs Temp Pulse Resp BP Pulse Ox 97.6 F L 64 18 102/60 97 07/16/17 02:10 07/16/17 02:10 07/16/17 02:10 07/16/17 02:10 07/16/17 02:10 Oxygen Delivery Method Room Air Weight: 104.7 kg Body Mass Index (BMI) 28.8 Intake and Output for Last 24 Hours 07/14/17 07/15/17 07/16/17 23:59 23:59 23:59 Intake Total 2471 / 2471 1381 / 1381 700 / 700 Output Total 5200 / 5200 5350 / 5350 1675 / 1675 Balance -2729 / -2729 -3969 / -3969 -975 / -975 General: Alert, Oriented x3 Oral: Moist Mucosa Neck: Supple, No JVD Lungs: Clear to auscultation Cardiovascular: Regular rate, Normal S1, Normal S2 Abdomen: Bowel Sounds Present, Non Tender Extremities: No edema Neurological: Deep Tendon Reflexes 2+/4 and Symmetrical, Motor Exam 5/5 strength throughout Laboratory Results 07/15/17 11:16: POC Glucose 192 H 07/15/17 16:21: POC Glucose 165 H 07/15/17 20:43: POC Glucose 224 H 07/16/17 05:15: WBC 5.4, RBC 5.20, Hgb 17.2 H, Hct 47.8, MCV 91.9, MCH 33.1 H, MCHC 36.0, RDW 15.2 H, RDW Differential 50.0 H, Plt Count 100 L, MPV 10.2, Immature Gran % (Auto) 0.700, Neut % (Auto) 89.4 H, Lymph % (Auto) 5.6 L, [place] % (Auto) 4.1, Eos % (Auto) 0.0, Baso % (Auto) 0.2, Absolute Neuts (auto) 4.8, Absolute Lymphs (auto) 0.30 L, Total Counted Not Reportable, Differential Comment SCANNED, Toxic Granulation 1+ 07/16/17 05:15: Sodium 134 L, Potassium 4.1, Chloride 101, Carbon Dioxide 25.0, Anion Gap 8, BUN 57 H, Creatinine 1.50 H, Estim Creat Clear Calc 64.94, Est GFR (MDRD) Af Amer 62, Est GFR (MDRD) Non-Af 51 L, BUN/Creatinine Ratio 38.0 H, Glucose 126 H, Calcium 7.7 L 07/16/17 05:15: PT 14.8, INR 1.2, APTT 63.2 H 07/16/17 07:05: POC Glucose 121 H Current Medications Acetaminophen (Tylenol) 650 mg PO Q6H PRN PRN PRN Reason: Non-cardiac pain (mod-severe) Hydrocodone Bitart/Acetaminophen ([place] 5mg-325mg) 1 - 2 tablet PO Q6H PRN PRN PRN Reason: Moderate-severe pain Albuterol Sulfate (Ventolin Aerosols) 2.5 mg INHALATION Q2H PRN PRN PRN Reason: SOB &/OR WHEEZING Amiodarone HCl (Cordarone) 400 mg PO QHS [facility] Last Admin: 07/15/17 21:02 Dose: 400 mg [facility] Last Admin: 07/15/17 17:20 Dose: 4 mg Dextrose (D50w Syringe) 0 gm IV X1 PRN; Protocol PRN Reason: Hypoglycemia Digoxin (Lanoxin) 125 mcg PO SUMOWETHFR [facility] Last Admin: 07/15/17 08:07 Dose: 125 mcg Enoxaparin Sodium (Lovenox) 100 mg SC Q12@0600,1800 [facility] Glucagon () 1 mg IM .X1 PRN PRN Reason: Hypoglycemia Hydralazine HCl (Apresoline) 10 mg IV Q4H PRN PRN PRN Reason: SBP > 160 Sodium Chloride () 250 mls @ 15 mls/hr IV .[id number] PRN PRN Reason: SALINE FLUSH Insulin Aspart (Novolog Flexpen (Bk)) 0 units SC ACHS [facility] PRN Reason: Protocol Last Admin: 07/16/17 07:07 Dose: Not Given Insulin Detemir (Levemir (Bk)) 20 units SC BID [facility] Last Admin: 07/15/17 21:05 Dose: 20 u Levetiracetam (Keppra) 1,000 mg PO BID [facility] Last Admin: 07/15/17 21:07 Dose: 1,000 mg Metoprolol Succinate (Toprol Xl (Beta Karishma)) 50 mg PO QHS [facility] Last Admin: 07/15/17 20:59 Dose: 50 mg Morphine Sulfate (Morphine) 1 - 2 mg IV Q4H PRN PRN PRN Reason: PAIN Nutritional Formula (Lactose Free) (Glucerna Shake) 120 ml PO 4X/DAY [facility] Last Admin: 07/15/17 21:02 Dose: Not Given Nystatin (Nystatin) 500,000 unit PO 4X/DAY [facility] Last Admin: 07/15/17 20:58 Dose: 500,000 unit Ondansetron HCl (Zofran) 8 mg PO Q8H PRN PRN PRN Reason: NAUSEA Ondansetron HCl (Zofran) 4 mg IV Q8H PRN PRN PRN Reason: NAUSEA/VOMITING Last Admin: 07/16/17 03:24 Dose: 4 mg Pantoprazole Sodium (Protonix) 40 mg PO DAILY [facility] Last Admin: 07/15/17 08:06 Dose: 40 mg Sodium Chloride () 5 - 30 ml IV UD PRN PRN Reason: SALINE FLUSH Last Admin: 07/16/17 03:24 Dose: 20 ml Spironolactone (Aldactone) 25 mg PO DAILY [facility] Last Admin: 07/15/17 08:07 Dose: 25 mg Temazepam (Restoril) 15 mg PO QHS PRN PRN PRN Reason: insomnia Assessment/Plan Active and Suspected Problems JERRY (acute kidney injury) (Acute) Dvt femoral (deep venous thrombosis) (Acute) 1. Acute Left leg DVT; we continue on Lovenox. 2. Acute kidney injury; would hold off on Bumex, lisinopril and other nephrotoxic medications. He will be started on 0.9 normal saline. 3. Metastatic lung cancer to the brain; he presented with right-sided weakness , he is currently receiving Decadron with which is being tapered. He is on Keppra for seizure prevention. Physical and Occupational Therapy. 4. Chronic AF; he is on BB, digoxin and amiodarone. 5. Hypertension; controlled. 6. Nausea/ vomiting; will Check lipase, will check a digoxin level. He will be placed on antiemetics and PPI.
[2017-07-16 10:35] LABS: Digoxin Level 1.02 ng/mL (0.80-2.00)
[2017-07-16] MEDS: 0.9% Normal Saline 1,000 ML 50 ML IV ×2 (10:47→22:10)
[2017-07-16 12:41] LABS: Bedside Glucose 101 mg/dL (70-110)
--- NOTE | 2017-07-16 12:46 | NURSING ---
Patient continues to be nauseated. Zofran given. will reassess. still does not want to take daily meds at this time.
[2017-07-16 17:00] LABS: Bedside Glucose 99 mg/dL (70-110)
[2017-07-16] MEDS: levETIRAcetam 1,000 MG Tablet 1000 MG PO (17:15)
[2017-07-16] MEDS: Enoxaparin 100 MG/ML Syringe SC (17:15)
[2017-07-16 22:06] LABS: Bedside Glucose 78 mg/dL (70-110)
[2017-07-16] MEDS: Metoprolol(XL)Succ 50 MG Tablet PO (23:11)
[2017-07-16] MEDS: Amiodarone 200 MG Tablet 400 MG PO (23:11)
[2017-07-17] VITALS (10 sets, daily range): BP systolic 85–107; BP diastolic 52–74; PULSE 66–74; RESP 14–18; TEMP 36.8–37; O2SAT 93–96
[2017-07-17] MEDS: 0.9% NaCl Peripheral Flush Adult/Peds IV (05:18)
[2017-07-17] MEDS: Enoxaparin 100 MG/ML Syringe SC ×2 (05:19→17:19)
[2017-07-17 06:21] LABS: Bedside Glucose 78 mg/dL (70-110)
[2017-07-17 06:59] LABS: International Normalized Ratio 1.4; Prothrombin Time (Protime)PT. 16.9 SECONDS (11.7-14.9)
[2017-07-17 10:08] LABS: Anion Gap 11 (5-15); BUN 66 mg/dL (7-18); BUN/Creat Ratio 38.2 RATIO (10-20); Calcium,Total 7.5 mg/dL (8.5-10.1); Chloride 105 mmol/L (98-107); Creatinine, Serum 1.73 mg/dL (0.70-1.30); EST Glomerular Filtration Rate 44 mL/min (>60); Est Glom Filt Rate - Afr Amer 53 mL/min (>60); Estimated Creatinine Clearance 56.31 ml/min; Glucose 80 mg/dL (74-106); Potassium 3.7 mmol/L (3.5-5.1); Sodium Level 139 mmol/L (136-145)
[2017-07-17 10:46] LABS: Bedside Glucose 86 mg/dL (70-110)
[2017-07-17] MEDS: NYSTATIN 500,000 UNIT/5 ML UDC 500000 UNIT PO ×2 (10:49→14:03)
[2017-07-17] MEDS: Pantoprazole Sodium 40 MG Tablet PO (10:49)
[2017-07-17] MEDS: levETIRAcetam 1,000 MG Tablet 1000 MG PO ×2 (10:49→21:05)
[2017-07-17] MEDS: Digoxin 125 MCG Tablet PO (10:50)
[2017-07-17] MEDS: Glucerna Shake 120 ML LIQUID PO ×2 (14:08→21:05)
--- NOTE | 2017-07-17 14:32 | PCM.PN.HOSP ---
Patient Problems: Active and Suspected Problems JERRY (acute kidney injury) (Acute) Dvt femoral (deep venous thrombosis) (Acute) Subjective: CC: Follow up on left leg DVT, he complains of nausea. Patient reports his nausea is better today has not vomited. He reports no fever or chills, no chest pain shortness of breath or palpitations. Vitals/I&O's: Vital Signs Temp Pulse Resp BP Pulse Ox 98.6 F 74 16 99/63 96 07/17/17 13:08 07/17/17 13:08 07/17/17 13:08 07/17/17 13:08 07/17/17 13:08 Oxygen Delivery Method Room Air Weight: 104.7 kg Body Mass Index (BMI) 28.8 Intake and Output for Last 24 Hours 07/15/17 07/16/17 07/17/17 23:59 23:59 23:59 Intake Total 1381 / 1381 1806 / 1806 2011 Output Total 5350 / 5350 2125 / 2125 1120 / 1120 Balance -3969 / -3969 -319 / -319 892 / 892 Laboratory Results 07/16/17 16:07: POC Glucose 99 07/16/17 21:45: POC Glucose 78 07/17/17 05:21: POC Glucose 78 07/17/17 06:30: PT 16.9 H, INR 1.4 07/17/17 09:43: Sodium 139, Potassium 3.7, Chloride 105, Carbon Dioxide 23.0, Anion Gap 11, BUN 66 H, Creatinine 1.73 H, Estim Creat Clear Calc 56.31, Est GFR (MDRD) Af Amer 53 L, Est GFR (MDRD) Non-Af 44 L, BUN/Creatinine Ratio 38.2 H, Glucose 80, Calcium 7.5 L 07/17/17 10:41: POC Glucose 86 Current Medications Acetaminophen (Tylenol) 650 mg PO Q6H PRN PRN PRN Reason: Non-cardiac pain (mod-severe) Hydrocodone Bitart/Acetaminophen ([place] 5mg-325mg) 1 - 2 tablet PO Q6H PRN PRN PRN Reason: Moderate-severe pain Albuterol Sulfate (Ventolin Aerosols) 2.5 mg INHALATION Q2H PRN PRN PRN Reason: SOB &/OR WHEEZING Amiodarone HCl (Cordarone) 400 mg PO QHS [facility] Last Admin: 07/16/17 23:11 Dose: 400 mg Dexamethasone (Decadron) 4 mg PO BIDCM [facility] Last Admin: 07/17/17 08:21 Dose: 4 mg Dextrose (D50w Syringe) 0 gm IV X1 PRN; Protocol PRN Reason: Hypoglycemia Digoxin (Lanoxin) 125 mcg PO SUMOWETHFR [facility] Last Admin: 07/17/17 10:50 Dose: 125 mcg Enoxaparin Sodium (Lovenox) 100 mg SC Q12@0600,1800 [facility] Last Admin: 07/17/17 05:19 Dose: 100 mg Glucagon () 1 mg IM .X1 PRN PRN Reason: Hypoglycemia Hydralazine HCl (Apresoline) 10 mg IV Q4H PRN PRN PRN Reason: SBP > 160 Sodium Chloride () 250 mls @ 15 mls/hr IV .[id number] PRN PRN Reason: SALINE FLUSH Sodium Chloride () 1,000 mls @ 50 mls/hr IV .Q20H [facility] Last Admin: 07/16/17 22:10 Dose: 50 mls/hr Insulin Aspart (Novolog Flexpen (Bkc)) 0 units SC ACHS [facility] PRN Reason: Protocol Last Admin: 07/17/17 10:43 Dose: Not Given Insulin Detemir (Levemir (Bkc)) 20 units SC BID [facility] Last Admin: 07/17/17 10:43 Dose: Not Given Levetiracetam (Keppra) 1,000 mg PO BID [facility] Last Admin: 07/17/17 10:49 Dose: 1,000 mg Metoprolol Succinate (Toprol Xl (Beta Karishma)) 50 mg PO QHS [facility] Last Admin: 07/16/17 23:11 Dose: 50 mg Morphine Sulfate (Morphine) 1 - 2 mg IV Q4H PRN PRN PRN Reason: PAIN Nutritional Formula (Lactose Free) (Glucerna Shake) 120 ml PO 4X/DAY [facility] Last Admin: 07/17/17 14:08 Dose: 120 ml Nystatin (Nystatin) 500,000 unit PO 4X/DAY [facility] Last Admin: 07/17/17 14:03 Dose: 500,000 unit Ondansetron HCl (Zofran) 4 mg IV Q6H PRN PRN PRN Reason: NAUSEA/VOMITING Last Admin: 07/16/17 12:39 Dose: 4 mg Pantoprazole Sodium (Protonix) 40 mg PO DAILY [facility] Last Admin: 07/17/17 10:49 Dose: 40 mg Sodium Chloride () 5 - 30 ml IV UD PRN PRN Reason: SALINE FLUSH Last Admin: 07/17/17 05:18 Dose: 20 ml Spironolactone (Aldactone) 25 mg PO DAILY [facility] Last Admin: 07/17/17 11:30 Dose: Not Given Temazepam (Restoril) 15 mg PO QHS PRN PRN PRN Reason: insomnia Assessment/Plan Active and Suspected Problems JERRY (acute kidney injury) (Acute) Dvt femoral (deep venous thrombosis) (Acute) 1. Acute Left leg DVT; we will continue on Lovenox. 2. Acute kidney injury; continue gentle hydration. 3. Metastatic lung cancer to the brain; he presented with right-sided weakness, he is currently receiving Decadron with which is being tapered. He is on Keppra for seizure prevention. Physical and Occupational Therapy. he is a Full code. 4. Chronic AF; he is on BB, digoxin and amiodarone. Digoxin level is normal. 5. Hypertension; controlled. 6. Nausea/ vomiting; will Check lipase, will check a digoxin level. He will be placed on antiemetics and PPI. Code Visit Inpatient E&M: 51651 Subs Hosp L2
--- NOTE | 2017-07-17 14:35 | PN_ITS ---
Patient Problems: Active and Suspected Problems JERRY (acute kidney injury) (Acute) Dvt femoral (deep venous thrombosis) (Acute) Subjective: CC: Follow up on left leg DVT, he complains of nausea. Patient reports his nausea is better today has not vomited. He reports no fever or chills, no chest pain shortness of breath or palpitations. Vitals/I&O's: Vital Signs Temp Pulse Resp BP Pulse Ox 98.6 F 74 16 99/63 96 07/17/17 13:08 07/17/17 13:08 07/17/17 13:08 07/17/17 13:08 07/17/17 13:08 Oxygen Delivery Method Room Air Weight: 104.7 kg Body Mass Index (BMI) 28.8 Intake and Output for Last 24 Hours 07/15/17 07/16/17 07/17/17 23:59 23:59 23:59 Intake Total 1381 / 1381 1806 / 1806 2011 Output Total 5350 / 5350 2125 / 2125 1120 / 1120 Balance -3969 / -3969 -319 / -319 892 / 892 Laboratory Results 07/16/17 16:07: POC Glucose 99 07/16/17 21:45: POC Glucose 78 07/17/17 05:21: POC Glucose 78 07/17/17 06:30: PT 16.9 H, INR 1.4 07/17/17 09:43: Sodium 139, Potassium 3.7, Chloride 105, Carbon Dioxide 23.0, Anion Gap 11, BUN 66 H, Creatinine 1.73 H, Estim Creat Clear Calc 56.31, Est GFR (MDRD) Af Amer 53 L, Est GFR (MDRD) Non-Af 44 L, BUN/Creatinine Ratio 38.2 H , Glucose 80, Calcium 7.5 L 07/17/17 10:41: POC Glucose 86 Current Medications Acetaminophen (Tylenol) 650 mg PO Q6H PRN PRN PRN Reason: Non-cardiac pain (mod-severe) Hydrocodone Bitart/Acetaminophen (Page 5mg-325mg) 1 - 2 tablet PO Q6H PRN PRN PRN Reason: Moderate-severe pain Albuterol Sulfate (Ventolin Aerosols) 2.5 mg INHALATION Q2H PRN PRN PRN Reason: SOB &/OR WHEEZING Amiodarone HCl (Cordarone) 400 mg PO QHS [facility] Last Admin: 07/16/17 23:11 Dose: 400 mg Dexamethasone (Decadron) 4 mg PO BIDCM [facility] Last Admin: 07/17/17 08:21 Dose: 4 mg Dextrose (D50w Syringe) 0 gm IV X1 PRN; Protocol PRN Reason: Hypoglycemia Digoxin (Lanoxin) 125 mcg PO SUMOWETHFR [facility] Last Admin: 07/17/17 10:50 Dose: 125 mcg Enoxaparin Sodium (Lovenox) 100 mg SC Q12@0600,1800 [facility] Last Admin: 07/17/17 05:19 Dose: 100 mg Glucagon () 1 mg IM .X1 PRN PRN Reason: Hypoglycemia Hydralazine HCl (Apresoline) 10 mg IV Q4H PRN PRN PRN Reason: SBP > 160 Sodium Chloride () 250 mls @ 15 mls/hr IV .[id number] PRN PRN Reason: SALINE FLUSH Sodium Chloride () 1,000 mls @ 50 mls/hr IV .Q20H [facility] Last Admin: 07/16/17 22:10 Dose: 50 mls/hr Insulin Aspart (Novolog Flexpen (Bkc)) 0 units SC ACHS [facility] PRN Reason: Protocol Last Admin: 07/17/17 10:43 Dose: Not Given Insulin Detemir (Levemir (Bkc)) 20 units SC BID [facility] Last Admin: 07/17/17 10:43 Dose: Not Given Levetiracetam (Keppra) 1,000 mg PO BID [facility] Last Admin: 07/17/17 10:49 Dose: 1,000 mg Metoprolol Succinate (Toprol Xl (Beta Karishma)) 50 mg PO QHS [facility] Last Admin: 07/16/17 23:11 Dose: 50 mg Morphine Sulfate (Morphine) 1 - 2 mg IV Q4H PRN PRN PRN Reason: PAIN Nutritional Formula (Lactose Free) (Glucerna Shake) 120 ml PO 4X/DAY [facility] Last Admin: 07/17/17 14:08 Dose: 120 ml Nystatin (Nystatin) 500,000 unit PO 4X/DAY [facility] Last Admin: 07/17/17 14:03 Dose: 500,000 unit Ondansetron HCl (Zofran) 4 mg IV Q6H PRN PRN PRN Reason: NAUSEA/VOMITING Last Admin: 07/16/17 12:39 Dose: 4 mg Pantoprazole Sodium (Protonix) 40 mg PO DAILY [facility] Last Admin: 07/17/17 10:49 Dose: 40 mg Sodium Chloride () 5 - 30 ml IV UD PRN PRN Reason: SALINE FLUSH Last Admin: 07/17/17 05:18 Dose: 20 ml Spironolactone (Aldactone) 25 mg PO DAILY [facility] Last Admin: 07/17/17 11:30 Dose: Not Given Temazepam (Restoril) 15 mg PO QHS PRN PRN PRN Reason: insomnia Assessment/Plan Active and Suspected Problems JERRY (acute kidney injury) (Acute) Dvt femoral (deep venous thrombosis) (Acute) 1. Acute Left leg DVT; we will continue on Lovenox. 2. Acute kidney injury; continue gentle hydration. 3. Metastatic lung cancer to the brain; he presented with right-sided weakness , he is currently receiving Decadron with which is being tapered. He is on Keppra for seizure prevention. Physical and Occupational Therapy. he is a Full code. 4. Chronic AF; he is on BB, digoxin and amiodarone. Digoxin level is normal. 5. Hypertension; controlled. 6. Nausea/ vomiting; will Check lipase, will check a digoxin level. He will be placed on antiemetics and PPI. Code Visit Inpatient E&M: 61281 Subs Hosp L2
[2017-07-17] MEDS: 0.9% Normal Saline 1,000 ML 50 ML IV (17:18)
[2017-07-17 17:20] LABS: Bedside Glucose 92 mg/dL (70-110)
[2017-07-17] MEDS: Amiodarone 200 MG Tablet 400 MG PO (21:05)
[2017-07-17] MEDS: Metoprolol(XL)Succ 50 MG Tablet PO (21:05)
[2017-07-17 21:21] LABS: Bedside Glucose 98 mg/dL (70-110)
[2017-07-18 02:44] VITALS: BP 100/52; PULSE 75; RESP 16; RESP 18; TEMP 36.8; O2SAT 95
[2017-07-18 06:45] LABS: International Normalized Ratio 1.5; Prothrombin Time (Protime)PT. 17.7 SECONDS (11.7-14.9)
[2017-07-18] MEDS: Enoxaparin 100 MG/ML Syringe SC ×2 (07:33→17:38)
[2017-07-18 07:56] LABS: Bedside Glucose 114 mg/dL (70-110)
[2017-07-18 08:31] VITALS: BP 80/54; PULSE 68; RESP 20; TEMP 36.4; O2SAT 96
[2017-07-18] MEDS: levETIRAcetam 1,000 MG Tablet 1000 MG PO ×2 (08:44→22:01)
[2017-07-18 08:45] VITALS: BP 80/54; PULSE 68
[2017-07-18] MEDS: Digoxin 125 MCG Tablet PO (08:45)
[2017-07-18] MEDS: Pantoprazole Sodium 40 MG Tablet PO (08:46)
[2017-07-18] MEDS: NYSTATIN 500,000 UNIT/5 ML UDC 500000 UNIT PO ×3 (08:46→17:38)
[2017-07-18 11:21] LABS: Bedside Glucose 126 mg/dL (70-110)
[2017-07-18] MEDS: Menthol/Lanolin/Calamine/Znox 113 GM Tube 1 APPLIC TOPICAL ×2 (13:45→22:01)
[2017-07-18] MEDS: 0.9% Normal Saline 1,000 ML 50 ML IV (13:46)
[2017-07-18 13:47] VITALS: BP 96/66; RESP 20; TEMP 36.9; O2SAT 94
[2017-07-18 15:51] LABS: Anion Gap 9 (5-15); BUN 59 mg/dL (7-18); Calcium,Total 7.4 mg/dL (8.5-10.1); Chloride 104 mmol/L (98-107); Creatinine, Serum 1.34 mg/dL (0.70-1.30); EST Glomerular Filtration Rate 58 mL/min (>60); Est Glom Filt Rate - Afr Amer 71 mL/min (>60); Estimated Creatinine Clearance 72.69 ml/min; Glucose 101 mg/dL (74-106); Potassium 3.9 mmol/L (3.5-5.1); Sodium Level 135 mmol/L (136-145)
[2017-07-18 16:46] LABS: Bedside Glucose 87 mg/dL (70-110)
--- NOTE | 2017-07-18 17:21 | PCM.PN.HOSP ---
Patient Problems: Active and Suspected Problems JERRY (acute kidney injury) (Acute) Dvt femoral (deep venous thrombosis) (Acute) Subjective: C: Follow up on left leg DVT, he complains of nausea. Patient reports his nausea is better today has not vomited. He reports no fever or chills, no chest pain shortness of breath or palpitations. No Acute events reported overnight. Vitals/I&O's: Vital Signs Temp Pulse Resp BP Pulse Ox 98.4 F 68 20 H 96/66 94 07/18/17 13:47 07/18/17 08:45 07/18/17 13:47 07/18/17 13:47 07/18/17 13:47 Oxygen Delivery Method Room Air Weight: 104.7 kg Body Mass Index (BMI) 28.8 Intake and Output for Last 24 Hours 07/16/17 07/17/17 07/18/17 23:59 23:59 23:59 Intake Total 1806 / 1806 2904 / 2904 919 / 919 Output Total 2125 / 2125 1620 / 1620 375 / 375 Balance -319 / -319 1284 / 1284 544 / 544 General: Alert, Oriented x3 HEENT: Atraumatic Oral: Moist Mucosa Neck: Supple, No JVD Lungs: Clear to auscultation Cardiovascular: Regular rate, Normal S1, Normal S2 Abdomen: Bowel Sounds Present, Soft, Non Tender Extremities: No clubbing Skin: No rashes Neurological: Deep Tendon Reflexes 2+/4 and Symmetrical, Motor Exam 5/5 strength throughout Laboratory Results 07/17/17 20:59: POC Glucose 98 07/18/17 06:30: PT 17.7 H, INR 1.5 07/18/17 07:25: POC Glucose 114 H 07/18/17 11:07: POC Glucose 126 H 07/18/17 15:00: Sodium 135 L, Potassium 3.9, Chloride 104, Carbon Dioxide 22.0, Anion Gap 9, BUN 59 H, Creatinine 1.34 H, Estim Creat Clear Calc 72.69, Est GFR (MDRD) Af Amer 71, Est GFR (MDRD) Non-Af 58 L, BUN/Creatinine Ratio 44.0 H, Glucose 101, Calcium 7.4 L 07/18/17 16:38: POC Glucose 87 Current Medications Acetaminophen (Tylenol) 650 mg PO Q6H PRN PRN PRN Reason: Non-cardiac pain (mod-severe) Hydrocodone Bitart/Acetaminophen ([place] 5mg-325mg) 1 - 2 tablet PO Q6H PRN PRN PRN Reason: Moderate-severe pain Albuterol Sulfate (Ventolin Aerosols) 2.5 mg INHALATION Q2H PRN PRN PRN Reason: SOB &/OR WHEEZING Amiodarone HCl (Cordarone) 400 mg PO QHS [facility] Last Admin: 07/17/17 21:05 Dose: 400 mg Calamine/Phenol (Calmoseptine Ointment) 1 applic TOPICAL TID [facility] PRN Reason: Protocol Last Admin: 07/18/17 13:45 Dose: 1 applicatio Dexamethasone (Decadron) 4 mg PO BIDCM [facility] Last Admin: 07/18/17 16:42 Dose: 4 mg Dextrose (D50w Syringe) 0 gm IV X1 PRN; Protocol PRN Reason: Hypoglycemia Digoxin (Lanoxin) 125 mcg PO SUMOWETHFR [facility] Last Admin: 07/18/17 08:45 Dose: 125 mcg Enoxaparin Sodium (Lovenox) 100 mg SC Q12@0600,1800 [facility] Last Admin: 07/18/17 07:33 Dose: 100 mg Glucagon () 1 mg IM .X1 PRN PRN Reason: Hypoglycemia Sodium Chloride () 250 mls @ 15 mls/hr IV .[id number] PRN PRN Reason: SALINE FLUSH Sodium Chloride () 1,000 mls @ 50 mls/hr IV .Q20H [facility] Last Admin: 07/18/17 13:46 Dose: 50 mls/hr Insulin Aspart (Novolog Flexpen (Bk)) 0 units SC ACHS [facility] PRN Reason: Protocol Last Admin: 07/18/17 16:42 Dose: Not Given Insulin Detemir (Levemir (Bkc)) 20 units SC BID [facility] Last Admin: 07/18/17 08:47 Dose: 20 u Levetiracetam (Keppra) 1,000 mg PO BID [facility] Last Admin: 07/18/17 08:44 Dose: 1,000 mg Morphine Sulfate (Morphine) 1 - 2 mg IV Q4H PRN PRN PRN Reason: PAIN Nutritional Formula (Lactose Free) (Glucerna Shake) 120 ml PO 4X/DAY [facility] Last Admin: 07/18/17 13:46 Dose: Not Given Nystatin (Nystatin) 500,000 unit PO 4X/DAY [facility] Last Admin: 07/18/17 13:46 Dose: 500,000 unit Ondansetron HCl (Zofran) 4 mg IV Q6H PRN PRN PRN Reason: NAUSEA/VOMITING Last Admin: 07/16/17 12:39 Dose: 4 mg Pantoprazole Sodium (Protonix) 40 mg PO DAILY [facility] Last Admin: 07/18/17 08:46 Dose: 40 mg Sodium Chloride () 5 - 30 ml IV UD PRN PRN Reason: SALINE FLUSH Last Admin: 07/17/17 05:18 Dose: 20 ml Spironolactone (Aldactone) 25 mg PO DAILY [facility] Last Admin: 07/18/17 08:44 Dose: Not Given Temazepam (Restoril) 15 mg PO QHS PRN PRN PRN Reason: insomnia Assessment/Plan Active and Suspected Problems JERRY (acute kidney injury) (Acute) Dvt femoral (deep venous thrombosis) (Acute) 1. Acute Left leg DVT; we will continue on Lovenox. 2. Acute kidney injury; renal parameters are improving, we will continue gentle hydration. 3. Metastatic lung cancer to the brain; he presented with right-sided weakness, he is currently receiving Decadron with which is being tapered. He is on Keppra for seizure prevention. Physical and Occupational Therapy. he is a Full code. 4. Chronic AF; he is on BB, digoxin and amiodarone. Digoxin level is normal. 5. Hypertension; controlled. 6. Nausea/ vomiting; improved, continue anti emetics, I will place on PPI. Code Visit Inpatient E&M: [id number] Subs Hosp L2
[2017-07-18 18:59] LABS: Magnesium 2.2 mg/dL (1.6-2.6)
[2017-07-18 20:59] VITALS: BP 115/66; PULSE 66; RESP 18; TEMP 36.5; O2SAT 95
[2017-07-18] MEDS: Amiodarone 200 MG Tablet 400 MG PO (22:01)
[2017-07-18 22:11] LABS: Bedside Glucose 89 mg/dL (70-110)
[2017-07-19 02:42] VITALS: BP 102/64; PULSE 67; RESP 16; TEMP 36.7; O2SAT 97
[2017-07-19] MEDS: Enoxaparin 100 MG/ML Syringe SC ×2 (06:32→18:58)
[2017-07-19] MEDS: Menthol/Lanolin/Calamine/Znox 113 GM Tube 1 APPLIC TOPICAL ×3 (06:33→21:50)
[2017-07-19 06:51] LABS: Bedside Glucose 86 mg/dL (70-110)
[2017-07-19 09:25] VITALS: BP 103/63; PULSE 86; RESP 18; TEMP 36.5; O2SAT 95
[2017-07-19 09:26] VITALS: PULSE 86
[2017-07-19] MEDS: Pantoprazole Sodium 40 MG Tablet PO (09:26)
[2017-07-19] MEDS: Digoxin 125 MCG Tablet PO (09:26)
[2017-07-19] MEDS: levETIRAcetam 1,000 MG Tablet 1000 MG PO ×2 (09:26→21:52)
[2017-07-19] MEDS: Spironolactone 25 MG Tablet PO (09:26)
[2017-07-19] MEDS: NYSTATIN 500,000 UNIT/5 ML UDC 500000 UNIT PO ×2 (09:27→21:51)
--- NOTE | 2017-07-19 11:05 | PN_ITS ---
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 Complaining of left leg swelling and pain and was subsequently diagnosed with acute left leg DVT, he is now receiving subcutaneous Lovenox. Patient remains significantly weak, he declined ECF placement , we also recommended palliative care and hospice but he still remains a full code. Vitals/I&O's: Vital Signs Temp Pulse Resp BP Pulse Ox 97.7 F L 86 18 103/63 95 07/19/17 09:25 07/19/17 09:26 07/19/17 09:25 07/19/17 09:25 07/19/17 09:25 Oxygen Delivery Method Room Air Weight: 104.7 kg Body Mass Index (BMI) 28.8 Intake and Output for Last 24 Hours 07/17/17 07/18/17 07/19/17 23:59 23:59 23:59 Intake Total 2904 / 2904 1039 / 1039 1832 / 1832 Output Total 1620 / 1620 825 / 825 300 / 300 Balance 1284 / 1284 214 / 214 1532 / 1532 General: Alert, Oriented x3 Oral: Moist Mucosa Neck: Supple, No JVD Lungs: Clear to auscultation, No wheeze, No rales Cardiovascular: Regular rate, Normal S1, Normal S2 Abdomen: Bowel Sounds Present, Non Tender Extremities: No clubbing, No cyanosis, No edema Neurological: Cranial nerves II-XII grossly intact, Neuro grossly intact, Motor Exam 5/5 strength throughout Psych/Mental Status: Normal Affect Laboratory Results 07/18/17 11:07: POC Glucose 126 H 07/18/17 15:00: Sodium 135 L, Potassium 3.9, Chloride 104, Carbon Dioxide 22.0, Anion Gap 9, BUN 59 H, Creatinine 1.34 H, Estim Creat Clear Calc 72.69, Est GFR (MDRD) Af Amer 71, Est GFR (MDRD) Non-Af 58 L, BUN/Creatinine Ratio 44.0 H, Glucose 101, Calcium 7.4 L 07/18/17 16:38: POC Glucose 87 07/18/17 17:40: Magnesium 2.2 07/18/17 17:40: Ionized Calcium Pending 07/18/17 21:58: POC Glucose 89 07/19/17 06:31: POC Glucose 86 Current Medications Acetaminophen (Tylenol) 650 mg PO Q6H PRN PRN PRN Reason: Non-cardiac pain (mod-severe) Hydrocodone Bitart/Acetaminophen ([place] 5mg-325mg) 1 - 2 tablet PO Q6H PRN PRN PRN Reason: Moderate-severe pain Albuterol Sulfate (Ventolin Aerosols) 2.5 mg INHALATION Q2H PRN PRN PRN Reason: SOB &/OR WHEEZING Amiodarone HCl (Cordarone) 400 mg PO QHS [facility] Last Admin: 07/18/17 22:01 Dose: 400 mg Calamine/Phenol (Calmoseptine Ointment) 1 applic TOPICAL TID [facility] PRN Reason: Protocol Last Admin: 07/19/17 06:33 Dose: 1 applicatio Dexamethasone (Decadron) 4 mg PO BIDCM [facility] Last Admin: 07/19/17 09:26 Dose: 4 mg Dextrose (D50w Syringe) 0 gm IV X1 PRN; Protocol PRN Reason: Hypoglycemia Digoxin (Lanoxin) 125 mcg PO SUMOWETHFR [facility] Last Admin: 07/19/17 09:26 Dose: 125 mcg Enoxaparin Sodium (Lovenox) 100 mg SC Q12@0600,1800 [facility] Last Admin: 07/19/17 06:32 Dose: 100 mg Glucagon () 1 mg IM .X1 PRN PRN Reason: Hypoglycemia Sodium Chloride () 250 mls @ 15 mls/hr IV .[id number] PRN PRN Reason: SALINE FLUSH Sodium Chloride () 1,000 mls @ 50 mls/hr IV .Q20H [facility] Last Admin: 07/18/17 13:46 Dose: 50 mls/hr Insulin Aspart (Novolog Flexpen (Bkc)) 0 units SC ACHS [facility] PRN Reason: Protocol Last Admin: 07/19/17 06:33 Dose: Not Given Insulin Detemir (Levemir (Bkc)) 20 units SC BID [facility] Last Admin: 07/19/17 09:27 Dose: 20 u Levetiracetam (Keppra) 1,000 mg PO BID [facility] Last Admin: 07/19/17 09:26 Dose: 1,000 mg Morphine Sulfate (Morphine) 1 - 2 mg IV Q4H PRN PRN PRN Reason: PAIN Nutritional Formula (Lactose Free) (Glucerna Shake) 120 ml PO 4X/DAY [facility] Last Admin: 07/19/17 08:36 Dose: Not Given Nystatin (Nystatin) 500,000 unit PO 4X/DAY [facility] Last Admin: 07/19/17 09:27 Dose: 500,000 unit Ondansetron HCl (Zofran) 4 mg IV Q6H PRN PRN PRN Reason: NAUSEA/VOMITING Last Admin: 07/16/17 12:39 Dose: 4 mg Pantoprazole Sodium (Protonix) 40 mg PO DAILY [facility] Last Admin: 07/19/17 09:26 Dose: 40 mg Sodium Chloride () 5 - 30 ml IV UD PRN PRN Reason: SALINE FLUSH Last Admin: 07/17/17 05:18 Dose: 20 ml Spironolactone (Aldactone) 25 mg PO DAILY [facility] Last Admin: 07/19/17 09:26 Dose: 25 mg Temazepam (Restoril) 15 mg PO QHS PRN PRN PRN Reason: insomnia Assessment/Plan Active and Suspected Problems JERRY (acute kidney injury) (Acute) Dvt femoral (deep venous thrombosis) (Acute) 1. Acute Left leg DVT; we will continue on therapeutic dose of Lovenox. 2. Acute kidney injury; renal parameters have improved, oral intake has also improved and will discontinue IV fluids. 3. Metastatic lung cancer to the brain; he presented with right-sided weakness , he is currently receiving Decadron with which is being tapered. He is on Keppra for seizure prevention. he is undergoing Physical and Occupational Therapy. 4. Chronic AF; he is on BB, digoxin and amiodarone. Digoxin level is normal. 5. Hypertension; now hypotensive and we discontinue all antihypertensive medications. 6. Nausea/ vomiting; improved, continue anti emetics, will continue on PPI. 7. Deconditioning due to medical illness; the patient is recommended to continue physical and occupational therapy at the retirement but he declined placement. Code Visit Inpatient E&M: 79702 Subs Hosp L2
[2017-07-19] MEDS: 0.9% Normal Saline 1,000 ML 50 ML IV (11:19)
[2017-07-19 11:37] LABS: Bedside Glucose 103 mg/dL (70-110)
--- NOTE | 2017-07-19 12:10 | CASEMGMT ---
Social Work Physician stating pt ready for d/c today or tomorrow. SW met with pt in the room. Discussed with pt living will and health care POA. SW explained what both documents are and that SW can assist with completing these documents. Pt stating that he has previously completed both a LW and HCPOA with an insurance attorney and does not need to complete at this time. Per pt, Azra is HCPOA. Pt states documents have been provided to [facility] however, documents not in the EMR. Discharge discussed and pt states he is planning on returning home and talked to doctor that tomorrow would be best as pt sister has and her is today and family is currently at the . SW discussed with pt ability to return home. Pt states his brother in laws are installing a ramp into home and that bed is on the first floor and pt feels he can return home in 's SUV. At this time OT entered the room. OT explained to pt and SW that pt was not able to complete stand pivot transfer yesterday and ability to transfer into SUV is unlikely. SW explained that ambulance transport could be arranged however pt continues to be resistant to this. Pt states his brother in laws can assist with getting pt into home. Also discussed with pt need for hospital bed and home health. Pt denies need for hospital bed and defers to for home health services. Pt stating that his sister's is today and his is currently there and will be in later today. Pt agreed to work with therapy today to determine his mobility to return home. SW will meet with pt today when she arrives to discuss d/c plan. CRUZITO Garza
[2017-07-19 14:30] VITALS: BP 104/69; PULSE 66; RESP 16; TEMP 36.5; O2SAT 97
--- NOTE | 2017-07-19 15:47 | CASEMGMT ---
Social Work Pt has not been in to visit pt. Phone call placed to pt and SW explained that physician plans to d/c pt tomorrow. Discussed d/c options with including home and SNF. SW explained to pt that pt is Max A x2 for bed mobility and Min A x2 for sit to stand. Pt was able to stand for 1 minute today. Pt did state that she is somewhat nervous to be alone with the patient due to level of care and inquired about SNF placement. SW explained insurance coverage at a SNF and provided list of in network facilities. states she will consider [facility] but is non committal as she would like to talk to her family. SW called Deepti at [facility] and beds are available. Referral faxed. SW will await determination if [facility] can accept and will then notify for final decision. CRUZITO Garza
--- NOTE | 2017-07-19 16:47 | CASEMGMT ---
Social Work Call to Deepti at [facility] to confirm if they can accept. Message left. Phone call to pt to finalize plans. Pt is leaning toward placement at [facility] however she plans to come to see pt tonight after her sister in laws services and make final decision. Emotional support provided to pt as pt sister this week and services are tonight and tomorrow and is in charge of this as well as trying to make decisions for pt. Pt will speak with pt this evening and call MAX Pace tomorrow morning with final decision of [facility] or home. Phone call to Yina at pt insurance and explained that [facility] has not yet confirmed they can accept pt. Yina will be available to process precert until 5pm. If [facility] does not submit precert request prior to this, precert will be obtained on Saturday. MAX placed second call to [facility] and spoke to Paula. Provided her with phone number of Yina at pt insurance. [facility] states facility has not yet decided if they can accept pt due to possible continuation of radiation or chemotherapy. Phone call placed to Dr. Church office to determine course of treatment and no answer. MAX spoke with pt and he states he has not had chemo for several months and did have radiation in June 2017 but pt is under the impression that no further radiation treatments are planned. This information is provided to Deepti. At this time precert can not be obtained. Plan: to talk to family and pt tonight and determine d/c plan home vs. SNF by tomorrow morning. not notified that [facility] has not yet approved and precert not obtained as is currently at Sister in laws . If pt and choose SNF, [facility] will reevaluate on Saturday for appropriateness pending Dr. Church's plan for treatment. If and pt plan for home, possible d/c planned for tomorrow. MAX will continue to follow. CRUZITO Garza
[2017-07-19 17:21] LABS: Bedside Glucose 118 mg/dL (70-110)
[2017-07-19 20:01] VITALS: BP 113/67; PULSE 67; RESP 16; TEMP 36.7; O2SAT 99
[2017-07-19] MEDS: Nystatin Powder 15gm Bottle 1 APPLIC TOPICAL (21:51)
[2017-07-19] MEDS: Amiodarone 200 MG Tablet 400 MG PO (21:52)
[2017-07-19] MEDS: 0.9% NaCl Peripheral Flush Adult/Peds IV (21:57)
[2017-07-20 02:20] VITALS: BP 112/69; PULSE 59; RESP 14; TEMP 36.6; O2SAT 97
[2017-07-20] MEDS: Menthol/Lanolin/Calamine/Znox 113 GM Tube 1 APPLIC TOPICAL ×3 (06:33→21:39)
[2017-07-20] MEDS: Enoxaparin 100 MG/ML Syringe SC ×2 (06:34→17:42)
[2017-07-20 06:41] LABS: Bedside Glucose 107 mg/dL (70-110)
--- NOTE | 2017-07-20 07:01 | NURSING ---
This nurse had 20 minute conversation with Gilberto, brother to patient. Gilberto works for [employer]. Gilberto expressed concerns about patient returning home. Stated house has 3 steps in with no ramp access. He also stated the house is not set up. He is concerned that Azra, , may not be able to care fully for patient without extra muscle. He fears her or the patient becoming injured as a result of a bad transfer. Gilberto asked how patient moved with therapy, I stated that the notes showed he had stood for 1 minute at bedside. This also worried Gilberto, because he did not know if patient could even get into/out of wheelchair. Gilberto was asking questions regarding hospice/palliative care and stated other family is on his side and working on Azra about discharge planning options. Gilberto stated I just want him to stay here at least 1 more night. Explained to him about [facility] and he is very much for this option and that he would prefer this or hospice over home health He also stated the was this AM for the patient's sister. He stated Chevy and his sister were very close. I advised Gilberto as to when social workers/case management comes into hospital and he stated he would be back in an hour.
[2017-07-20 08:08] VITALS: BP 104/70; PULSE 66; RESP 16; TEMP 36.5; O2SAT 97
[2017-07-20 08:11] VITALS: PULSE 70
[2017-07-20] MEDS: Pantoprazole Sodium 40 MG Tablet PO (08:22)
[2017-07-20] MEDS: Spironolactone 25 MG Tablet PO (09:47)
[2017-07-20] MEDS: Nystatin Powder 15gm Bottle 1 APPLIC TOPICAL ×2 (09:48→21:39)
[2017-07-20] MEDS: levETIRAcetam 1,000 MG Tablet 1000 MG PO ×2 (09:48→21:48)
[2017-07-20] MEDS: NYSTATIN 500,000 UNIT/5 ML UDC 500000 UNIT PO ×2 (09:48→13:57)
[2017-07-20 11:41] LABS: Bedside Glucose 146 mg/dL (70-110)
--- NOTE | 2017-07-20 11:48 | CASEMGMT ---
Social Work Note VM from pt's requesting a return phone call. Placed call to Azra and also had to leave a vm requesting a return phone call in regards to what the discharge plan would be. SW to continue to follow and assist with discharge planning. Kelly Bennett, RN BIRTHING, [employer]
--- NOTE | 2017-07-20 12:55 | PN_ITS ---
Patient Problems: Active and Suspected Problems JERRY (acute kidney injury) (Acute) Dvt femoral (deep venous thrombosis) (Acute) Subjective: Patient was seen and examined. No acute events. denies any complains. Objective: General: Alert, Oriented x3, obes, pale, not jaundiced Oral: Moist Mucosa Neck: Supple, No JVD Lungs: Clear to auscultation, No wheeze, No rales Cardiovascular: Regular rate, Normal S1, Normal S2 Abdomen: Bowel Sounds Present, Non Tender Extremities: No clubbing, No cyanosis, No edema Neurological: Cranial nerves II-XII grossly intact, Neuro grossly intact, Motor Exam 5/5 strength throughout Psych/Mental Status: Normal Affect Vitals/I&O's: Vital Signs Temp Pulse Resp BP Pulse Ox 97.7 F L 70 16 104/70 97 07/20/17 08:08 07/20/17 08:11 07/20/17 08:08 07/20/17 08:08 07/20/17 08:08 Oxygen Delivery Method Room Air Weight: 104.7 kg Body Mass Index (BMI) 28.8 Intake and Output for Last 24 Hours 07/18/17 07/19/17 07/20/17 23:59 23:59 23:59 Intake Total 1039 / 1039 2911 / 2911 200 / 200 Output Total 825 / 825 1825 / 1825 900 / 900 Balance 214 / 214 1086 / 1086 -700 / -700 Laboratory Results 07/19/17 16:42: POC Glucose 118 H 07/20/17 06:32: POC Glucose 107 07/20/17 11:21: POC Glucose 146 H Current Medications Acetaminophen (Tylenol) 650 mg PO Q6H PRN PRN PRN Reason: Non-cardiac pain (mod-severe) Hydrocodone Bitart/Acetaminophen ([place] 5mg-325mg) 1 - 2 tablet PO Q6H PRN PRN PRN Reason: Moderate-severe pain Albuterol Sulfate (Ventolin Aerosols) 2.5 mg INHALATION Q2H PRN PRN PRN Reason: SOB &/OR WHEEZING Amiodarone HCl (Cordarone) 400 mg PO QHS [facility] Last Admin: 07/19/17 21:52 Dose: 400 mg Calamine/Phenol (Calmoseptine Ointment) 1 applic TOPICAL TID [facility] PRN Reason: Protocol Last Admin: 07/20/17 06:33 Dose: 1 applicatio Dexamethasone (Decadron) 4 mg PO BIDCM [facility] Last Admin: 07/20/17 08:23 Dose: 4 mg Dextrose (D50w Syringe) 0 gm IV X1 PRN; Protocol PRN Reason: Hypoglycemia Digoxin (Lanoxin) 125 mcg PO SUMOWETHFR [facility] Last Admin: 07/19/17 09:26 Dose: 125 mcg Enoxaparin Sodium (Lovenox) 100 mg SC Q12@0600,1800 [facility] Last Admin: 07/20/17 06:34 Dose: 100 mg Glucagon () 1 mg IM .X1 PRN PRN Reason: Hypoglycemia Sodium Chloride () 250 mls @ 15 mls/hr IV .[id number] PRN PRN Reason: SALINE FLUSH Insulin Aspart (Novolog Flexpen (Bkc)) 0 units SC ACHS [facility] PRN Reason: Protocol Last Admin: 07/20/17 11:22 Dose: Not Given Insulin Detemir (Levemir (Bkc)) 20 units SC BID [facility] Last Admin: 07/20/17 10:26 Dose: 20 u Levetiracetam (Keppra) 1,000 mg PO BID [facility] Last Admin: 07/20/17 09:48 Dose: 1,000 mg Morphine Sulfate (Morphine) 1 - 2 mg IV Q4H PRN PRN PRN Reason: PAIN Nutritional Formula (Lactose Free) (Glucerna Shake) 120 ml PO 4X/DAY [facility] Last Admin: 07/20/17 09:46 Dose: Not Given Nystatin (Nystatin) 500,000 unit PO 4X/DAY [facility] Last Admin: 07/20/17 09:48 Dose: 500,000 unit Nystatin (Mycostatin Powder) 1 applic TOPICAL BID [facility] PRN Reason: Protocol Last Admin: 07/20/17 09:48 Dose: 1 applicatio Ondansetron HCl (Zofran) 4 mg IV Q6H PRN PRN PRN Reason: NAUSEA/VOMITING Last Admin: 07/16/17 12:39 Dose: 4 mg Pantoprazole Sodium (Protonix) 40 mg PO DAILY [facility] Last Admin: 07/20/17 08:22 Dose: 40 mg Sodium Chloride () 5 - 30 ml IV UD PRN PRN Reason: SALINE FLUSH Last Admin: 07/19/17 21:57 Dose: 30 ml Spironolactone (Aldactone) 25 mg PO DAILY [facility] Last Admin: 07/20/17 09:47 Dose: 25 mg Temazepam (Restoril) 15 mg PO QHS PRN PRN PRN Reason: insomnia Assessment/Plan Active and Suspected Problems JERRY (acute kidney injury) (Acute) Dvt femoral (deep venous thrombosis) (Acute) 57 year old M with 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 He had left leg swelling and pain and was subsequently diagnosed with acute left leg DVT, on subcutaneous Lovenox. Patient remains significantly weak, he declined ECF placement, palliative care and hospice recommended but he still remains a full code. 1. Acute Left leg DVT, on therapeutic dose of Lovenox, will continue 2. Acute kidney injury, improved, urine output is good, will repeat blood work in am 3. Metastatic lung cancer with mets to brain, with residual right-sided weakness , on decadrona and keppra, undergoing PT/OT 4. Chronic AF, rate controlled, on beta-brielle, digoxin and amiodarone. Digoxin level is normal. 5. Hypertension, relatively hypotensive, off BP meds, will continue to monitor. 6. Deconditioning due to medical illness, care managers assisting with discharge planning. 7. DVT PPx - On lovenox for DVT treatment Code Visit Inpatient E&M: 36274 Subs Hosp L2
--- NOTE | 2017-07-20 13:53 | CASEMGMT ---
Social Work Note Placed call to pt's again. Introduced self and role. According to pt's she spoke with him last evening and they have decided to seek short-term placement at [facility]. Inform that he cannot receive chemo while at the facility, but the facility will not accept as they have to pay for that chemo, not insurance and it's too expensive. At this time pt just completed radiation and they are seeking other treatment options, but he is not receiving treatment currently. Explain that we would have to wait for authorization and pt will have to be here through the weekend. Understanding expressed. SW to f/u with [facility] on Saturday to confirm that they can accept and have a pre-cert initiated. Plan: SNF pending acceptance and pre-cert. AKI Braswell
[2017-07-20 14:07] VITALS: BP 115/74; PULSE 67; RESP 18; TEMP 36.3; O2SAT 97
[2017-07-20 16:06] LABS: Bedside Glucose 164 mg/dL (70-110)
[2017-07-20 21:37] VITALS: BP 109/81; PULSE 70; RESP 18; TEMP 36.7; O2SAT 96
[2017-07-20] MEDS: Amiodarone 200 MG Tablet 400 MG PO (21:47)
[2017-07-20 22:11] LABS: Bedside Glucose 209 mg/dL (70-110)
[2017-07-20 22:14] VITALS: PULSE 70; RESP 18; O2SAT 96
[2017-07-21] VITALS (7 sets, daily range): BP systolic 110–125; BP diastolic 65–82; PULSE 63–80; RESP 18; TEMP 35.8–36.7; O2SAT 95–99
[2017-07-21] MEDS: Menthol/Lanolin/Calamine/Znox 113 GM Tube 1 APPLIC TOPICAL ×3 (05:54→22:52)
[2017-07-21] MEDS: Enoxaparin 100 MG/ML Syringe SC ×2 (05:56→17:58)
[2017-07-21 06:51] LABS: Bedside Glucose 103 mg/dL (70-110)
[2017-07-21 07:16] LABS: Bedside Glucose 110 mg/dL (70-110)
[2017-07-21] MEDS: NYSTATIN 500,000 UNIT/5 ML UDC 500000 UNIT PO (10:57)
[2017-07-21] MEDS: Nystatin Powder 15gm Bottle 1 APPLIC TOPICAL ×2 (10:57→22:52)
[2017-07-21] MEDS: Spironolactone 25 MG Tablet PO (10:58)
[2017-07-21] MEDS: levETIRAcetam 1,000 MG Tablet 1000 MG PO ×2 (10:58→22:59)
[2017-07-21] MEDS: Digoxin 125 MCG Tablet PO (10:58)
[2017-07-21] MEDS: Pantoprazole Sodium 40 MG Tablet PO (10:58)
--- NOTE | 2017-07-21 11:07 | PCM.PN.HOSP ---
Patient Problems: Active and Suspected Problems JERRY (acute kidney injury) (Acute) Dvt femoral (deep venous thrombosis) (Acute) Subjective: Patient was seen and examined. His is at his bedside. No fever or chills.Feels weak. says they agreed to [place]; waiting on insurance precertification. Objective: Physical exam: General: Alert, Oriented x3, obese, pale, not jaundiced Oral: Moist Mucosa Neck: Supple, No JVD Lungs: Clear to auscultation, No wheeze, No rales Cardiovascular: Regular rate, Normal S1, Normal S2 Abdomen: Bowel Sounds Present, Non Tender Extremities: No clubbing, No cyanosis, No edema Neurological: Cranial nerves II-XII grossly intact, Neuro grossly intact, Motor Exam 4/5 strength throughout because of generalised weakness Psych/Mental Status: Normal Affect Vitals/I&O's: Vital Signs Temp Pulse Resp BP Pulse Ox 97.5 F L 63 18 125/70 H 95 07/21/17 08:48 07/21/17 10:58 07/21/17 08:48 07/21/17 08:48 07/21/17 08:48 Oxygen Delivery Method Room Air Weight: 104.7 kg Body Mass Index (BMI) 28.8 Intake and Output for Last 24 Hours 07/19/17 07/20/17 07/21/17 23:59 23:59 23:59 Intake Total 2911 / 2911 1040 / 1040 300 / 300 Output Total 1825 / 1825 1120 / 1120 750 / 750 Balance 1086 / 1086 -80 / -80 -450 / -450 Laboratory Results 07/18/17 17:40: Ionized Calcium 5.0 07/19/17 21:49: POC Glucose 110 07/20/17 11:21: POC Glucose 146 H 07/20/17 16:00: POC Glucose 164 H 07/20/17 21:55: POC Glucose 209 H 07/21/17 06:42: POC Glucose 103 Current Medications Acetaminophen (Tylenol) 650 mg PO Q6H PRN PRN PRN Reason: Non-cardiac pain (mod-severe) Hydrocodone Bitart/Acetaminophen ([place] 5mg-325mg) 1 - 2 tablet PO Q6H PRN PRN PRN Reason: Moderate-severe pain Albuterol Sulfate (Ventolin Aerosols) 2.5 mg INHALATION Q2H PRN PRN PRN Reason: SOB &/OR WHEEZING Amiodarone HCl (Cordarone) 400 mg PO QHS [facility] Last Admin: 07/20/17 21:47 Dose: 400 mg Calamine/Phenol (Calmoseptine Ointment) 1 applic TOPICAL TID [facility] PRN Reason: Protocol Last Admin: 07/21/17 05:54 Dose: 1 applicatio Dexamethasone (Decadron) 4 mg PO BIDCM [facility] Last Admin: 07/21/17 08:42 Dose: 4 mg Dextrose (D50w Syringe) 0 gm IV X1 PRN; Protocol PRN Reason: Hypoglycemia Digoxin (Lanoxin) 125 mcg PO SUMOWETHFR [facility] Last Admin: 07/21/17 10:58 Dose: 125 mcg Enoxaparin Sodium (Lovenox) 100 mg SC Q12@0600,1800 [facility] Last Admin: 07/21/17 05:56 Dose: 100 mg Glucagon () 1 mg IM .X1 PRN PRN Reason: Hypoglycemia Sodium Chloride () 250 mls @ 15 mls/hr IV .[id number] PRN PRN Reason: SALINE FLUSH Insulin Aspart (Novolog Flexpen (Bk)) 0 units SC ACHS [facility] PRN Reason: Protocol Last Admin: 07/21/17 11:01 Dose: Not Given Insulin Detemir (Levemir (Bkc)) 20 units SC BID [facility] Last Admin: 07/21/17 11:02 Dose: Not Given Levetiracetam (Keppra) 1,000 mg PO BID [facility] Last Admin: 07/21/17 10:58 Dose: 1,000 mg Morphine Sulfate (Morphine) 1 - 2 mg IV Q4H PRN PRN PRN Reason: PAIN Nutritional Formula (Lactose Free) (Glucerna Shake) 120 ml PO 4X/DAY [facility] Last Admin: 07/21/17 10:56 Dose: Not Given Nystatin (Nystatin) 500,000 unit PO 4X/DAY [facility] Last Admin: 07/21/17 10:57 Dose: 500,000 unit Nystatin (Mycostatin Powder) 1 applic TOPICAL BID [facility] PRN Reason: Protocol Last Admin: 07/21/17 10:57 Dose: 1 applicatio Ondansetron HCl (Zofran) 4 mg IV Q6H PRN PRN PRN Reason: NAUSEA/VOMITING Last Admin: 07/16/17 12:39 Dose: 4 mg Pantoprazole Sodium (Protonix) 40 mg PO DAILY [facility] Last Admin: 07/21/17 10:58 Dose: 40 mg Sodium Chloride () 5 - 30 ml IV UD PRN PRN Reason: SALINE FLUSH Last Admin: 07/19/17 21:57 Dose: 30 ml Spironolactone (Aldactone) 25 mg PO DAILY [facility] Last Admin: 07/21/17 10:58 Dose: 25 mg Temazepam (Restoril) 15 mg PO QHS PRN PRN PRN Reason: insomnia Assessment/Plan Active and Suspected Problems JERRY (acute kidney injury) (Acute) Dvt femoral (deep venous thrombosis) (Acute) 57 year old M with 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 He had left leg swelling and pain and was subsequently diagnosed with acute left leg DVT, on subcutaneous Lovenox. Patient remains significantly weak, he declined ECF placement, palliative care and hospice recommended but he still remains a full code. 1. Acute Left leg DVT, on therapeutic dose of Lovenox, will continue same as per oncology recommendations 2. Acute kidney injury, improved, labs in am 3. Metastatic lung cancer with mets to brain, with residual right-sided weakness, on decadron and keppra, repeat CT planned in 4 weeks with possible evaluation for gamma knife in [facility]. 4. Chronic AF, rate controlled, on beta-brielle, digoxin and amiodarone. Digoxin level is normal. 5. Hypertension, relatively hypotensive, off BP meds, will continue to monitor. 6. Acute deconditioning due to medical illness, patient is so weak and a 2 person assist; care managers assisting with discharge planning. 7. DVT PPx - On lovenox for DVT treatment Code Visit Inpatient E&M: 13676 Subs Hosp L2
--- NOTE | 2017-07-21 11:20 | PN_ITS ---
Patient Problems: Active and Suspected Problems JERRY (acute kidney injury) (Acute) Dvt femoral (deep venous thrombosis) (Acute) Subjective: Patient was seen and examined. His is at his bedside. No fever or chills.Feels weak. says they agreed to [place]; waiting on insurance precertification. Objective: Physical exam: General: Alert, Oriented x3, obese, pale, not jaundiced Oral: Moist Mucosa Neck: Supple, No JVD Lungs: Clear to auscultation, No wheeze, No rales Cardiovascular: Regular rate, Normal S1, Normal S2 Abdomen: Bowel Sounds Present, Non Tender Extremities: No clubbing, No cyanosis, No edema Neurological: Cranial nerves II-XII grossly intact, Neuro grossly intact, Motor Exam 4/5 strength throughout because of generalised weakness Psych/Mental Status: Normal Affect Vitals/I&O's: Vital Signs Temp Pulse Resp BP Pulse Ox 97.5 F L 63 18 125/70 H 95 07/21/17 08:48 07/21/17 10:58 07/21/17 08:48 07/21/17 08:48 07/21/17 08:48 Oxygen Delivery Method Room Air Weight: 104.7 kg Body Mass Index (BMI) 28.8 Intake and Output for Last 24 Hours 07/19/17 07/20/17 07/21/17 23:59 23:59 23:59 Intake Total 2911 / 2911 1040 / 1040 300 / 300 Output Total 1825 / 1825 1120 / 1120 750 / 750 Balance 1086 / 1086 -80 / -80 -450 / -450 Laboratory Results 07/18/17 17:40: Ionized Calcium 5.0 07/19/17 21:49: POC Glucose 110 07/20/17 11:21: POC Glucose 146 H 07/20/17 16:00: POC Glucose 164 H 07/20/17 21:55: POC Glucose 209 H 07/21/17 06:42: POC Glucose 103 Current Medications Acetaminophen (Tylenol) 650 mg PO Q6H PRN PRN PRN Reason: Non-cardiac pain (mod-severe) Hydrocodone Bitart/Acetaminophen ([place] 5mg-325mg) 1 - 2 tablet PO Q6H PRN PRN PRN Reason: Moderate-severe pain Albuterol Sulfate (Ventolin Aerosols) 2.5 mg INHALATION Q2H PRN PRN PRN Reason: SOB &/OR WHEEZING Amiodarone HCl (Cordarone) 400 mg PO QHS [facility] Last Admin: 07/20/17 21:47 Dose: 400 mg Calamine/Phenol (Calmoseptine Ointment) 1 applic TOPICAL TID [facility] PRN Reason: Protocol Last Admin: 07/21/17 05:54 Dose: 1 applicatio Dexamethasone (Decadron) 4 mg PO BIDCM [facility] Last Admin: 07/21/17 08:42 Dose: 4 mg Dextrose (D50w Syringe) 0 gm IV X1 PRN; Protocol PRN Reason: Hypoglycemia Digoxin (Lanoxin) 125 mcg PO SUMOWETHFR [facility] Last Admin: 07/21/17 10:58 Dose: 125 mcg Enoxaparin Sodium (Lovenox) 100 mg SC Q12@0600,1800 [facility] Last Admin: 07/21/17 05:56 Dose: 100 mg Glucagon () 1 mg IM .X1 PRN PRN Reason: Hypoglycemia Sodium Chloride () 250 mls @ 15 mls/hr IV .[id number] PRN PRN Reason: SALINE FLUSH Insulin Aspart (Novolog Flexpen (Bk)) 0 units SC ACHS [facility] PRN Reason: Protocol Last Admin: 07/21/17 11:01 Dose: Not Given Insulin Detemir (Levemir (Bkc)) 20 units SC BID [facility] Last Admin: 07/21/17 11:02 Dose: Not Given Levetiracetam (Keppra) 1,000 mg PO BID [facility] Last Admin: 07/21/17 10:58 Dose: 1,000 mg Morphine Sulfate (Morphine) 1 - 2 mg IV Q4H PRN PRN PRN Reason: PAIN Nutritional Formula (Lactose Free) (Glucerna Shake) 120 ml PO 4X/DAY [facility] Last Admin: 07/21/17 10:56 Dose: Not Given Nystatin (Nystatin) 500,000 unit PO 4X/DAY [facility] Last Admin: 07/21/17 10:57 Dose: 500,000 unit Nystatin (Mycostatin Powder) 1 applic TOPICAL BID [facility] PRN Reason: Protocol Last Admin: 07/21/17 10:57 Dose: 1 applicatio Ondansetron HCl (Zofran) 4 mg IV Q6H PRN PRN PRN Reason: NAUSEA/VOMITING Last Admin: 07/16/17 12:39 Dose: 4 mg Pantoprazole Sodium (Protonix) 40 mg PO DAILY [facility] Last Admin: 07/21/17 10:58 Dose: 40 mg Sodium Chloride () 5 - 30 ml IV UD PRN PRN Reason: SALINE FLUSH Last Admin: 07/19/17 21:57 Dose: 30 ml Spironolactone (Aldactone) 25 mg PO DAILY [facility] Last Admin: 07/21/17 10:58 Dose: 25 mg Temazepam (Restoril) 15 mg PO QHS PRN PRN PRN Reason: insomnia Assessment/Plan Active and Suspected Problems JERRY (acute kidney injury) (Acute) Dvt femoral (deep venous thrombosis) (Acute) 57 year old M with 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 He had left leg swelling and pain and was subsequently diagnosed with acute left leg DVT, on subcutaneous Lovenox. Patient remains significantly weak, he declined ECF placement, palliative care and hospice recommended but he still remains a full code. 1. Acute Left leg DVT, on therapeutic dose of Lovenox, will continue same as per oncology recommendations 2. Acute kidney injury, improved, labs in am 3. Metastatic lung cancer with mets to brain, with residual right-sided weakness , on decadron and keppra, repeat CT planned in 4 weeks with possible evaluation for gamma knife in [facility]. 4. Chronic AF, rate controlled, on beta-brielle, digoxin and amiodarone. Digoxin level is normal. 5. Hypertension, relatively hypotensive, off BP meds, will continue to monitor. 6. Acute deconditioning due to medical illness, patient is so weak and a 2 person assist; care managers assisting with discharge planning. 7. DVT PPx - On lovenox for DVT treatment Code Visit Inpatient E&M: 85477 Subs Hosp L2
[2017-07-21 12:11] LABS: Bedside Glucose 93 mg/dL (70-110)
[2017-07-21 16:36] LABS: Bedside Glucose 132 mg/dL (70-110)
[2017-07-21] MEDS: 0.9% NaCl Peripheral Flush Adult/Peds IV (18:06)
[2017-07-21] MEDS: Amiodarone 200 MG Tablet 400 MG PO (22:53)
[2017-07-21 23:21] LABS: Bedside Glucose 164 mg/dL (70-110)
[2017-07-22] MEDS: Menthol/Lanolin/Calamine/Znox 113 GM Tube 1 APPLIC TOPICAL ×3 (05:17→22:52)
[2017-07-22] MEDS: 0.9% NaCl Peripheral Flush Adult/Peds IV (05:18)
[2017-07-22 05:19] VITALS: BP 113/64; PULSE 64; RESP 18; TEMP 36.7; O2SAT 97
[2017-07-22 05:20] VITALS: PULSE 64; RESP 18; O2SAT 97
[2017-07-22] MEDS: Enoxaparin 100 MG/ML Syringe SC ×2 (05:25→17:15)
[2017-07-22 06:27] LABS: BUN 30 mg/dL (7-18); Creatinine, Serum 0.86 mg/dL (0.70-1.30); Glucose 107 mg/dL (74-106)
[2017-07-22 06:28] LABS: Anion Gap 7 (5-15); BUN/Creat Ratio 35.1 RATIO (10-20); Calcium,Total 7.8 mg/dL (8.5-10.1); Chloride 104 mmol/L (98-107); EST Glomerular Filtration Rate 98 mL/min (>60); Est Glom Filt Rate - Afr Amer 119 mL/min (>60); Estimated Creatinine Clearance 113.27 ml/min; Potassium 4.5 mmol/L (3.5-5.1); Sodium Level 134 mmol/L (136-145)
[2017-07-22 06:42] LABS: Absolute Lymphocyte Count 0.38 X10^3/ul (0.83-4.51); Absolute Neutrophil Count 4.2 X10^3/uL (2.0-7.7); Basophil# 0.01 X10^3/uL; Basophil% 0.2 % (0-1); Hematocrit 38.8 % (40-54); Hemoglobin 13.8 g/dl (13.0-16.5); Lymphocyte # 0.38 X10^3/ul (4.0); Mean Corp Hgb Conc 35.6 g/gl (32-36); Mean Corpuscular Hgb 32.1 pg (27.0-32.0); Mean Corpuscular Volume 90.2 fL (80-94); Mean Platelet Vol. 10.3 fl (6.2-12.0); Monocyte# 0.13 X10^3/uL; Monocyte% 2.7 % (0-10); Neutrophil # 4.19 X10^3/uL (2.7-7.7); Neutrophil % 88.5 % (47-70); Platelet Count 80 K/mm3 (150-450); RBC Distribution Width SD 48.7 fl (35.1-43.9); White Blood Count 4.7 K/mm3 (4.4-11.0)
[2017-07-22 06:54] LABS: Differential Indicated SCAN CRITERIA MET; POSITIVE COUNT NO; POSITIVE DIFFERENTIAL YES; POSITIVE MORPHOLOGY NO
[2017-07-22 07:00] LABS: Differential Comment SCANNED
[2017-07-22 07:57] VITALS: PULSE 68
[2017-07-22] MEDS: Digoxin 125 MCG Tablet PO (07:57)
[2017-07-22] MEDS: Pantoprazole Sodium 40 MG Tablet PO (07:57)
[2017-07-22] MEDS: levETIRAcetam 1,000 MG Tablet 1000 MG PO ×2 (07:58→22:52)
[2017-07-22] MEDS: Nystatin Powder 15gm Bottle 1 APPLIC TOPICAL ×2 (07:58→22:52)
[2017-07-22] MEDS: Spironolactone 25 MG Tablet PO (07:58)
[2017-07-22 08:00] VITALS: BP 108/69; PULSE 63; RESP 16; TEMP 36.3; O2SAT 100
--- NOTE | 2017-07-22 09:41 | CASEMGMT ---
ELIJAH DARDEN in to discuss discharge plans with patient and . Patient's stated she visited [place] and does not wish for her to go to [place]. Discussed possibility going home with hospice or palliative which patient and are unsure if they would be able to manage at home at this time. ELIJAH DARDEN discussed other SNF options and provided a list of in network facilities to patient and to review. ELIJAH DARDEN will follow up with patient and to discuss further discharge needs and choice of SNF.
[2017-07-22 11:46] LABS: Bedside Glucose 108 mg/dL (70-110)
[2017-07-22 11:46] LABS: Bedside Glucose 105 mg/dL (70-110)
--- NOTE | 2017-07-22 13:41 | CASEMGMT ---
Social Work Note Updated by nursing that the pt's returned and is requesting placement at [facility]. Placed call to Jessica at [facility] to check on bed availability and left vm requesting a return phone call. In to speak with the pt and his regarding the discharge plan. stating she wants [facility] and if he cannot go there she intends on taking him home. She inquires about a jaylyn lift and states unsure if insurance would cover, but could look into this if needed. Discuss that if they feel the pt needs placement, whether [facility] can accept or not they may need to select another facility. states he will not go to [place] and the other facilities are too far away. Anticipates home with [facility] if [facility] unable to accept. Plan: SNF pending acceptance and pre-cert. Kelly Bennett, PLANT SUPERINTENDENT, VP OF PRODUCT
--- NOTE | 2017-07-22 14:28 | CASEMGMT ---
Social Work Note Call from Jessica at [facility] stating that they do not have beds available. SW in to speak with pt who is presently being seen by the Petroleum Laboratory Technician. Will return as time allows to discuss alternative discharge plan. Kelly Bennett, SPORTS EQUIPMENT REPAIRER, PARCEL POST TRUCK DRIVER
[2017-07-22 14:35] VITALS: BP 104/71; PULSE 65; RESP 18; TEMP 36.4; O2SAT 97
--- NOTE | 2017-07-22 15:32 | CHAPLAIN ---
Type of Pastoral Visit ___ Initial Visit _x__ Follow-up Visit ___ On-call Visit ___ General Patient Visit ___ Spiritual Assessment ___ Family Conference ___ Bereavement ___ Rapid Response ___ Code Blue ___ Other (describe below) Pastoral Care Referral From _x__ Patient ___ Family ___ Nurse ___ Physician ___ Rad Tech ___ Drycleaner ___ Other (describe below) Sacrament/Intervention _x__ Active listening ___ Anointing ___ Moravian ___ Bereavement ___ Communion ___ Jojo exploration ___ ___ Life review _x__ Prayer ___ Reconciliation ___ Sacrament of Sick _x__ Supportive presence ___ Wedding ___ Other (describe below) Pastoral Comments
[2017-07-22 16:31] LABS: Bedside Glucose 124 mg/dL (70-110)
--- NOTE | 2017-07-22 16:54 | CASEMGMT ---
Social Work Note Call from Jessica that they did not have any beds. Accompanied physician into pt's room to discuss discharge plan as well as understanding of prognosis and values/wishes for end of life care. Pt still wanting to participate in treatment and expresses a stronger inclination towards a longer life vs. concern for the quality. Discuss palliative vs. hospice care again and pt declines at this time. Does express concern with returning home as he fears his will not be able to manage with his current weakness. Dr. Jacome to contact Dr. Church. Placed call to pt's . Inform that [facility] does not have availability. Express concern with pt returning home as they felt he needed placement, and Azra states that she will be in this evening to discuss with him. AKI Braswell SPORTING GOODS SALES ASSOCIATE
--- NOTE | 2017-07-22 20:23 | PCM.PN.BLA ---
Progress Note Pt is a 57 YO male with a PMH of stage IV small cell lung CA with multiple mets to the brain who was admitted to the hospital on 07/10/[address] Church's office with dehydration. He had been treated with radiation to the brain over the preceding month and his intake had been poor. He was weak and falling at home. He has been unable to stand at the bedside and has to have assistance to even sit at the edge of the bed. He is very weak, R>L side. Alert and oriented ?3, no apparent distress but appears depressed with flat affect Moist mucous membranes Lungs-clear to auscultation Heart-regular rate and rhythm, no gallop, no rub Abdomen-soft, nondistended with normal bowel sounds and no guarding with palpation No peripheral edema Very flat affect, not make good eye contact Impressions 1. stage IV small cell lung CA with brain mets - recently finished 4 weeks of radiation to the head 2. Acute left leg DVT-will need Lovenox for the rest of his life 3. Atrial fibrillation-rate controlled 4. History of hypertension 5. Generalized weakness and debility with increased weakness on the right side secondary to brain metastases 6. Thrombocytopenia-stable 7. Dehydration-improved 8. Acute kidney injury secondary to severe dehydration 9. History of seizures on Keppra 10. hx of CM - no ECHO has been done at [facility] Talked for 25 minutes with the pt and the SW and he believes that he is going to have a long life and they got it all with the chemo he got last year......had 6 rounds chemo and radiation. The chemo concluded in November and he recently finished radiation to the brain. He tells me that he does not feel he needs hospice at this time. He wants to be a full code with intubation and CPR if needed. Discussed with Dr. Church and he tells me that he may have 6 months to a year but, will need to repeat the CTB to see if the radiation has caused shrinkage in the brain masses. I do not feel that his will be able to adequately care for him at home....he needs 24 hour supervision and he can not even turn from side to side in the bed without assist......at this point he is totally dependent for his care. Code Visit Inpatient E&M: 97465 Subs Hosp L2
--- NOTE | 2017-07-22 20:31 | PN_ITS ---
Progress Note Pt is a 57 YO male with a PMH of stage IV small cell lung CA with multiple mets to the brain who was admitted to the hospital on 07/10/[address] Church's office with dehydration. He had been treated with radiation to the brain over the preceding month and his intake had been poor. He was weak and falling at home. He has been unable to stand at the bedside and has to have assistance to even sit at the edge of the bed. He is very weak, R>L side. Alert and oriented ?3, no apparent distress but appears depressed with flat affect Moist mucous membranes Lungs-clear to auscultation Heart-regular rate and rhythm, no gallop, no rub Abdomen-soft, nondistended with normal bowel sounds and no guarding with palpation No peripheral edema Very flat affect, not make good eye contact Impressions 1. stage IV small cell lung CA with brain mets - recently finished 4 weeks of radiation to the head 2. Acute left leg DVT-will need Lovenox for the rest of his life 3. Atrial fibrillation-rate controlled 4. History of hypertension 5. Generalized weakness and debility with increased weakness on the right side secondary to brain metastases 6. Thrombocytopenia-stable 7. Dehydration-improved 8. Acute kidney injury secondary to severe dehydration 9. History of seizures on Keppra 10. hx of CM - no ECHO has been done at [facility] Talked for 25 minutes with the pt and the SW and he believes that he is going to have a long life and they got it all with the chemo he got last year......had 6 rounds chemo and radiation. The chemo concluded in November and he recently finished radiation to the brain. He tells me that he does not feel he needs hospice at this time. He wants to be a full code with intubation and CPR if needed. Discussed with Dr. Church and he tells me that he may have 6 months to a year but , will need to repeat the CTB to see if the radiation has caused shrinkage in the brain masses. I do not feel that his will be able to adequately care for him at home....he needs 24 hour supervision and he can not even turn from side to side in the bed without assist......at this point he is totally dependent for his care. Code Visit Inpatient E&M: 02988 Subs Hosp L2
[2017-07-22 22:33] VITALS: BP 111/51; PULSE 81; RESP 16; TEMP 36.6; O2SAT 97
[2017-07-22] MEDS: Glucerna Shake 120 ML LIQUID PO (22:51)
[2017-07-22] MEDS: NYSTATIN 500,000 UNIT/5 ML UDC 500000 UNIT PO (22:52)
[2017-07-22] MEDS: Amiodarone 200 MG Tablet 400 MG PO (22:52)
[2017-07-23 01:37] LABS: Bedside Glucose 162 mg/dL (70-110)
[2017-07-23 02:45] VITALS: BP 101/66; PULSE 75; RESP 16; TEMP 36.9; O2SAT 97
[2017-07-23] MEDS: Menthol/Lanolin/Calamine/Znox 113 GM Tube 1 APPLIC TOPICAL ×3 (06:10→22:41)
[2017-07-23] MEDS: Enoxaparin 100 MG/ML Syringe SC ×2 (06:10→18:08)
[2017-07-23 06:41] LABS: Bedside Glucose 96 mg/dL (70-110)
[2017-07-23 08:05] VITALS: BP 105/68; PULSE 75; RESP 16; TEMP 36.9; O2SAT 95
[2017-07-23] MEDS: levETIRAcetam 1,000 MG Tablet 1000 MG PO ×2 (08:09→22:40)
[2017-07-23] MEDS: NYSTATIN 500,000 UNIT/5 ML UDC 500000 UNIT PO ×4 (08:09→22:40)
[2017-07-23] MEDS: Spironolactone 25 MG Tablet PO (08:09)
[2017-07-23] MEDS: Pantoprazole Sodium 40 MG Tablet PO (08:09)
[2017-07-23] MEDS: Polyethylene Glycol 3350 17 GM PACKET PO (08:10)
[2017-07-23] MEDS: Nystatin Powder 15gm Bottle 1 APPLIC TOPICAL ×2 (08:10→22:41)
--- NOTE | 2017-07-23 09:07 | CASEMGMT ---
Addendum entered by Kelly Bennett 07/23/17 09:23: Social Work Note Placed call to Dr. Church's office [phone] and spoke with Dora, patent lawyer. Transferred to RN, Mary Anne, who states that she will notify Dr. Winston who is lactation specialist that the pt is requesting to speak with him. Will continue to follow and assist as needed. AKI Braswell, SPACE PHYSICIST Original Note: Social Work Note Face to face with the pt and his to confirm discharge plan. They both state that they discussed their options last night and would like to go home with hospice care. Also request that Dr. Church or Dr. Winston come in to speak with him. Informed that SW would pass this on to the stitch rubber to see if either were available today. Placed call to Kim with referral. Hospice meeting setup for 11:00 this date. Physician notified. SW to continue to follow and assist with discharge planning. Plan: Home with Hospice pending pt and agreement after meeting. AKI Braswell, SPACE PHYSICIST
[2017-07-23] MEDS: Glucerna Shake 120 ML LIQUID PO ×2 (12:17→16:42)
--- NOTE | 2017-07-23 12:52 | CT_ITS ---
STUDY: CT BRAIN WITHOUT CONTRAST REASON FOR EXAM: Male, 57 years old. Right-sided weakness. The patient has a history of liver metastatic lung cancer. RADIATION DOSAGE (If Supplied By Facility): CTDIvol = ( 44.99 ) mGy, DLP = ( 897.35 ) mGycm TECHNIQUE: Transaxial CT imaging of the brain was performed without administration of intravenous contrast material. Individualized dose optimization techniques were used for this CT. COMPARISON: Comparison is made with prior study dated July 12, 2017. FINDINGS: Normal soft tissue structures. Normal calvarium. Normal size ventricles and extra-axial spaces for the patient's age. Stable appearance of the hypodense nodules in the superior aspect of the left parietal occipital lobe as well as the hypodensity in the medial aspect of the left frontal parietal lobe abutting the falx. Stable hypodensity in the posterior aspect of the right occipital lobe. Since prior study, there has been progression of the hypodensity in the posterior aspect of the right temporal occipital lobe presently measuring 2.8 cm x 3.8 cm. Normal basal ganglia and thalami. Normal brainstem. Normal cerebellum. There is no intracranial hemorrhage. There are no findings of an acute ischemic infarction. Atherosclerotic calcification of the vertebral arteries and cavernous portions of the internal carotid arteries bilaterally. Normal visualized paranasal sinuses. CT/Brain/Head without Contrast IMPRESSION: Essentially stable findings except for enlargement of the hypodense nodule in the right posterior temporal occipital lobe. Electronically Signed: Macario Mirza MD at 13:50 EST Tel [phone], Service support ,
--- NOTE | 2017-07-23 13:03 | PN_ITS ---
Patient Problems: Active and Suspected Problems JERRY (acute kidney injury) (Acute) Dvt femoral (deep venous thrombosis) (Acute) Subjective: Patient has not improved since last week. Still unable to get out bed and use of his right leg and arm. No clinical bleeding or bruising on Lovenox for DVT. Patient has no calf swelling or tenderness, no chest pain or shortness of breath. He also deny headaches, nausea or vomiting. - Physical Exam General: Alert, Oriented x3 Oral: No Gingival or Mucosal Lesions/ Ulcerations Neck: Supple, No JVD Lungs: Clear to auscultation, Diminished Cardiovascular: Regular rate, Regular Rhythm, Normal S1, Normal S2 Abdomen: Bowel Sounds Present, Soft, Non Tender Extremities: No clubbing, No cyanosis, No Calf Tenderness Skin: No rashes Musculoskeletal: No Tenderness to Palpation of Joints or Extremities Lymphatic: No Cervical, Supraclavicular, or Inguinal Adenopathy Neurological: Cranial nerves II-XII grossly intact - Right hemiparesis Vital Signs Temp Pulse Resp BP Pulse Ox 98.4 F 75 16 105/68 95 07/23/17 08:05 07/23/17 08:05 07/23/17 08:05 07/23/17 08:05 07/23/17 08:05 Oxygen Delivery Method Room Air Weight: 230 lb 13.184 oz Body Mass Index (BMI) 28.8 Intake and Output for Last 24 Hours 07/21/17 07/22/17 07/23/17 23:59 23:59 23:59 Intake Total 700 / 700 1390 / 1390 650 / 650 Output Total 950 / 950 2275 / 2275 1125 / 1125 Balance -250 / -250 -885 / -885 -475 / -475 POC Glucose 07/23/17 07/22/17 07/22/17 06:09 22:50 16:18 POC Glucose 96 162 H 124 H Assessment/Plan Active and Suspected Problems JERRY (acute kidney injury) (Acute) Dvt femoral (deep venous thrombosis) (Acute) 1. Patient had a 2nd recurrence of small cell lung cancer involving the left parietal-occipital lobe. Previous GK therapy and whole brain radiation completed last month. -No significant improvement in overall weakness with residual right hemiparesis PLAN: -Repeat CT brain without contrast today to see if there is any improvement since he completed relative palliative radiation therapy; if no further improvement noted or he has increased cerebral edema, patient is not a candidate for additional radiation therapy. Hospice would be more appropriate than rehabilitation. -If CT brain showing improvement, then short-term rehabilitation and low taper dexamethasone & consider checking a perineoplastic antibodies as outpatient. -Patient is not a candidate for additional palliative chemotherapy or immunotherapy unless his condition improved. -Mr. Soriano and his family currently is not ready for hospice, refer to social service for home health and home physical therapy versus short-term residential home placement. 2. History of acute DVT- stable on Lovenox injection & platelet count is stable. PLAN: - Continue Lovenox every 12 hour as outpatient. 3. Acute renal injury- stable. PLAN: -Monitor as outpatient along with glucose. cc: Dr. Rene Church, Dr. Chevy Ag; Dr. Kacie Jacome
[2017-07-23 13:21] LABS: Bedside Glucose 93 mg/dL (70-110)
[2017-07-23 14:00] VITALS: BP 92/59; PULSE 75; RESP 16; TEMP 36.8; O2SAT 95
--- NOTE | 2017-07-23 16:36 | CHAPLAIN ---
Type of Pastoral Visit ___ Initial Visit _x__ Follow-up Visit ___ On-call Visit ___ General Patient Visit ___ Spiritual Assessment ___ Family Conference ___ Bereavement ___ Rapid Response ___ Code Blue ___ Other (describe below) Pastoral Care Referral From _x__ Patient ___ Family _x__ Nurse ___ Physician ___ Industrial Economist ___ Machine Iii Coremaker ___ Other (describe below) Sacrament/Intervention _x__ Active listening ___ Anointing ___ Yarsanism ___ Bereavement ___ Communion _x__ Jojo exploration ___ ___ Life review _x__ Prayer ___ Reconciliation ___ Sacrament of Sick _x__ Supportive presence ___ Wedding ___ Other (describe below) Pastoral Comments patient asked RN to have rap artist return today to visit with him; this time pt is alone in room and spouse is not with him; pt had thoughts on his mind and was seeking spiritual input and follow up; pt is facing more test results and the possibility that cancer is not contained but advancing; pt admits to concerns about what will happen to his , about finances, and his spiritual condition; discussion on these matters to point where pt says he is accepting of his status and 'understands' that there are things outside of his control; pt welcomes a prayer for these matters; pt has hope for recovery but seems more realistic today about potential end of life
[2017-07-23 18:16] LABS: Bedside Glucose 109 mg/dL (70-110)
[2017-07-23 20:29] VITALS: BP 107/72; PULSE 78; RESP 14; TEMP 36.6; O2SAT 98
--- NOTE | 2017-07-23 21:45 | PCM.PN.BLA ---
Progress Note CTB was repeated today and shows there has been progression of the hypodensity in the posterior aspect of the right temporal occipital lobe currently measures 2.8 cm x 3.8 cm. The remaining brain metastases are stable but certainly no smaller after radiation. The patient tells me that he does not want hospice at this time and still wants to be a full code. He told me that Dr. García said the CT looked better and that it was a good sign that he does not have headaches. He tells me that the plan is to go home with HHC/PT. His confirms this. They do not have a hospital bed or a jaylyn lift. They have a WC but he is unable to assist in getting into the WC. They have a bedside commode but, once again he is unable to transfer. They are frustrated that they are getting different information from different physicians and they do not know what to believe. They want to believe that he is going to recover but in actuality he is 100% dependent for his care and at this point is not functional. The brain mets are not any better with radiation and in fact there is enlargement despite the radiation. alert and oriented X 3. No complaints at this time Lungs - CTA but diminished Heart - Regular, no gallop abd- soft and ND, BS present no edema except RUE is edematous because of not moving it Impressions 1. 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 2. Acute left leg DVT-will need Lovenox for the rest of his life 3. Atrial fibrillation-rate controlled 4. History of hypertension 5. Generalized weakness and debility with increased weakness on the right side secondary to brain metastases 6. Thrombocytopenia-stable 7. Dehydration-improved 8. Acute kidney injury secondary to severe dehydration 9. History of seizures on Keppra 10. hx of CM - no ECHO has been done at [facility] Discussed with Dr. Church and he called the patients and will meet with the pt and the in the room tomorrow morning. Will discuss hospice with them and he feels it is appropriate at this time to have this discussion. Code Visit Inpatient E&M: 10635 Subs Hosp L2
[2017-07-23] MEDS: Amiodarone 200 MG Tablet 400 MG PO (22:39)
[2017-07-23 23:01] LABS: Bedside Glucose 134 mg/dL (70-110)
[2017-07-24 03:58] VITALS: BP 116/68; PULSE 74; RESP 14; TEMP 36.7; O2SAT 98
[2017-07-24] MEDS: Enoxaparin 100 MG/ML Syringe SC (06:26)
[2017-07-24] MEDS: Menthol/Lanolin/Calamine/Znox 113 GM Tube 1 APPLIC TOPICAL (06:26)
[2017-07-24 06:56] LABS: Bedside Glucose 111 mg/dL (70-110)
--- NOTE | 2017-07-24 08:48 | CASEMGMT ---
Social Work Note Dr. Church in today to discuss with the pt his prognosis. Placed call to [facility]. Spoke with Magui and requested that they come to meet with the pt and his per their request. Julia called back and will be in shortly. SW to continue to follow and asisst with discharge planning. Kelly Bennett, WARDROBE MANAGER CAVALRY SCOUT
[2017-07-24 11:01] VITALS: BP 111/63; PULSE 83; RESP 18; TEMP 36.7; O2SAT 98
[2017-07-24] MEDS: Pantoprazole Sodium 40 MG Tablet PO (11:02)
[2017-07-24] MEDS: Glucerna Shake 120 ML LIQUID PO (11:03)
[2017-07-24] MEDS: Spironolactone 25 MG Tablet PO (11:03)
[2017-07-24 11:04] VITALS: PULSE 83
[2017-07-24] MEDS: NYSTATIN 500,000 UNIT/5 ML UDC 500000 UNIT PO (11:04)
[2017-07-24] MEDS: Digoxin 125 MCG Tablet PO (11:04)
[2017-07-24] MEDS: levETIRAcetam 1,000 MG Tablet 1000 MG PO (11:04)
[2017-07-24] MEDS: Polyethylene Glycol 3350 17 GM PACKET PO (11:06)
[2017-07-24] MEDS: Nystatin Powder 15gm Bottle 1 APPLIC TOPICAL (11:06)
[2017-07-24 11:45] LABS: Bedside Glucose 113 mg/dL (70-110)
--- NOTE | 2017-07-24 12:38 | PCM.DC ---
- Discharge Diagnoses Current Active Problems: Current Active and Chronic Problems Seizure (Chronic) Lung cancer metastatic to brain (Chronic) JERRY (acute kidney injury) (Acute) Cardiomyopathy (Chronic) Dvt femoral (deep venous thrombosis) (Acute) Thrombocytopenia (Chronic) Debility (Chronic) You will use the following diet at home:: No restrictions Your food should be the consistency of: Regular Your liquids should be the consistency of: Regular/Thin Discharge Activity: - - Activity as tolerated Instructions: Using a Blood Sugar Log, Hyperglycemia (High Blood Sugar), Hypoglycemia (Low Blood Sugar), Oral Medications for Type 2 Diabetes, Types of Insulin, Healthy Meals for Diabetes, Diabetes: Sick-Day Plan, Managing Your Glucose Level for Diabetes and Kidney Disease, Diabetes and Your Child: Checking Blood Sugar, Managing Diabetes: The A1C Test, Diabetes: Learning About Serving and Portion Sizes, Diabetes: Meal Planning, Diabetes: Understanding Carbohydrates, Fats, and Protein, Getting Support When You Have Diabetes, Managing Stress When You Have Diabetes, Understanding Type 2 Diabetes Allergies/Adverse Reactions: Allergies No Known Allergies Allergy (Verified 06/11/17 14:25) Medications to take at Discharge Amiodarone HCl 400 mg PO QHS 04/19/16 Albuterol IH (ProAir) [Proair Hfa] 1 - 2 puff INHALATION Q4H PRN PRN 06/11/17 Digoxin 125 mcg PO SUMOWETHFR 06/11/17 Spironolactone [Aldactone] 25 mg PO DAILY 06/11/17 Levetiracetam [Keppra] 1,000 mg PO BID 07/10/17 Nystatin 5 ml PO 4X/DAY 07/10/17 Pantoprazole Sodium [Protonix] 40 mg PO DAILY 07/10/17 Acetaminophen [Tylenol Tablet] 650 mg PO Q6H PRN PRN tablet 07/24/17 Dexamethasone 4 mg PO TIDCM #36 tab 07/24/17 Enoxaparin [Lovenox] 100 mg SC Q12@0600,1800 syringe 07/24/17 Insulin Detemir [Levemir FlexPen] 20 units SC BID insuln.pen 07/24/17 Menthol/Lanolin/Calamine/Znox [Calmoseptine Ointment] 1 applic TOPICAL TID tube 07/24/17 Nystatin Powder [Mycostatin Powder] 1 applic TOPICAL BID bottle 02/14/18 Polyethylene Glycol 3350 [Miralax] 17 gm PO DAILY packet 07/24/17 The following prescriptions were given: Dexamethasone 4 mg PO TIDCM #36 tab Primary Care Physician: Branden Rebolledo MD [Primary Care Provider] - Proposed Discharge Date: 07/24/17
--- NOTE | 2017-07-24 12:48 | PCM.DC.SUM ---
Discharge Date and Diagnosis Date of Admission: 07/10/17 Date of Discharge: 07/24/17 - Primary Discharge Diagnosis Active and Suspected Problems JERRY (acute kidney injury) (Acute) Dehydration (Acute) Hypotension due to volume depletion Dvt femoral (deep venous thrombosis) (Acute) Depression (Suspected) - Secondary Discharge Diagnosis Chronic Problems Former cigarette smoker (Chronic) Seizure disorder (Chronic) Primary small cell malignant neoplasm of lung, stage 4 (Chronic) with mets to the brain Cardiomyopathy (Chronic) Pacemaker (Chronic) Afib (Chronic) Hypertension (Chronic) Thrombocytopenia (Chronic)- stable Debility (Chronic) Hospital Course and Treatment Imaging Results: Clinical Impression(s) from Imaging Studies Chest X-Ray 07/10/17 15:55 IMPRESSION: Right hilum remaining prominent after a substantial improvement in the right lower lung infiltrates/atelectasis and pleural effusion. Left lung remains expanded and clear. Continued cardiomegaly. Right atrial and ventricular ICD unchanged. Electronically Signed: Lisa Rose MD at 16:22 EST , Service support , Renal Ultrasound 07/10/17 18:50 IMPRESSION: Normal size kidneys bilaterally without hydronephrosis or stones. 1 cm exophytic cyst of the right kidney. Unremarkable urinary bladder. Electronically Signed: Lisa Rose MD at 22:11 EST , Service support , Brain CT 07/12/17 08:42 IMPRESSION: Multiple bilateral intracerebral metastasis with mild edema as described. The amount of edema as decreased as compared to prior study. The abnormal enhancing nodule in the left cerebellum is not seen at this time. Electronically Signed: Macario Mirza MD at 9:33 EST Tel [phone], Service support , Brain CT 07/23/17 12:52 IMPRESSION: Essentially stable findings except for enlargement of the hypodense nodule in the right posterior temporal occipital lobe. Electronically Signed: Macario Mirza MD at 13:50 EST Tel [phone], Service support , Dr. Rene Church - [facility] oncology Hospice Operations: None Procedures: None Summary of Care Provided: Pt is a 57 YO male with a PMH of stage IV small cell lung CA with multiple mets to the brain who was admitted to the hospital on 07/10/[address] Church's office with dehydration. He had been treated with radiation to the brain over the preceding month and his intake had been poor. He was weak and falling at home. He was unable to stand at the bedside and had to have assistance to even sit at the edge of the bed. He was very weak, R>L side. He was admitted to the hospital and hydrated. An US of the LE' s showed acute deep vein thrombosis of the left distal femoral, popliteal, tibial peroneal trunk, posterior tibial, peroneal and soleus veins. CT scan of the brain was obtained and showed no intracranial bleeding and he was started on a continuous heparin infusion. He was later transitioned to Lovenox and discharged on Lovenox. Creatinine gradually improved with hydration and at DC was 0.86. Decadron was weaned. The platelet count remained stable throughout the admission even with the addition of the Lovenox. A lot of discussion with the pt and his took place in the hospital about code status and plans for DC. He failed to improve with PT/OT and was so weak he is unable to even sit at the EOB without assistance. Code status was amended from FULL CODE to DNR CCA. A repeat CT scan of the brain was done on 07/23/2017 and showed no improvement. There was an enlarging mass in the right posterior temporal occipital lobe despite recent [address] Church was notified of the CT results and came in to talk with the pt and his regarding prognosis. They elected to meet with Hospice and he was discharged home with hospice on 07/24/17. This note was generated with Next Generation Danceation software. It may contain incorrect words, spelling, and punctuation that were not noted in checking the note before signing. Discharge Activity: - - Activity as tolerated Home Medications: Medications to take at Discharge Amiodarone HCl 400 mg PO QHS 04/19/16 Albuterol IH (ProAir) [Proair Hfa] 1 - 2 puff INHALATION Q4H PRN PRN 06/11/17 Digoxin 125 mcg PO SUMOWETHFR 06/11/17 Spironolactone [Aldactone] 25 mg PO DAILY 06/11/17 Levetiracetam [Keppra] 1,000 mg PO BID 07/10/17 Nystatin 5 ml PO 4X/DAY 07/10/17 Pantoprazole Sodium [Protonix] 40 mg PO DAILY 07/10/17 Acetaminophen [Tylenol Tablet] 650 mg PO Q6H PRN PRN tablet 07/24/17 Dexamethasone 4 mg PO TIDCM #36 tab 07/24/17 Enoxaparin [Lovenox] 100 mg SC Q12@0600,1800 syringe 07/24/17 Enoxaparin [Lovenox] 100 mg SC Q12@0600,1800 #60 syringe 07/24/17 Insulin Detemir [Levemir FlexPen] 20 units SC BID insuln.pen 07/24/17 Menthol/Lanolin/Calamine/Znox [Calmoseptine Ointment] 1 applic TOPICAL TID tube 07/24/17 Nystatin Powder [Mycostatin Powder] 1 applic TOPICAL BID bottle 07/24/17 Polyethylene Glycol 3350 [Miralax] 17 gm PO DAILY packet 07/24/17 Following Prescrptions Were Given to Patient: Enoxaparin [Lovenox] 100 mg SC Q12@0600,1800 #60 syringe Dexamethasone 4 mg PO TIDCM #36 tab Primary Care Physician: Branden Rebolledo MD [Primary Care Provider] - Patient Instructions: Using a Blood Sugar Log, Hyperglycemia (High Blood Sugar), Hypoglycemia (Low Blood Sugar), Oral Medications for Type 2 Diabetes, Types of Insulin, Healthy Meals for Diabetes, Diabetes: Sick-Day Plan, Managing Your Glucose Level for Diabetes and Kidney Disease, Diabetes and Your Child: Checking Blood Sugar, Managing Diabetes: The A1C Test, Diabetes: Learning About Serving and Portion Sizes, Diabetes: Meal Planning, Diabetes: Understanding Carbohydrates, Fats, and Protein, Getting Support When You Have Diabetes, Managing Stress When You Have Diabetes, Understanding Type 2 Diabetes Disposition: Home with Hospice Minutes spent on discharge:: 40 Patient Condition:: Poor Meaningful Use Info Meaningful Use Diagnoses (Choose all that apply): VTE - VTE Anticoag overlap given w/in hospital stay or rx'd at fl?: No Pt receive overlap for 5 days?: No Reason overlap not ordered, prescribed, or given for 5 days: Treatment Not Indicated - Will be on Lovenox 100 mg BID for VTE in a patient with known CA Code Visit Inpatient E&M: [id number] [facility] Hosp
--- NOTE | 2017-07-24 12:55 | CASEMGMT ---
Social Work Note Pt and agreeable to Hospice services. Discharge instructions, medlist and scripts faxed to hospice. Placed call to to confirm transport home. Left vm requesting a return phone call. SW to continue to follow and assist with discharge planning. Plan: Home with Hospice. Kelly Bennett, PLANT AND INSTRUMENT ENGINEER, ELECTRONIC PUBLICATIONS SPECIALIST
--- NOTE | 2017-07-24 12:57 | DS.PCM_ITS ---
Discharge Date and Diagnosis Date of Admission: 07/10/17 Date of Discharge: 07/24/17 - Primary Discharge Diagnosis Active and Suspected Problems JERRY (acute kidney injury) (Acute) Dehydration (Acute) Hypotension due to volume depletion Dvt femoral (deep venous thrombosis) (Acute) Depression (Suspected) - Secondary Discharge Diagnosis Chronic Problems Former cigarette smoker (Chronic) Seizure disorder (Chronic) Primary small cell malignant neoplasm of lung, stage 4 (Chronic) with mets to the brain Cardiomyopathy (Chronic) Pacemaker (Chronic) Afib (Chronic) Hypertension (Chronic) Thrombocytopenia (Chronic)- stable Debility (Chronic) Hospital Course and Treatment Imaging Results: Clinical Impression(s) from Imaging Studies Chest X-Ray 07/10/17 15:55 IMPRESSION: Right hilum remaining prominent after a substantial improvement in the right lower lung infiltrates/atelectasis and pleural effusion. Left lung remains expanded and clear. Continued cardiomegaly. Right atrial and ventricular ICD unchanged. Electronically Signed: Lisa Rose MD at 16:22 EST , Service support , Renal Ultrasound 07/10/17 18:50 IMPRESSION: Normal size kidneys bilaterally without hydronephrosis or stones. 1 cm exophytic cyst of the right kidney. Unremarkable urinary bladder. Electronically Signed: Lisa Rose MD at 22:11 EST , Service support , Brain CT 07/12/17 08:42 IMPRESSION: Multiple bilateral intracerebral metastasis with mild edema as described. The amount of edema as decreased as compared to prior study. The abnormal enhancing nodule in the left cerebellum is not seen at this time. Electronically Signed: Macario Mirza MD at 9:33 EST Tel [phone], Service support , Brain CT 07/23/17 12:52 IMPRESSION: Essentially stable findings except for enlargement of the hypodense nodule in the right posterior temporal occipital lobe. Electronically Signed: Macario Mirza MD at 13:50 EST Tel [phone], Service support , Dr. Rene Church - [facility] oncology Hospice Operations: None Procedures: None Summary of Care Provided: Pt is a 57 YO male with a PMH of stage IV small cell lung CA with multiple mets to the brain who was admitted to the hospital on 07/10/[address] Church's office with dehydration. He had been treated with radiation to the brain over the preceding month and his intake had been poor. He was weak and falling at home. He was unable to stand at the bedside and had to have assistance to even sit at the edge of the bed. He was very weak, R>L side. He was admitted to the hospital and hydrated. An US of the LE' s showed acute deep vein thrombosis of the left distal femoral, popliteal, tibial peroneal trunk, posterior tibial, peroneal and soleus veins. CT scan of the brain was obtained and showed no intracranial bleeding and he was started on a continuous heparin infusion. He was later transitioned to Lovenox and discharged on Lovenox. Creatinine gradually improved with hydration and at DC was 0.86. Decadron was weaned. The platelet count remained stable throughout the admission even with the addition of the Lovenox. A lot of discussion with the pt and his took place in the hospital about code status and plans for DC. He failed to improve with PT/OT and was so weak he is unable to even sit at the EOB without assistance. Code status was amended from FULL CODE to DNR CCA. A repeat CT scan of the brain was done on and showed no improvement. There was an enlarging mass in the right posterior temporal occipital lobe despite recent [address] Church was notified of the CT results and came in to talk with the pt and his regarding prognosis. They elected to meet with Hospice and he was discharged home with hospice on 07/24/17. This note was generated with [employer]™ [employer] software. It may contain incorrect words, spelling, and punctuation that were not noted in checking the note before signing. Discharge Activity: - - Activity as tolerated Home Medications: Medications to take at Discharge Amiodarone HCl 400 mg PO QHS 04/19/16 Albuterol IH (ProAir) [Proair Hfa] 1 - 2 puff INHALATION Q4H PRN PRN 06/11/17 Digoxin 125 mcg PO SUMOWETHFR 06/11/17 Spironolactone [Aldactone] 25 mg PO DAILY 06/11/17 Levetiracetam [Keppra] 1,000 mg PO BID 07/10/17 Nystatin 5 ml PO 4X/DAY 07/10/17 Pantoprazole Sodium [Protonix] 40 mg PO DAILY 07/10/17 Acetaminophen [Tylenol Tablet] 650 mg PO Q6H PRN PRN tablet 07/24/17 Dexamethasone 4 mg PO TIDCM #36 tab 07/24/17 Enoxaparin [Lovenox] 100 mg SC Q12@0600,1800 syringe 07/24/17 Enoxaparin [Lovenox] 100 mg SC Q12@0600,1800 #60 syringe 07/24/17 Insulin Detemir [Levemir FlexPen] 20 units SC BID insuln.pen 07/24/17 Menthol/Lanolin/Calamine/Znox [Calmoseptine Ointment] 1 applic TOPICAL TID tube 07/24/17 Nystatin Powder [Mycostatin Powder] 1 applic TOPICAL BID bottle 07/24/17 Polyethylene Glycol 3350 [Miralax] 17 gm PO DAILY packet 07/24/17 Following Prescrptions Were Given to Patient: Enoxaparin [Lovenox] 100 mg SC Q12@0600,1800 #60 syringe Dexamethasone 4 mg PO TIDCM #36 tab Primary Care Physician: Branden Rebolledo MD [Primary Care Provider] - Patient Instructions: Using a Blood Sugar Log, Hyperglycemia (High Blood Sugar) , Hypoglycemia (Low Blood Sugar), Oral Medications for Type 2 Diabetes, Types of Insulin, Healthy Meals for Diabetes, Diabetes: Sick-Day Plan, Managing Your Glucose Level for Diabetes and Kidney Disease, Diabetes and Your Child: Checking Blood Sugar, Managing Diabetes: The A1C Test, Diabetes: Learning About Serving and Portion Sizes, Diabetes: Meal Planning, Diabetes: Understanding Carbohydrates, Fats, and Protein, Getting Support When You Have Diabetes, Managing Stress When You Have Diabetes, Understanding Type 2 Diabetes Disposition: Home with Hospice Minutes spent on discharge:: 40 Patient Condition:: Poor Meaningful Use Info Meaningful Use Diagnoses (Choose all that apply): VTE - VTE Anticoag overlap given w/in hospital stay or rx'd at nh?: No Pt receive overlap for 5 days?: No Reason overlap not ordered, prescribed, or given for 5 days: Treatment Not Indicated - Will be on Lovenox 100 mg BID for VTE in a patient with known CA Code Visit Inpatient E&M: [id number] [facility] H[facility]
--- NOTE | 2017-07-24 13:45 | PCM.PROGNOTE ---
Patient Problems: Active and Suspected Problems Dehydration (Acute) Depression (Suspected) JERRY (acute kidney injury) (Acute) Dvt femoral (deep venous thrombosis) (Acute) Subjective: He has no complaints today. - Physical Exam General: Alert, Oriented x3 Vital Signs Temp Pulse Resp BP Pulse Ox 98.1 F 83 18 111/63 98 07/24/17 11:01 07/24/17 11:04 07/24/17 11:01 07/24/17 11:01 07/24/17 11:01 Oxygen Delivery Method Room Air Weight: 104.7 kg Body Mass Index (BMI) 28.8 Intake and Output for Last 24 Hours 07/22/17 07/23/17 07/24/17 23:59 23:59 23:59 Intake Total 1390 / 1390 1190 / 1190 620 / 620 Output Total 2275 / 2275 1800 / 1800 850 / 850 Balance -885 / -885 -610 / -610 -230 / -230 POC Glucose 07/24/17 07/24/17 07/23/17 11:12 06:29 22:38 POC Glucose 113 H 111 H 134 H 07/23/17 18:07 POC Glucose 109 Assessment/Plan Active and Suspected Problems Dehydration (Acute) Depression (Suspected) JERRY (acute kidney injury) (Acute) Dvt femoral (deep venous thrombosis) (Acute) Metastatic NSCLC with brain metastases. -KPS is- 30-40%. -Reviewed CT findings from 07/12 and 07/23 with patient and family. All identifiable tumors stable (even when compared to brain CT 06/12) and one lesion progressing. -No symptomatic neurologic improvement since admission. -In depth discussion with patient and family regarding overall clinical situation. Patient has non-curable stage IV NSCLC with non-responding and progressive brain metastases despite WBRT completed 07/02. -Recommended home hospice care and gave patient and family time to think it over. After discussion among themselves, decision made for discharge home with hospice care. Time at bedside earlier this am >30 min.
== END 2017-07-24 15:10 | disposition hospice, home (50) | DRG 683 ==
LOC: ED 16:08 → MS3 17:15
PROVIDERS: Family Medicine; Internal Medicine; Physician Assistant; Admitting Provider Internal Medicine; Emergency Provider Emergency Medicine; Family Provider Internal Medicine; PCP Internal Medicine; Visit Provider Internal Medicine
DX: N17.9 Acute kidney failure, unspecified (principal); C79.31 Secondary malignant neoplasm of brain; I42.9 Cardiomyopathy, unspecified; D69.6 Thrombocytopenia, unspecified; I82.412 Acute embolism and thrombosis of left femoral vein; C34.92 Malignant neoplasm of unspecified part of left bronchus or lung; E09.65 Drug or chemical induced diabetes mellitus with hyperglycemia; I48.2 Chronic atrial fibrillation; E86.0 Dehydration; I95.1 Orthostatic hypotension; F32.9 Major depressive disorder, single episode, unspecified; I10 Essential (primary) hypertension; G40.909 Epilepsy, unspecified, not intractable, without status epilepticus; Z66 Do not resuscitate; K21.9 Gastro-esophageal reflux disease without esophagitis; E78.5 Hyperlipidemia, unspecified; Z95.0 Presence of cardiac pacemaker; Z87.891 Personal history of nicotine dependence; Z79.4 Long term (current) use of insulin; T38.0X5A Adverse effect of glucocorticoids and synthetic analogues, initial encounter
CPT/HCPCS: 36415; 70450; 70470; 71045; 76770; 80048; 80162; 82330; 82962; 83036; 83735; 84100; 84443; 85025; 85610; 85730; 93970; 97110; 97116; 97162; 97165; 97530; 97802; 97803; 99284; 99406; J7030; J7040; Q9967; A4216; J2405